=== PATIENT | female | born 1950 | race Caucasian/White ===

== ENCOUNTER 2016-08-14 12:59 | Emergency (ER) | payer MEDICARE ==
[2014-08-18 10:55] VITALS: BMI 26.1
[~2016-08-14 12:59] MED LIST: COUMADIN5 MG PO; HYDROCODONE-APA1 TAB PO; LUMIGAN 0.01%2.5 ML EACH EYE; PRINIVIL20 MG PO; RESTORIL15 MG PO; RESTORIL7.5 MG
[2016-08-14 14:04] LABS: BASOPHILS 0.2 % (0.0-2.0); EOSINOPHILS 0.1 % (0-7); HEMATOCRIT 47.4 % (36.0-48.0); HEMOGLOBIN 16.1 g/dL (12-16); IMMATURE GRANULOCYTES 0.1 % (0-5); LYMPHOCYTES 20.6 % (15-50); MCH 32.3 pg (26.0-34.0); MCV 95.2 fL (80.0-100.0); MEAN PLATELET VOLUME 9.1 fL (7.4-10.4); MONOCYTES 3.8 % (2-11); NEUTROPHILS 75.2 % (40-80); RBC 4.98 10x6/uL (4.00-5.40); RDW 13.7 % (11.5-14.5); WBC 9.9 10x3/uL (4.8-10.8)
[2016-08-14 14:10] LABS: PLATELET COUNT 366 10x3/uL (130-400)
[2016-08-14 14:15] LABS: ALBUMIN 4.8 g/dL (3.4-5.0); ALKALINE PHOSPHATASE 95 U/L (46-116); ALT (SGPT) 40 U/L (10-68); CALC OSMOLALITY 284 mosm/kg (275-300); CALCIUM 10.1 mg/dL (8.5-10.1); CARBON DIOXIDE 23.8 mmol/L (21.0-32.0); CHLORIDE - SERUM 103 mmol/L (98-107); CREATININE - SERUM 1.1 mg/dL (0.6-1.3); POTASSIUM - SERUM 4.3 mmol/L (3.5-5.1); PROTEIN - SERUM 8.8 g/dL (6.4-8.2); SODIUM 141 mmol/L (136-145); UREA NITROGEN 17 mg/dL (7-18); eGFR NON AFRICAN AMERICAN 52 mL/min (90-120)
[2016-08-14 14:18] LABS: GLUCOSE 129 mg/dL (74-106)
[2016-08-14 14:24] LABS: THYROID STIMULATING HORMONE 0.54 uIU/mL (0.36-3.74)
[2016-08-14 14:27] LABS: TROPONIN-I < 0.017 ng/mL (0.000-0.060)
== END 2016-08-14 15:30 | disposition home or self-care (01) ==
LOC: D.ER 12:59
PROVIDERS: Physician Assistant
DX: R00.0 Tachycardia, unspecified (principal); R42 Dizziness and giddiness; I10 Essential (primary) hypertension

== ENCOUNTER 2016-08-17 17:03 | Emergency (ER) | payer MEDICARE ==
[2014-08-18 10:55] VITALS: BMI 26.1
[2016-08-17 17:59] LABS: BASOPHILS 0.5 % (0.0-2.0); EOSINOPHILS 1.4 % (0-7); HEMATOCRIT 43.4 % (36.0-48.0); HEMOGLOBIN 14.9 g/dL (12-16); MCH 31.9 pg (26.0-34.0); MCHC 34.3 g/dL (31.0-37.0); MCV 92.9 fL (80.0-100.0); MEAN PLATELET VOLUME 8.8 fL (7.4-10.4); MONOCYTES 6.9 % (2-11); NEUTROPHILS 37.2 % (40-80); PLATELET COUNT 372 10x3/uL (130-400); RBC 4.67 10x6/uL (4.00-5.40); RDW 13.1 % (11.5-14.5); WBC 6.7 10x3/uL (4.8-10.8)
[2016-08-17 18:14] LABS: ALKALINE PHOSPHATASE 120 U/L (46-116); ALT (SGPT) 97 U/L (10-68); BILIRUBIN - TOTAL 0.67 mg/dL (0.2-1.3); CALC OSMOLALITY 283 mosm/kg (275-300); CALCIUM 10.2 mg/dL (8.5-10.1); CARBON DIOXIDE 22.9 mmol/L (21.0-32.0); CHLORIDE - SERUM 102 mmol/L (98-107); CREATININE - SERUM 1.1 mg/dL (0.6-1.3); GLUCOSE 112 mg/dL (74-106); POTASSIUM - SERUM 3.2 mmol/L (3.5-5.1); PROTEIN - SERUM 8.3 g/dL (6.4-8.2); SODIUM 140 mmol/L (136-145); UREA NITROGEN 25 mg/dL (7-18); eGFR NON AFRICAN AMERICAN 52 mL/min (90-120)
[2016-08-17 18:16] LABS: HELICOBACTER PYLORI IGG POSITIVE (NEGATIVE)
[2016-08-17 18:34] LABS: AMYLASE - SERUM 116 U/L (25-115); CREATINE KINASE 286 UL (21-215); LIPASE 243 U/L (73-393); MAGNESIUM - SERUM 2.2 mg/dL (1.8-2.4)
[2016-08-17 18:35] LABS: TROPONIN-I < 0.017 ng/mL (0.000-0.060)
[2016-08-17 18:36] LABS: CKMB 2.5 U/L (0.0-3.6)
[2016-08-17 20:55] LABS: UDS - AMPHET NEGATIVE QUAL (NEGATIVE); UDS - BARB NEGATIVE QUAL (NEGATIVE); UDS - BENZO POSITIVE QUAL (NEGATIVE); UDS - COCAINE NEGATIVE QUAL (NEGATIVE); UDS - METH NEGATIVE QUAL (NEGATIVE); UDS - OPIATE POSITIVE QUAL (NEGATIVE); UDS - PCP NEGATIVE QUAL (NEGATIVE); UDS - THC POSITIVE QUAL (NEGATIVE)
[2016-08-17 20:58] LABS: APPEARANCE HAZY (CLEAR); BILIRUBIN NEGATIVE (NEGATIVE); COLOR DK YELLOW (YELLOW); GLUCOSE NEGATIVE (NEGATIVE); KETONE SMALL mg/dL (NEGATIVE); LEUKOCYTE ESTERASE 1+ (NEGATIVE); NITRITE NEGATIVE (NEGATIVE); PROTEIN 2+ mg/dL (NEGATIVE); SPECIFIC GRAVITY 1.025 (1.005-1.020); UROBILINOGEN NORMAL (NORMAL)
[2016-08-17 20:59] LABS: BACTERIA MODERATE /hpf (NONE SEEN); EPITHELIAL CELLS 0-5 /hpf (0-5); GRANULAR CAST 0-5 /lpf (NONE SEEN); HYALINE CAST OCC /lpf (NONE SEEN); MUCUS <1+ /lpf (NONE SEEN); RED CELLS - URINE 0-5 /hpf (0-5)
== END 2016-08-17 23:15 | disposition home or self-care (01) ==
LOC: D.ER 17:03
PROVIDERS: Emergency Medicine; Nurse Practitioner Family
DX: R10.11 Right upper quadrant pain (principal); R11.2 Nausea with vomiting, unspecified; I10 Essential (primary) hypertension

== ENCOUNTER 2016-09-12 11:15 | Inpatient (IN) | payer MEDICARE ==
[~2016-09-12] VITALS: Ht 162.6 cm; Wt 66.0 kg
[2016-09-12 12:27] LABS: BASOPHILS 0.4 % (0.0-2.0); EOSINOPHILS 0.9 % (0-7); HEMATOCRIT 45.8 % (36.0-48.0); HEMOGLOBIN 15.8 g/dL (12-16); IMMATURE GRANULOCYTES 0.1 % (0-5); LYMPHOCYTES 47.4 % (15-50); MCH 32.8 pg (26.0-34.0); MCHC 34.5 g/dL (31.0-37.0); MEAN PLATELET VOLUME 9.1 fL (7.4-10.4); MONOCYTES 6.4 % (2-11); NEUTROPHILS 44.8 % (40-80); PLATELET COUNT 300 10x3/uL (130-400); RBC 4.82 10x6/uL (4.00-5.40); RDW 13.2 % (11.5-14.5); WBC 7.4 10x3/uL (4.8-10.8)
[2016-09-12 12:37] LABS: APTT 31.6 SECONDS (22.8-39.4)
[2016-09-12 12:38] LABS: INR 1.11 (0.85-1.17); PROTIME 14.1 SECONDS (11.6-15.0)
[2016-09-12 12:44] LABS: ALBUMIN 4.4 g/dL (3.4-5.0); ALKALINE PHOSPHATASE 103 U/L (46-116); ALT (SGPT) 53 U/L (10-68); CALC OSMOLALITY 283 mosm/kg (275-300); CARBON DIOXIDE 24.5 mmol/L (21.0-32.0); CHLORIDE - SERUM 104 mmol/L (98-107); CREATININE - SERUM 1.5 mg/dL (0.6-1.3); GLUCOSE 93 mg/dL (74-106); POTASSIUM - SERUM 3.4 mmol/L (3.5-5.1); SODIUM 141 mmol/L (136-145); UREA NITROGEN 22 mg/dL (7-18); eGFR NON AFRICAN AMERICAN 37 mL/min (90-120)
[2016-09-12 12:46] LABS: CREATINE KINASE 136 UL (21-215); LIPASE 280 U/L (73-393)
[2016-09-12 12:48] LABS: TROPONIN-I < 0.017 ng/mL (0.000-0.060)
[2016-09-12 13:44] LABS: UDS - AMPHET NEGATIVE QUAL (NEGATIVE); UDS - BARB NEGATIVE QUAL (NEGATIVE); UDS - BENZO POSITIVE QUAL (NEGATIVE); UDS - COCAINE NEGATIVE QUAL (NEGATIVE); UDS - METH NEGATIVE QUAL (NEGATIVE); UDS - OPIATE POSITIVE QUAL (NEGATIVE); UDS - PCP NEGATIVE QUAL (NEGATIVE); UDS - THC POSITIVE QUAL (NEGATIVE)
[2016-09-12 13:52] LABS: APPEARANCE HAZY (CLEAR); BACTERIA MODERATE /hpf (NONE SEEN); BILIRUBIN NEGATIVE (NEGATIVE); COLOR YELLOW (YELLOW); EPITHELIAL CELLS 0-5 /hpf (0-5); GLUCOSE NEGATIVE (NEGATIVE); HYALINE CAST OCC /lpf (NONE SEEN); KETONE NEGATIVE (NEGATIVE); LEUKOCYTE ESTERASE 1+ (NEGATIVE); MUCUS >1+ /lpf (NONE SEEN); NITRITE NEGATIVE (NEGATIVE); PROTEIN TRACE mg/dL (NEGATIVE); RED CELLS - URINE NONE SEEN /hpf (0-5); SPECIFIC GRAVITY 1.015 (1.005-1.020); UROBILINOGEN NORMAL (NORMAL)
[2016-09-13] VITALS (7 sets, daily range): BP systolic 135–177; BP diastolic 70–99; BMI 24.0
--- NOTE | 2016-09-13 00:01 | NUR ---
RECEIVED TO ROOM 2109 VIA WHEELCHAIR FROM EMERGENCY DEPT. DX: CHEST PAIN/ TACHYCARDIA/VOMITTING. AWAKE AND ALERT X 4. DENIES ANY CHEST PAIN OR DISCOMFORT AT THIS TIME. IV IN RIGHT AC IS SALINE LOCKED. VS STABLE. TELEMETRY ON AND SHOWS SR AT 70/MIN. WILL CONTINUE TO MONITOR.
[2016-09-13] MEDS ORDERED: LOPRESSOR25 MG PO (01:52)
[2016-09-13] MEDS ORDERED: NEXIUM40 MG PO (01:53)
[2016-09-13] MEDS ORDERED: CARAFATE1 G/10 ML PO (01:54)
[2016-09-13] MEDS ORDERED: CYCLOBENZAPRINE10 MG PO (01:56)
[2016-09-13] MEDS ORDERED: OXYCONTIN10 MG (02:03)
[2016-09-13 07:03] LABS: BASOPHILS 0.8 % (0.0-2.0); EOSINOPHILS 1.6 % (0-7); HEMATOCRIT 40.1 % (36.0-48.0); HEMOGLOBIN 13.5 g/dL (12-16); LYMPHOCYTES 42.4 % (15-50); MCH 32.5 pg (26.0-34.0); MCHC 33.7 g/dL (31.0-37.0); MCV 96.6 fL (80.0-100.0); MEAN PLATELET VOLUME 8.7 fL (7.4-10.4); MONOCYTES 5.5 % (2-11); NEUTROPHILS 49.7 % (40-80); PLATELET COUNT 263 10x3/uL (130-400); RBC 4.15 10x6/uL (4.00-5.40); RDW 13.4 % (11.5-14.5)
[2016-09-13 07:08] LABS: WBC 4.9 10x3/uL (4.8-10.8)
[2016-09-13 07:16] LABS: ALBUMIN 3.7 g/dL (3.4-5.0); ANION GAP 12.6 mmol/L (8-16); BILIRUBIN - TOTAL 0.73 mg/dL (0.2-1.3); CARBON DIOXIDE 26.1 mmol/L (21.0-32.0); POTASSIUM - SERUM 3.7 mmol/L (3.5-5.1); PROTEIN - SERUM 6.8 g/dL (6.4-8.2)
[2016-09-13 07:17] LABS: CREATININE - SERUM 0.9 mg/dL (0.6-1.3)
--- NOTE | 2016-09-13 08:00 | NUR ---
PATIENT IS AWAKE AND ALERT SHE DID REQUEST HER BLOOD SUGAR BE CHECKED, SHE SAYS SHE HAS HYPOGYCEMIA. DID START IV D5 1/2 NS AT 125 NOW.
--- NOTE | 2016-09-13 10:30 | NUR ---
IV SITE ON RIGHT BLEW, CALLED RASHARD IV NURSE TO RESITE, RASHARD ATTEMPTED WITHOUT SUCCESS, SHE WAS ABLE TO SITE A MEDLINE IN LEFT UPPER ARM.
--- NOTE | 2016-09-13 11:54 | NUR ---
PATIENT ASKS FOR PAIN MED, SHE RATES PAIN 8/10 GENERALIZED.
--- NOTE | 2016-09-13 12:40 | NUR ---
PATIENT HAS COMPANY, BUT SAYS PAIN IS LESS.
--- NOTE | 2016-09-13 15:21 | NUR ---
RATIONALE FOR SCD'S EXPLAINED. REFUSED SCD'S AT THIS TIME
--- NOTE | 2016-09-13 16:30 | NUR ---
PATIENT REQUESTING SOMETHING TO EAT, CALLED DR. HUSTON AND HE SAYS "YES, SHE CAN EAT" ORDERED HER A CARDIAC SOFT DIET. PATIENT SAYS SHE EATS VERY BLAND AND SOFT FOOD. SHE SAYS SHE HAS NOT HAD MUCH TO EAT LATELY.
--- NOTE | 2016-09-13 18:15 | NUR ---
IV D/C'D, SALINE LOCKED MEDLINE.
--- NOTE | 2016-09-13 20:10 | NUR ---
REPORT RECEIVED AND CARE ASSUMED. RESTING IN BED IN NO ACUTE DISTRESS. SEE ASSESSMENT FLOW SHEET FOR FURTHER DETAILS. WILL CINTINUE TO MONITOR.
[2016-09-14] VITALS: BP 115/72
--- NOTE | 2016-09-14 01:40 | NUR ---
URINE SENT TO LAB PER CLOTHING PATTERN PREPARER.
[2016-09-14 03:05] LABS: APPEARANCE HAZY (CLEAR); BILIRUBIN NEGATIVE (NEGATIVE); COLOR YELLOW (YELLOW); GLUCOSE NEGATIVE (NEGATIVE); KETONE NEGATIVE (NEGATIVE); LEUKOCYTE ESTERASE TRACE (NEGATIVE); NITRITE NEGATIVE (NEGATIVE); PROTEIN NEGATIVE (NEGATIVE); UROBILINOGEN NORMAL (NORMAL)
[2016-09-14 03:08] LABS: BACTERIA MANY /hpf (NONE SEEN); EPITHELIAL CELLS 0-5 /hpf (0-5); GRANULAR CAST RARE /lpf (NONE SEEN); HYALINE CAST 0-5 /lpf (NONE SEEN); MUCUS >1+ /lpf (NONE SEEN)
[2016-09-14 03:09] LABS: AMORPHOUS SEDIMENT <1+ /lpf (NONE SEEN); CALCIUM OXALATE CRYSTALS OCC /hpf (NONE SEEN)
[2016-09-14 06:28] VITALS: BP 105/61
[2016-09-14 06:54] LABS: BASOPHILS 0.4 % (0.0-2.0); EOSINOPHILS 2.1 % (0-7); HEMATOCRIT 36.2 % (36.0-48.0); LYMPHOCYTES 38.1 % (15-50); MCH 32.1 pg (26.0-34.0); MCHC 33.1 g/dL (31.0-37.0); MCV 96.8 fL (80.0-100.0); NEUTROPHILS 52.4 % (40-80); PLATELET COUNT 244 10x3/uL (130-400); RBC 3.74 10x6/uL (4.00-5.40); RDW 13.5 % (11.5-14.5); WBC 5.3 10x3/uL (4.8-10.8)
[2016-09-14 07:26] LABS: ALBUMIN 3.2 g/dL (3.4-5.0); ANION GAP 11.1 mmol/L (8-16); BILIRUBIN - TOTAL 0.5 mg/dL (0.2-1.3); CARBON DIOXIDE 26.9 mmol/L (21.0-32.0); CREATININE - SERUM 0.9 mg/dL (0.6-1.3); PROTEIN - SERUM 5.9 g/dL (6.4-8.2); THYROID STIMULATING HORMONE 1.01 uIU/mL (0.36-3.74)
[2016-09-14 08:00] VITALS: BP 95/72
--- NOTE | 2016-09-14 08:00 | NUR ---
PATIENT WAS LAYING IN BED. ALERT AND ORIENTED. HAS BEEN NPO SINCE MIDNIGHT FOR EGD. RATES PAIN 8/10 TO NECK HOWEVER DOES HAVE PO MED FOR PAIN BUT IS NPO. VISITOR AT BEDSIDE.
[2016-09-14 10:52] VITALS: Ht 162.6 cm; Wt 66.0 kg
[2016-09-14 11:46] VITALS: BP 150/86
--- NOTE | 2016-09-14 15:37 | NUR ---
PRE-OP OF LR AND PEPCID ADMINISTERED FOR EGD.
[2016-09-14 16:00] VITALS: BP 135/82
--- NOTE | 2016-09-14 16:30 | NUR ---
PATIENT REQUESTED FSBS BE CHECKED BECAUSE SHE WASN'T FEELING RIGHT AND THOUGHT HER BLOOD SUGAR HAD DROPPED. FSBS OBTAINED AND WAS 74F. PATIENT RELATES SHE PASSES OUT WHEN HER BLOOD SUGAR DROPS TO 60. PATIENT WAS COOL AND CLAMMY. DR WOOD HERE AND ORDER RECEIVED FOR AMP OF D50. ADMINISTERED PER LEFT PERIPHERAL IV.
--- NOTE | 2016-09-14 17:00 | NUR ---
DOWN TO OUTPATIENT FOR EGD.
[2016-09-14 20:00] VITALS: BP 174/101
--- NOTE | 2016-09-14 20:15 | NUR ---
RECEIVED REPORT AND CARE ASSUMED. LYING IN BED RESTING QUIETLY. DENIES ANY NEEDS AT THIS TIME. BED IN LOW POSITION AND CALL LIGHT IN EASY REACH. WILL CONTINUE TO MONITOR.
--- NOTE | 2016-09-14 21:30 | NUR ---
SEE ASSESSMENT FLOW SHEET FOR FUTRTHER DETAILS.
--- NOTE | 2016-09-14 21:31 | NUR ---
NORCO GIVEN PO FOR LEVEL#8 GENERALIZED PAIN.
[2016-09-15] VITALS: BP 97/74
[2016-09-15 04:00] VITALS: BP 161/75
[2016-09-15 06:52] LABS: BASOPHILS 0.8 % (0.0-2.0); EOSINOPHILS 2.4 % (0-7); HEMATOCRIT 37.1 % (36.0-48.0); HEMOGLOBIN 12.4 g/dL (12-16); IMMATURE GRANULOCYTES 0.2 % (0-5); LYMPHOCYTES 44.5 % (15-50); MCHC 33.4 g/dL (31.0-37.0); MCV 95.9 fL (80.0-100.0); MEAN PLATELET VOLUME 8.9 fL (7.4-10.4); MONOCYTES 5.9 % (2-11); NEUTROPHILS 46.2 % (40-80); PLATELET COUNT 247 10x3/uL (130-400); RBC 3.87 10x6/uL (4.00-5.40); RDW 13.3 % (11.5-14.5); WBC 5.1 10x3/uL (4.8-10.8)
[2016-09-15 07:09] LABS: ALBUMIN 3.4 g/dL (3.4-5.0); ALKALINE PHOSPHATASE 75 U/L (46-116); ALT (SGPT) 27 U/L (10-68); CALC OSMOLALITY 281 mosm/kg (275-300); CALCIUM 9.1 mg/dL (8.5-10.1); CARBON DIOXIDE 27.5 mmol/L (21.0-32.0); CHLORIDE - SERUM 106 mmol/L (98-107); CREATININE - SERUM 0.8 mg/dL (0.6-1.3); GLUCOSE 90 mg/dL (74-106); POTASSIUM - SERUM 3.6 mmol/L (3.5-5.1); PROTEIN - SERUM 6.5 g/dL (6.4-8.2); SODIUM 142 mmol/L (136-145); UREA NITROGEN 9 mg/dL (7-18); eGFR NON AFRICAN AMERICAN 76 mL/min (90-120)
--- NOTE | 2016-09-15 07:53 | NUR ---
AM ROUNDING DONE WITH PATIENT COMPLAINING OF PAIN 6/10 TO "ALL MY JOINTS AND NECK". WILL GIVE NORCO WITH AM MEDS. LEFT MIDLINE SEEN, SALINE LOCK. ON HEART MONITOR SHOWING SR, HR 75. ON ROOM AIR. WILL COTNINUE TO MONITOR.
[2016-09-15 09:30] VITALS: BP 134/91
--- NOTE | 2016-09-15 12:47 | NUR ---
PT C/O "FEELING IT IN HER EARS" AND WANTING HER BP TAKEN. BP ON THE MACHINE WAS 214/107. BP TAKEN WITH A MANUAL AND WAS 204/102. NIGEL (DR BERGER'S NURSE) NOTIFIED. AWAITING ORDERS
[2016-09-15 12:49] VITALS: BP 204/102
[2016-09-15 14:03] VITALS: BP 162/88
[2016-09-15] MEDS ORDERED: CATAPRES0.1 MG PO (14:06)
[2016-09-15] MEDS ORDERED: ZOLOFT50 MG PO (14:08)
--- NOTE | 2016-09-15 15:13 | NUR ---
1507-WHILE PATIENT LAYING FLAT, LEFT MIDLINE REMOVED WITH CATH TIP INTACT. TO LAY FLAT X 15 MIN.
--- NOTE | 2016-09-15 16:28 | NUR ---
VERBAL AND WRITEN DISCHARGE INSTRUCTION GIVEN TO PATIENT. DICHARGED HOME VIA WHEELCHAIR.
--- NOTE | 2016-09-19 12:04 | OP ---
PATIENT NAME: YAJAIRA SMITH MEDICAL RECORD: [id number] :48 LOCATION:D.M2 D.0 ADMISSION DATE:09/13/16 SURGEON: CONCEPCION HUSTON DO DATE OF OPERATION: 09/14/2016 PROCEDURE: EGD with biopsies. ENDOSCOPIST: Concepcion Huston DO SCOPE: Olympus video gastroscope. MEDICATIONS: Propofol 220 mg IV per anesthesia. INDICATIONS FOR PROCEDURE: Persistent nausea and vomiting and epigastric abdominal pain. FINDINGS: Informed consent was given. The patient was made comfortable with the above medication. After reaching an adequate level of sedation by slow IV push, the patient was placed on the left side. The endoscope was then advanced under direct visualization through the mouth to the second portion of the duodenum. The upper, middle and distal thirds of the esophagus appeared normal. At the GE junction, there was evidence of some mild LA class B reflux induced esophagitis. Scope was advanced in the stomach and retroflexed to view the cardia, where a small sliding hiatal hernia was present. The fundus of the stomach as well as the body and antrum all appeared normal. Random biopsies were taken of the antrum, incisura and body of the stomach and sent for histology and rule out H. pylori. The scope was advanced into the duodenum, which showed normal mucosa in the bulb and second portion. The scope was withdrawn from the patient. The patient tolerated the procedure well and there were no complications. ESTIMATED BLOOD LOSS: Less than 5 cc. IMPRESSION: 1. Reflux induced esophagitis at the GE junction, which is mild. 2. Small sliding hiatal hernia. 3. Nausea and vomiting, which has resolved today. PLAN AND RECOMMENDATIONS: 1. Continue current medications. 2. Start regular diet at this time and monitor for changes in symptoms. TRANSINT:[id number] Voice Confirmation ID: [id number] DOCUMENT ID: [id number] CONCEPCION HUSTON DO at 1204 CC: [id number] DICTATION DATE: 09/14/16 172 INVESTIGATIVE REPORTER: 09/14/162252 DIS IN 09/15/16 [id number] [place] [address]
--- NOTE | 2016-09-19 14:38 | EC ---
PATIENT:YAJAIRA SMITH DATE OF SERVICE: 09/13/16 SEX: F MEDICAL RECORD: [id number] DATE OF : 48 LOCATION:D.M2 D.211 AGE OF PATIENT: 66 ADMISSION DATE: 09/13/16 REFERRING PHYSICIAN: INTERPRETING PHYSICIAN: PHIL ROSAS MD ECHOCARDIOGRAM REPORT ECHO CHARGES 4 ECHO COMPLETE CLINICAL DIAGNOSIS: SOB/HTN ECHOCARDIOGRAPHIC MEASUREMENTS (adult normal given) AC root (d.<3.7cm) 3.5 LV Septum d (<1.2 cm> 1.2 Valve Excursion 1.9 LV Septum (systole) 1.7 Left Atria (s.<4.0cm> 3.1 LVPW d(<1.2cm) 1.2 RV (d.<2.3cm) 2.2 LVPW (sytole) 1.5 LV diastole(<5.6CM) 3.8 MV E-F(>70mm/sec) LV systole 2.1 LVOT Diameter 1.9 MV exc.(>10mm) 1.4 Est.ejection fraction (50-75%) Pericardial Effusion N DOPPLER: LVIT A 126 E 77.0 LA RVSP 25 LVOT 143 AOP1/2T Asc. Ao 142 RVOT 101 RA PA 110 AV Gradient Peak 8.09 AV Mean 5.06 AV Area 2.4 MV Gradient Peak 5.28 MV Mean 2.20 MV Area COMMENTS: Education And Training Coordinator: Renetta WHITE Spray Rig Operator:1 Dr. Rosas TAPE# PACS DATE OF SERVICE: 09/13/2016 FINDINGS: 1. Left ventricular chamber size is within normal limits. Left ventricular systolic function is normal. Overall ejection fraction estimated at 65%. 2. Left atrium is within normal limits at 3.1 cm. Right atrium and right ventricle chamber sizes are as well within normal limits. 3. Valvular structures have normal structure and motion. 4. Doppler interrogation reveals only trace mitral regurgitation, mild tricuspid regurgitation, no other valvular insufficiency or stenosis and ECHOCARDIOGRAM REPORT [id number] YAJAIRA SMITH pulmonary systolic pressure is normal estimated at 25 mmHg. 5. No evidence of pericardial effusion or left ventricular thrombus. TRANSINT:[id number] Voice Confirmation ID: [id number] DOCUMENT ID: [id number] PHIL ROSAS MD at 1438 CC: [id number] DICTATION DATE: 09/13/16 1705 EMBOSSING TOOL SETTER: 09/14/16 0906 DIS IN 09/15/16 [facility] [address] [id number]
== END 2016-09-15 16:29 | disposition home or self-care (01) | DRG 392 ==
LOC: D.ER 11:15 → D.SDCHOLD 15:25 → OBSVTIME 15:25 → D.ER 15:25 → D.M2 15:25
PROVIDERS: Emergency Medicine; Internal Medicine Gastroenterology; ADMIT Family Medicine
PROC: 05HC33Z Insertion of Infusion Device into Left Basilic Vein, Percutaneous Approach (ICD-10-PCS; principal; 2016-09-13)
PROC: B54NZZA Ultrasonography of Left Upper Extremity Veins, Guidance (ICD-10-PCS; 2016-09-13)
PROC: 0DB68ZX Excision of Stomach, Via Natural or Artificial Opening Endoscopic, Diagnostic (ICD-10-PCS; 2016-09-14)
DX: K52.9 Noninfective gastroenteritis and colitis, unspecified (principal); N17.9 Acute kidney failure, unspecified; N39.0 Urinary tract infection, site not specified; K21.0 Gastro-esophageal reflux disease with esophagitis; K44.9 Diaphragmatic hernia without obstruction or gangrene; K31.84 Gastroparesis; I08.1 Rheumatic disorders of both mitral and tricuspid valves; R00.0 Tachycardia, unspecified; I10 Essential (primary) hypertension; E04.1 Nontoxic single thyroid nodule

== ENCOUNTER 2017-08-15 10:41 | Outpatient (CLI) | payer MEDICARE ==
[~2017-08-15] VITALS: Ht 162.6 cm; Wt 80.5 kg
--- NOTE | ~2017-08-15 | OP ---
PATIENT NAME: YAJAIRA SMITH MEDICAL RECORD: [id number] :48 LOCATION:D.CAT ADMISSION DATE: SURGEON: SHABBIR QUEZADA MD DATE OF OPERATION: 08/15/2017 PROCEDURE: Left heart catheterization, selective coronary angiography, right femoral artery approach. CATHETERS: A 5-Malagasy sheath, 5/4 left and right Russ, 5/4 pig. The procedure was well tolerated. The patient was returned to the mckeon, sheath removed, and proceeded immediately to PTCA stenting of the LAD. FINDINGS: Left ventriculography in 30-degree LORENZANA view: Normal wall motion, normal systolic function. CORONARY ANATOMY. LEFT MAIN: Left main is free of disease. LAD: In its mid portion has a diffuse stenosis of 80%. CIRCUMFLEX: The circumflex is a dominant left system, has one moderate sized OM with a discrete 80% stenosis. RIGHT CORONARY ARTERY: Rudimentary, no significant disease. IMPRESSION: Two-vessel disease. PLAN: Intervention of the LAD, intervention of circumflex and OM at a later date. DESCRIPTION OF PROCEDURE: A 5-Malagasy sheath was changed for a 6-Malagasy sheath. EBU guide catheter provided good guide support followed by 300 cm Whisper wire was placed across the occluded LAD down portion of this vessel. Stent deployed was a 2.5 x 18 Davey drug-eluting stent up to 14 atmospheres for 45 seconds. Final injection shows excellent resolution of 80% stenosis, no significant residual. GAVI flow was 3 throughout the procedure. Sheath was closed with ExoSeal device. Plavix was loaded in the lab. Plan for intervention to the OM at a later date. TRANSINT:[id number] Voice Confirmation ID: [id number] DOCUMENT ID: [id number] SHABBIR QUEZADA MD at 1512 CC: [id number] DICTATION DATE: 08/15/17 1346 LEGAL SECRETARY: 08/15/17 1509 DEP CLI 08/15/[address] [address]
--- NOTE | ~2017-08-15 | HEMODYNAMI ---
PATIENT:YAJAIRA SMITH MEDICAL RECORD: [id number] : 48 LOCATION:CRISTOPHER ADMISSION DATE: 08/15/17 Generatedon:08/15/201713:48 Patient name: YAJAIRA SMITH Patient #: [id number] SSN : : 1950 Date of study: 08/15/2017 Page: Of Hemodynamic Procedure Report Patient Data Patient Demographics Procedure consent was obtained First Name: YAJAIRA Gender: Female Last Name: LUIS : 1950 [facility] Initial: E Age: 67 year(s) Patient #: [id number] Race: Unknown Additional ID: [id number] Contact details Address: [address] [place] [address] State: [place] City: [place] Zip code: [address] Past Medical History Allergies: No known allergies Admission Admission Data Admission Date: 08/15/2017 Admission Time: 10:41 Admit Source: Other Lab Results Lab Result Date: 08/15/2017 Lab Result Time: 11:19 Biochemistry Name Units Result Min Max BUN mg/dl 17 --(---*)-- 7 18 Creatinine mg/dl 1.5 --(----)-* 0.6 1.3 CBC Name Units Result Min Max Hematocrit % 43.2 --(*---)-- 42 54 Hemoglobin g/dl 14.8 --(-*--)-- 13.5 17.5 Procedure Procedure Types Cath Procedure Diagnostic Procedure LHC LHC w/Coronaries PCI Procedure Coronary Stent Coronary Stent Initial Miscellaneous Procedures Moderate Sedation up to 15 minutes Procedure Description Procedure Date Procedure Date: 08/15/2017 Procedure Start Time: 13:20 Procedure End Time: 13:40 Procedure Staff Name Function Marizol Vasquez RN Nurse Jas Oliveros MD Performing Physician Rico Mason RT Monitor Mamie Pizarro RT Scrub Mercedez Chisholm RN Nurse Procedure Data Cath Procedure Fluoroscopy Diagnostic fluoroscopy Total fluoroscopy Time: 3.6 time: 3.6 min min Diagnostic fluoroscopy Total fluoroscopy dose: 568 dose: 568 mGy mGy Contrast Material Contrast Material Type Amount (ml) Isovue 300 104 Entry Location Entry Primary Successful Side Size Upsize Upsize Entry Closure Succes sful Closure Location (Fr) 1 (Fr) 2 (Fr) Remarks Device Remarks Femoral Right 5 Fr 6 Fr Exoseal artery Short Estimated blood loss: 10 ml Diagnostic catheters Device Type Used For End Catheter Placement MULTIPACK JL 4.0 5Fr Procedure catheter MULTIPACK 3DRC 5Fr Procedure catheter MULTIPACK Pigtail 5 Fr Procedure catheter Procedure Complications No complications Procedure Medications Medication Administration Route Dosage 0.9% NaCl I.V. 100 ml/hr Oxygen NC 2 l/min Lidocaine 2% added to field 20 Heparin Flush Bag added to field 2 bags (1000units/500ml NS) Fentanyl I.V. 50 mcg Versed I.V. 1 mg Versed I.V. 1 mg Fentanyl I.V. 50 mcg Fentanyl I.V. 50 mcg Versed I.V. 1 mg Versed I.V. 1 mg Fentanyl I.V. 50 mcg Fentanyl I.V. 50 mcg Versed I.V. 1 mg Heparin Bolus I.V. 4000 units Integrilin (Bolus I.V. 7.3 ml 2mg/ml) Versed I.V. 1 mg Fentanyl I.V. 50 mcg Fentanyl I.V. 50 mcg Versed I.V. 1 mg Fentanyl I.V. 50 mcg Versed I.V. 1 mg Plavix P.O. 600 mg Hemodynamics Rest HGB: 14.8 (g/dl) Heart Rate: 84 (bpm) Pressure Samples Time Site Value (mmHg) Purpose Heart Use Rate(bpm) 13:25 LV 139/10,15 Snapshot 74 13:26 LV 124/12,13 Pullback 82 13:26 AO 120/76(92) Pullback 82 Gradients Valve Time Site 1 Site 2 Mean SEP/DFP Peak To Heart Use (mmHg) (sec/min) Peak Rate (mmHg) (bpm) Aortic 13:26 LV AO 5 17 4 82 124/12,13 120/76(92) Calculations Valve P-P Mean Valve Index Valve Source Name Gradient Area Flow (cm2) Aortic 4 5 4 5 Snapshots Pre Cath Intra NCS Post Cath Vital Signs Time Heart Resp SPO2 etCO2 NIBP (mmHg) Rhythm Pain Sedation Rate (ipm) (%) (mmHg) Status Level (bpm) 13:05:45 93 20 96 18 144/93(112) NSR 0 (11) 10(A) , No pain 13:10:05 89 16 100 24.8 138/76(113) NSR 0 (11) 10(A) , No pain 13:14:15 82 16 100 19.5 128/91(113) NSR 0 (11) 10(A) , No pain 13:18:25 89 14 100 25.6 121/82(102) NSR 0 (11) 10(A) , No pain 13:22:35 81 16 100 33.1 114/77(97) NSR 0 (11) 10(A) , No pain 13:26:45 78 18 100 42.1 116/68(104) NSR 0 (11) 10(A) , No pain 13:30:49 94 15 100 30.8 106/77(86) NSR 0 (11) 10(A) , No pain 13:34:54 95 16 100 39.1 124/72(109) NSR 0 (11) 10(A) , No pain 13:39:00 92 18 100 32.4 103/77(85) NSR 0 (11) 10(A) , No pain Medications Time Medication Route Dose Verified Delivered Reason Not es Effectiveness by by 13:05:14 0.9% NaCl I.V. 100ml/hr Jas Newsome used for [facility] Kevin Chisholm RN procedure 13:05:25 Oxygen NC 2 l/min Jas Newsome Per physician [facility] Kevin Chisholm RN, MD 13:05:33 Lidocaine 2% added 20ml Jas Mark for local to vial [facility] anesthetic field MD [place] 13:05:44 Heparin Flush added 2 bags Jas Mark used for Bag to [facility] procedure (1000units/500ml field MD [place] NS) 13:15:43 Fentanyl I.V. 50 mcg Jas Newsome for sedation [facility] Kevin Chisholm RN, MD 13:15:53 Versed I.V. 1 mg Jas Murphyy for sedation [facility] Kevin Chisholm RN, MD 13:17:11 Versed I.V. 1 mg Jas Murphyy for sedation [facility] Kevin Chisholm RN, MD 13:17:14 Fentanyl I.V. 50 mcg Jas Mercedez for sedation [facility] Kevin Chisholm RN, MD 13:18:39 Fentanyl I.V. 50 mcg Jas Mercedez for sedation [facility] Kevin Chisholm RN, MD 13:18:46 Versed I.V. 1 mg Jas Mercedez for sedation [facility] Kevin Chisholm RN, MD 13:22:15 Versed I.V. 1 mg Jas Mercedez for sedation [facility] Kevin Chisholm RN, MD 13:22:20 Fentanyl I.V. 50 mcg Jas Mercedez for sedation [facility] Kevin Chisholm RN, MD 13:26:10 Fentanyl I.V. 50 mcg Jas Mercedez for sedation [facility] Kevin Chisholm RN, MD 13:26:16 Versed I.V. 1 mg Jas Mercedez for sedation [facility] Kevin Chisholm RN, MD 13:28:27 Fentanyl I.V. 50 mcg Jas Mercedez for sedation [facility] Kevin Chisholm RN, MD 13:28:33 Versed I.V. 1 mg Jas Mercedez for sedation [facility] Kevin Chisholm RN, MD 13:31:13 Fentanyl I.V. 50 mcg Jas Mercedez for sedation [facility] Kevin Chisholm RN, MD 13:31:25 Versed I.V. 1 mg Jas Mercedez for sedation [facility] Kevin Chisholm RN, MD 13:31:45 Heparin Bolus I.V. 4000 Jas Mercedez for jamie ified units [facility] Kevin Chisholm RN anticoagulation by dr. MD christiansen 13:31:59 Integrilin I.V. 7.3ml Jas Mercedez for was te (Bolus 2mg/ml) [facility] Kevin Chisholm RN antiplatelet 2.7ML MD therapy 13:35:26 Versed I.V. 1 mg Jas Mercedez for sedation [facility] Kevin Chisholm RN, MD 13:35:39 Fentanyl I.V. 50 mcg Jas Mercedez for sedation [facility] Kevin Chisholm RN, MD 13:46:34 Plavix P.O. 600 mg Jas Mercedez for [facility] Kevin Chisholm RN antiplatelet therapy Procedure Log Time Note 12:50:51 Mamie Pizarro RT(R) sent for patient. Start room use. 13:01:26 Informed consent obtained and on chart 13:01:29 Admit Source: Other 13:01:50 Diagnostic Cath status Elective 13:01:58 Time tracking: Regular hours 13:02:01 Plan of Care:Hemodynamics will remain stable., Cardiac rhythm will remain stable., Comfort level will be maintained., Respiratory function will remain adequate., Patient/ family verbilizes understanding of procedure., Procedure tolerated without complication., Recovers from procedure without complications.. 13:02:12 Patient received from Pre/Post Procedure Room to CCL 2 Alert and oriented. Tansferred to table in Supine position. 13:02:13 ECG and BP/O2 sat monitors applied to patient. 13:02:13 Correct patient and procedure confirmed by team. 13:02:13 Warm blankets applied, and murtaza hugger turned on for patient comfort. 13:02:32 H&P Date Dictated: 08/10/2017 Within 30 days and on chart., H&P Addendum completed by physician on day of procedure. (MUST COMPLETE FOR ALL OUTPATIENTS). 13:02:59 Patient allergic to No known allergies 13:04:44 Vital chart was started 13:05:14 0.9% NaCl 100ml/hr I.V. was administered by Mercedez Chisholm RN; used for procedure; 13:05:25 Oxygen 2 l/min NC was administered by Mercedez Chisholm RN; Per physician; 13:05:33 Lidocaine 2% 20ml vial added to field was administered by Jas Oliveros MD; for local anesthetic; 13:05:44 Heparin Flush Bag (1000units/500ml NS) 2 bags added to field was administered by Jas Oliveros MD; used for procedure; 13:08:35 Is the patient allergic to Iodine/contrast media? No. 13:11:57 Is patient on blood thinner?No 13:11:58 Patient diabetic? No. 13:12:02 Snore? Yes 13:12:02 Previous problem with sedation/anesthesia? No ? 13:12:03 Sleep apnea? No 13:12:04 Deviated septum? No 13:12:05 Opens mouth fully? Yes 13:12:06 Sticks out tongue? Yes 13:12:08 Airway obstruction? No ? 13:12:15 Dentures? Yes out 13:12:24 Pre procedure: right dorsailis pedis pulse 2+ Normal; easily identifiable; not easily obliterated 13:12:25 Patient pain scale 0/10 ?. 13:12:36 IV patent on arrival in left forearm with 0.9% NaCl at [facility]. 13:14:00 Lab Result : BUN 17 mg/dl 13:14:01 Lab Result : Hematocrit 43.2 % 13:14:01 Lab Result : Hemoglobin 14.8 g/dl 13:14:01 Lab Result : Creatinine 1.5 mg/dl 13:14:03 Lab results completed and on chart. 13:14:05 Right groin area was prepped with chlora-prep and draped in sterile fashion 13:14:07 Sharps counted by scrub and verified by R.N. 13:14:07 Alarms reviewed by R. N. 13:14:11 Use device set Femoral Dx 13:14:12 ACIST Syringe (06809) opened to sterile field. 13:14:14 ACIST Manifold (39509) opened to sterile field. 13:14:14 ACIST Hand Control (35517) opened to sterile field. 13:14:17 Medline Cath Pack ([id number]) opened to sterile field. 13:14:18 Bag Decanter (2002S) opened to sterile field. 13:14:19 Tegaderm 4 x 4 (1626W) opened to sterile field. 13:14:20 DIAGNOSTIC Multipack 5Fr catheter set (HZ6970) opened to sterile field. 13:14:21 DIAGNOSTIC WIRE .035 260cm J wire (224455) opened to sterile field. 13:14:21 SHEATH 5FR [place] (BSQ160) opened to sterile field. 13:14:26 PERCUTANEOUS ENTRY 19GA needle opened to sterile field. 13:14:31 Baseline sample Acquired. 13:14:34 Rhythm: sinus rhythm 13:14:35 Full Disclosure recording started 13:15:13 Final Timeout: patient, procedure, and site verified with staff and physician. All members of the team are in agreement. 13:15:13 --------ALL STOP TIME OUT------ 13:15:13 Physician arrived 13:15:15 Right groin site verified by team. 13:15:17 Physical assessment completed. ASA score P 2 - A patient with mild systemic disease as per Jas Oliveros MD. 13:15:20 Sedation plan: IV Moderate Sedation Medication:Versed, Fentanyl 13:15:43 Fentanyl 50 mcg I.V. was administered by Mercedez Chisholm RN; for sedation; 13:15:53 Versed 1 mg I.V. was administered by Mercedez Chisholm RN; for sedation; 13:17:11 Versed 1 mg I.V. was administered by Mercedez Chisholm RN; for sedation; 13:17:14 Fentanyl 50 mcg I.V. was administered by Mercedez Chisholm RN; for sedation; 13:18:04 Zero performed for pressure channel P1 13:18:39 Fentanyl 50 mcg I.V. was administered by Mercedez Chisholm RN; for sedation; 13:18:46 Versed 1 mg I.V. was administered by Mercedez Chisholm RN; for sedation; 13:20:39 Procedure started. 13:20:41 Local anesthetic to right femoral artery with Lidocaine 2% by Jas Oliveros MD.INITIAL ACCESS ONLY 13:20:52 A 5 Fr sheath was inserted into the Right Femoral artery 13:21:13 A MULTIPACK JL 4.0 5Fr catheter was advanced over the wire and used for Procedure. 13:22:09 LCA angiography performed. 13:22:15 Versed 1 mg I.V. was administered by Mercedez Chisholm RN; for sedation; 13:22:20 Fentanyl 50 mcg I.V. was administered by Mercedez Chisholm RN; for sedation; 13:23:12 Catheter exchanged over wire. 13:23:17 A MULTIPACK 3DRC 5Fr catheter was advanced over the wire and used for Procedure. 13:24:11 RCA angiography performed. 13:24:18 Catheter exchanged over wire. 13:24:22 A MULTIPACK Pigtail 5 Fr catheter was advanced over the wire and used for Procedure. 13:24:59 SHEATH 6FR [place] (IHP731) opened to sterile field. 13:24:59 INFLATOR Merit BasixCompak (SA8224) opened to sterile field. 13:25:01 GUIDE 6FR EBU 3.5 catheter ([id number]) opened to sterile field. 13:25:01 WHISPER 300cm guide wire ([id number]) opened to sterile field. 13:25:24 LV hemodynamics recorded. 13:25:55 LV gram done using LORENZANA 13::58 Injector settings: Ml/sec: 10, Volume: 20, 13:26:07 EF : 55 % 13:26:10 Fentanyl 50 mcg I.V. was administered by Mercedez Chisholm RN; for sedation; 13:26:16 Versed 1 mg I.V. was administered by Mercedez Chisholm RN; for sedation; 13::22 Catheter removed. 13::29 Sheath upsized to a 6 Fr Short. 13::34 6 Fr ebu 3.5 guide catheter was inserted over the wire 13:28:27 Fentanyl 50 mcg I.V. was administered by Mercedez Chisholm RN; for sedation; 13::33 Versed 1 mg I.V. was administered by Mercedez Chisholm RN; for sedation; 13::13 Fentanyl 50 mcg I.V. was administered by Mercedez Chisholm RN; for sedation; 13::25 Versed 1 mg I.V. was administered by Mercedez Chisholm RN; for sedation; ::45 Heparin Bolus 4000 units I.V. was administered by Mercedez Chisholm RN; for anticoagulation; verified by dr. christiansen 13::59 Integrilin (Bolus 2mg/ml) 7.3ml I.V. was administered by Mercedez Chisholm RN; for antiplatelet therapy; waste 2.7ML 13:32:17 whisper wire advanced. 13:33:34 Wire advanced across lesion. 13:35:05 Inflation Number: 1 A DOROTA OTW 2.5 x 18 stent ([id number]) was prepped and advanced across the Mid LAD. The stent was deployed at 14 PRINCESS for 0:45 (min:sec). ::26 Versed 1 mg I.V. was administered by Mercedez Chisholm RN; for sedation; 13:35:39 Fentanyl 50 mcg I.V. was administered by Mercedez Chisholm RN; for sedation; 13:35:57 Timer 1 started at 1:35 PM, stopped at 1:35 PM, duration 00:00:00 sec. 13:36:12 Inflation number: 2 The stent balloon was then re-inflated across the Mid LAD to 4 PRINCESS for 0:10 (min:sec). 13:36:42 Stent catheter was removed intact over wire. 13:36:44 Guide catheter removed. 13:36:44 Wire removed. 13:36:56 EXOSEAL 6Fr (EX600) opened to sterile field. 13:37:46 IV left forearm D/C'd due to infiltration. 13:37:52 IV started by Marizol Vasquez RN inleft hand with a 22 gauge IV catheter with 0.9% NaCl at O. 13:38:08 Sheath removed intact; hemostasis achieved with Exoseal to the Right Femoral artery. 13:38:10 Procedure ended.(Physican Out) 13:38:30 Fluoroscopy time 03.60 minutes. 13:38:36 Fluoroscopy dose: 568 mGy 13:38:36 Flurop Dose total: 568 13:38:39 Contrast amount:Isovue 300 104ml. 13:38:40 Sharps counted by scrub and verified by R.N. 13:38:43 Insertion/operative site no bleeding no hematoma. 13:38:46 Post-op/insertion site Right Femoral artery dressed using a 4 x 4 and Tegaderm. 13:38:49 Post right femoral artery:stable, soft, clean and dry 13:38:50 Post Procedure Pulses reassessed and unchanged 13:38:52 Post-procedure physical assessment completed. ASA score P 2 - A patient with mild systemic disease as per Jas Oliveros MD. 13:38:54 Post procedure rhythm: unchanged. 13:38:56 Estimated blood loss: 10 ml 13:38:58 Patient needs reinforcement of post procedure teaching. 13:38:58 Post procedure instruction explained to patient.Patient verbalizes understanding. 13:39:13 Procedure type changed to Cath procedure, Diagnostic procedure, LHC, LHC w/Coronaries, PCI procedure, Coronary Stent, Coronary Stent Initial, Miscellaneous Procedures, Moderate Sedation up to 15 minutes 13:40:42 Procedure and supply charges have been captured, reviewed, submitted and are correct. 13:40:48 Procedure Complication : No complications 13:40:50 See physician's report for complete and final results. 13:40:50 Vital chart was stopped 13:40:52 Report given to Pre/Post Procedure Room. 13:40:55 Patient transfered to Pre/Post Procedure Room with Stretcher. 13:40:56 Full Disclosure recording stopped 13:40:56 Procedure ended. 13:46:34 Plavix 600 mg P.O. was administered by Mercedez Chisholm RN; for antiplatelet therapy; 13:48:16 End room use (Document Last) Intervention Summary Intervention Notes Time ActionType Lesion and Equipment Action# Pressure Duration Attributes Used 13:35:05 Place stent Mid LAD DOROTA OTW 2.5 1 14 00:45 x 18 stent ([id number]) 13:36:12 Reinflate Mid LAD DOROTA OTW 2.5 2 4 00:10 stent x 18 stent balloon ([id number]) Device Usage Item Name Manufacture Quantity Catalog Hospital Part Current Minim al Lot# / Number Charge Number Stock Stock Serial# Code ACIST Syringe Acist 1 79883 981984 998058 449790 20 (87078) Medical Systems Inc ACIST Hand Acist 1 16091 646844 569486 331221 5 Control Medical (72099) Systems Inc ACIST Acist 1 93815 802598 028255 195888 5 Manifold Medical (28304) Systems Inc Medline Cath Cardinal 1 [id number] 961489 93350 722671 5 Graph Story ([id number]) Bag Decanter Microtek 1 2001S 219545 22996 336699 5 (2001S) Medical Inc. Tegaderm 4 x 3M 1 1626W 732442 525559 802878 5 4 (1626W) DIAGNOSTIC Cardinal 1 QZ0692 437393 42177 897463 30 Multipack 5Fr Health catheter set (PW0560) SHEATH 5FR Terumo 1 WJS411 459457 091403 842382 40 [place] (SMK555) DIAGNOSTIC St Rojelio 1 094187 606685 995159 144221 30 WIRE .035 260cm J wire (673741) PERCUTANEOUS Cook Medical 1 F81433 658466 463052 5 ENTRY 19GA needle MULTIPACK JL Cardinal 1 356429 5 4.0 5Fr Health catheter MULTIPACK Cardinal 1 209631 5 3DRC 5Fr Health catheter MULTIPACK Cardinal 1 168021 5 Pigtail 5 Fr Health catheter INFLATOR [facility] 1 AO6631 196874 330256 077837 15 [facility] Medical BasixCompak (AB2376) SHEATH 6FR Terumo 1 VYK528 837445 398545 235187 40 [place] (MZY722) WHISPER 300cm Olivarez 1 [id number] 674603 361415 425409 5 guide wire Vascular ([id number]) GUIDE 6FR EBU Medtronic 1 [id number] 683379 95491 402026 3 3.5 catheter (HI3JYR11) DOROTA OTW 2.5 Medtronic 1 [id number] 617251 66407 457423 5 [id number] x 18 stent ([id number]) EXOSEAL 6Fr Cardinal 1 EX600 602250 908155 609334 10 (EX600) Health Signature Audit [place] Stage Time Signature Unsigned Intra-Procedure 08/15/2017 Rico Mason RT(R) 1:42:19 PM RT(R) 08/15/2017 1:45:11 PM Intra-Procedure 08/15/2017 Rico Mason 1:48:37 PM RT(R) Signatures Monitor : Rico Mason RT Signature : Date : Time : [address] [place] [address]
[~2017-08-15 10:41] MED LIST changes: +CARAFATE1 G/10 ML PO; +CATAPRES0.1 MG PO; +CYCLOBENZAPRINE10 MG PO; +LOPRESSOR25 MG PO; +NEXIUM40 MG PO; +OXYCONTIN10 MG; +ZOLOFT50 MG PO
[2017-08-15] MEDS ORDERED: ZOFRAN8 MG PO (10:57)
[2017-08-15] MEDS ORDERED: LIPITOR10 MG PO (10:58)
[2017-08-15] MEDS ORDERED: PRINIVIL20 MG PO (10:58)
[2017-08-15] MEDS ORDERED: INDERAL10 MG PO (11:00)
[2017-08-15] MEDS ORDERED: NEXIUM40 MG PO (11:01)
[2017-08-15] MEDS ORDERED: CELEXA10 MG PO (11:01)
[2017-08-15] MEDS ORDERED: HCTZ25 MG PO (11:02)
[2017-08-15] MEDS ORDERED: TIMOPTIC 0.25% O5 M1 EACH EYE (11:07)
[2017-08-15 11:15] VITALS: BP 141/87; Ht 162.6 cm; Wt 80.5 kg
[2017-08-15 11:36] LABS: ANION GAP 16.8 mmol/L (8-16); CALCIUM 9.7 mg/dL (8.5-10.1); CARBON DIOXIDE 23.1 mmol/L (21.0-32.0); CREATININE - SERUM 1.5 mg/dL (0.6-1.3); POTASSIUM - SERUM 3.9 mmol/L (3.5-5.1)
[2017-08-15 11:42] LABS: BASOPHILS 0.3 % (0-2); EOSINOPHILS 0.7 % (0-7); HEMATOCRIT 43.2 % (36.0-48.0); HEMOGLOBIN 14.8 g/dL (12-16); IMMATURE GRANULOCYTES 0.1 % (0-5); LYMPHOCYTES 38.4 % (15-50); MCH 32.5 pg (26.0-34.0); MCHC 34.3 g/dL (31.0-37.0); MCV 94.7 fL (80.0-100.0); MEAN PLATELET VOLUME 9.3 fL (7.4-10.4); MONOCYTES 4.6 % (2-11); NEUTROPHILS 55.9 % (40-80); RBC 4.56 10x6/uL (4.00-5.40)
[2017-08-15 11:48] LABS: PLATELET COUNT 352 10x3/uL (130-400)
[2017-08-15] MEDS ORDERED: BAYER CHEWABLE81 MG PO (13:58)
[2017-08-15] MEDS ORDERED: PLAVIX75 MG PO (13:58)
== END 2017-08-15 18:05 | disposition home or self-care (01) ==
LOC: D.CATH 10:41
PROVIDERS: Internal Medicine Interventional Cardiology
DX: I20.9 Angina pectoris, unspecified (principal); R94.31 Abnormal electrocardiogram [ECG] [EKG]; I10 Essential (primary) hypertension; Z01.812 Encounter for preprocedural laboratory examination
CPT/HCPCS: 93458; C9600

== ENCOUNTER 2017-08-27 11:08 | Outpatient (CLI) | payer MEDICARE ==
--- NOTE | ~2017-08-27 | OP ---
PATIENT NAME: YAJAIRA SMITH MEDICAL RECORD: [id number] :48 LOCATION:D.CAT ADMISSION DATE: SURGEON: SHABBIR QUEZADA MD DATE OF OPERATION: 08/27/2017 DESCRIPTION OF PROCEDURE: After a 6-Mongolian sheath was placed in right femoral artery, an EBU guide catheter provided good guide support followed by 300 cm Whisper wire placed across the occluded 80% circumflex to the distal portion of this vessel. Stent deployed was a 3.0 x 15 mm [place] stent up to 14 atmospheres. This showed nice step up and step down distally. GAVI flow was 3 throughout the procedure. The patient was previously on Plavix, heparin loaded in the lab. Sheath was closed with ExoSeal device. TRANSINT:[id number] Voice Confirmation ID: [id number] DOCUMENT ID: [id number] SHABBIR QUEZADA MD at 0824 CC: [id number] DICTATION DATE: 08/27/17 1249 NURSING PROFESSOR: 08/27/17 1258 DEP CLI 08/27/17 [address] [place] [address]
--- NOTE | ~2017-08-27 | HEMODYNAMI ---
PATIENT:YAJAIRA SMITH MEDICAL RECORD: [id number] : 48 LOCATION:[facility] ADMISSION DATE: 08/27/17 Generatedon:08/27/201712:44 Patient name: YAJAIRA SMITH Patient #: [id number] SSN : : 1950 Date of study: 08/27/2017 Page: Of Hemodynamic Procedure Report Patient Data Patient Demographics Procedure consent was obtained First Name: YAJAIRA Gender: Female Last Name: LUIS : 1950 [facility] Initial: E Age: 67 year(s) Patient #: [id number] Race: Unknown Additional ID: [id number] Contact details Address: [address] [place] [address] State: [place] City: [place] Zip code: [address] Past Medical History Allergies: No known allergies Admission Admission Data Admission Date: 08/27/2017 Admission Time: 11:08 Lab Results Lab Result Date: 08/27/2017 Lab Result Time: 0:00 Biochemistry Name Units Result Min Max BUN mg/dl 12 --(-*--)-- 7 18 Creatinine mg/dl 1.1 --(--*-)-- 0.6 1.3 CBC Name Units Result Min Max Hemoglobin g/dl 12.8 -*(----)-- 13.5 17.5 Procedure Procedure Types Cath Procedure PCI Procedure Coronary Stent Coronary Stent Initial Procedure Description Procedure Date Procedure Date: 08/27/2017 Procedure Start Time: 12:28 Procedure End Time: 12:37 Procedure Staff Name Function Jas Espinal MD Performing Physician Adelia Lam RT Monitor Marya Nevarez RT Scrub Marizol Vasquez RN Nurse Procedure Data Cath Procedure Fluoroscopy Diagnostic fluoroscopy Total fluoroscopy Time: 1.5 time: 1.5 min min Diagnostic fluoroscopy Total fluoroscopy dose: 230 dose: 230 mGy mGy Contrast Material Contrast Material Type Amount (ml) Isovue 300 27 Entry Location Entry Primary Successful Side Size Upsize Upsize Entry Closure Succes sful Closure Location (Fr) 1 (Fr) 2 (Fr) Remarks Device Remarks Femoral Right 6 Fr Exoseal artery Short Estimated blood loss: 5 ml Procedure Complications No complications Procedure Medications Medication Administration Route Dosage Oxygen NC 2 l/min Lidocaine 2% added to field 20 Heparin Flush Bag added to field 2 bags (1000units/500ml NS) 0.9% NaCl I.V. 100 ml/hr Versed I.V. 2 mg Fentanyl I.V. 100 mcg Heparin Bolus I.V. 4000 units Versed I.V. 2 mg Fentanyl I.V. 50 mcg Versed I.V. 2 mg Fentanyl I.V. 50 mcg Hemodynamics Rest HGB: 12.8 (g/dl) Heart Rate: 87 (bpm) Snapshots Pre Cath Intra NCS Post Cath Vital Signs Time Heart Resp SPO2 etCO2 NIBP (mmHg) Rhythm Pain Sedation Rate (ipm) (%) (mmHg) Status Level (bpm) 12:13:54 91 16 98 6.6 140/77(107) NSR 0 (11) 10(A) , No pain 12:18:10 90 18 100 22.2 136/75(102) NSR 0 (11) 10(A) , No pain 12:22:20 84 15 99 34.1 134/82(115) NSR 0 (11) 10(A) , No pain 12:26:34 88 16 95 0 127/69(104) NSR 0 (11) 10(A) , No pain 12:30:46 83 15 95 0 114/72(101) NSR 0 (11) 10(A) , No pain 12:34:51 86 17 96 0 110/82(98) NSR 0 (11) 10(A) , No pain Medications Time Medication Route Dose Verified Delivered Reason Notes Effectiveness by by 12:14:57 Oxygen NC 2 Jas Fontana used for l/min [facility] Kevin alston MD 12:15:05 Lidocaine 2% added 20ml Jas Mark for local to vial [facility] anesthetic field MD STATON 12:15:11 Heparin Flush added 2 Jas Mark used for Bag to bags [facility] John procedure (1000units/500ml field MD STATON NS) 12:15:20 0.9% NaCl I.V. 100 Jas Fontana Per physician ml/hr St Kevin Vasquez RN, MD 12:23:48 Versed I.V. 2 mg Jas Buffie for sedation St Kevin Vasquez RN, MD 12:23:53 Fentanyl I.V. 100 Jas Buffie for sedation mcg [facility] Kevin Vasquez RN, MD 12:27:29 Versed I.V. 2 mg Jas Buffie for sedation St Kevin Vasquez RN, MD 12:27:33 Fentanyl I.V. 50 Jas Buffie for sedation mcg [facility] Kevin Vasquez RN, MD 12:30:21 Heparin Bolus I.V. 4000 Jas Buffie for verifi ed units St Kevin Vasquez RN anticoagulation with dr MD christiansen 12:32:15 Fentanyl I.V. 50 Jas Buffie for sedation mcg [facility] Kevin Vasquez RN, MD 12:32:48 Versed I.V. 2 mg Jas Buffie for sedation St Kevin Vasquez RN, MD Procedure Log Time Note 11:56:25 Time tracking: Regular hours 11:56:28 Plan of Care:Hemodynamics will remain stable., Cardiac rhythm will remain stable., Comfort level will be maintained., Respiratory function will remain adequate., Patient/ family verbilizes understanding of procedure., Procedure tolerated without complication., Recovers from procedure without complications.. 11:56:30 Signed procedure consent form obtained from patient. 11:56:35 Adelia Lam RT(R) sent for patient. Start room use. 11:56:47 H&P Date Dictated: 08/10/2017 Within 30 days and on chart., H&P Addendum completed by physician on day of procedure. (MUST COMPLETE FOR ALL OUTPATIENTS). 11:56:57 Patient allergic to No known allergies 12:02:57 Patient received from Pre/Post Procedure Room to CCL 2 Alert and oriented. Tansferred to table in Supine position. 12:02:58 Warm blankets applied, and murtaza hugger turned on for patient comfort. 12:02:58 Correct patient and procedure confirmed by team. 12:03:00 ECG and BP/O2 sat monitors applied to patient. 12:12:49 Vital chart was started 12:12:50 Baseline sample Acquired. 12:12:53 Rhythm: sinus rhythm 12:12:57 Full Disclosure recording started 12:12:57 Pre-procedure instructions explained to patient. 12:12:58 Pre-op teaching completed and patient verbalized understanding. 12:13:00 Family in patients room. 12:13:01 Patient NPO since Midnight. 12:13:03 Is the patient allergic to Iodine/contrast media? No. 12:13:04 Was the patient premedicated? No 12:13:05 Is patient on blood thinner?Yes 12:13:07 ACC The patient was administered the following blood thiners within the last 24 hours: ACCPlavix 12:13:10 Patient diabetic? No. 12:13:12 Previous problem with sedation/anesthesia? No ' 12:13:14 Snore? Yes 12:13:15 Sleep apnea? No 12:13:15 Deviated septum? No 12:13:16 Opens mouth fully? Yes 12:13:17 Sticks out tongue? Yes 12:13:18 Airway obstruction? No ? 12:13:22 Dentures? Yes in tight 12:13:28 Pre procedure: right dorsailis pedis pulse 2+ Normal; easily identifiable; not easily obliterated 12:13:30 Pre procedure: left dorsailis pedis pulse 2+ Normal; easily identifiable; not easily obliterated 12:13:32 Patient pain scale 0/10 ?. 12:13:43 IV patent on arrival in left forearm with 0.9% NaCl at [facility]. 12:13:46 Lab results completed and on chart. 12:13:50 Right groin area was prepped with chlora-prep and draped in sterile fashion 12:13:50 Alarms reviewed by R. N. 12:13:51 Sharps counted by scrub and verified by R.N. 12:14:57 Oxygen 2 l/min NC was administered by Marizol Vasquez RN; used for procedure; 12:15:05 Lidocaine 2% 20ml vial added to field was administered by Jas Espinal MD; for local anesthetic; 12:15:11 Heparin Flush Bag (1000units/500ml NS) 2 bags added to field was administered by Jas Espinal MD; used for procedure; 12:15:20 0.9% NaCl 100 ml/hr I.V. was administered by Marizol Vasquez RN; Per physician; 12:16:29 Lab Result : Creatinine 1.1 mg/dl 12:16:29 Lab Result : BUN 12 mg/dl 12:16:29 Lab Result : Hemoglobin 12.8 g/dl 12:18:08 Use device set Femoral Dx 12:18:10 ACIST Syringe (46915) opened to sterile field. 12:18:10 Bag Decanter (2001S) opened to sterile field. 12:18:12 Medline Cath Pack ([id number]) opened to sterile field. 12:18:13 DIAGNOSTIC WIRE .035 260cm J wire (648771) opened to sterile field. 12:18:15 ACIST Hand Control (04037) opened to sterile field. 12:18:16 ACIST Manifold (08524) opened to sterile field. 12:18:18 Tegaderm 4 x 4 (1626W) opened to sterile field. 12:18:33 WHISPER 300cm guide wire ([id number]) opened to sterile field. 12:18:34 INFLATOR Merit BasixCompak (ZM3177) opened to sterile field. 12:18:34 SHEATH 6FR [place] (HGC668) opened to sterile field. 12:20:15 Zero performed for pressure channel P1 12::41 Physician arrived 12::41 --------ALL STOP TIME OUT------ 12::42 Final Timeout: patient, procedure, and site verified with staff and physician. All members of the team are in agreement. 12:22:44 Right groin site verified by team. 12:22:46 Physical assessment completed. ASA score P 2 - A patient with mild systemic disease as per Jas Espinal MD. 12:22:49 Sedation plan: IV Moderate Sedation Medication:Versed, Fentanyl 12:23:48 Versed 2 mg I.V. was administered by Marizol Vasquez RN; for sedation; 12:23:53 Fentanyl 100 mcg I.V. was administered by Marizol Vasquez RN; for sedation; 12:26:16 Procedure started. 12:27:29 Versed 2 mg I.V. was administered by Marizol Vasquez RN; for sedation; 12:27:33 Fentanyl 50 mcg I.V. was administered by Marizol Vasquez RN; for sedation; 12:28:39 Local anesthetic to right femoral artery with Lidocaine 2% by Jas Espinal MD.INITIAL ACCESS ONLY 12:28:51 A 6 Fr Short sheath was inserted into the Right Femoral artery 12:29:10 GUIDE 6FR EBU 3.5 catheter ([id number]) opened to sterile field. 12:29:19 6 Fr ebu 3.5 guide catheter was inserted over the wire 12:30:21 Heparin Bolus 4000 units I.V. was administered by Marizol Vasquez RN; for anticoagulation; verified with dr christiansen 12:30:35 LCA angiography performed. 12:30:39 Injector settings: Ml/sec: 3, Volume: 6, 12:31:09 whisper wire advanced. 12:31:57 Wire advanced across lesion. 12:32:15 Fentanyl 50 mcg I.V. was administered by Marizol Vasquez RN; for sedation; 12:32:48 Versed 2 mg I.V. was administered by Marizol Vasquez RN; for sedation; 12:34:29 Inflation Number: 1 A DOROTA OTW 3.0 x 15 stent ([id number]) was prepped and advanced across the 1st Ob Dixie. The stent was deployed at 12 PRINCESS for 0:30 (min:sec). 12:35:24 Stent catheter was removed intact over wire. 12:35:25 Wire removed. 12:35:25 Guide catheter removed. 12:35:31 EXOSEAL 6Fr (EX600) opened to sterile field. 12:35:44 Sheath removed intact; hemostasis achieved with Exoseal to the Right Femoral artery. 12:35:54 Procedure ended.(Physican Out) 12:36:38 Fluoroscopy time 01.50 minutes. 12:36:42 Flurop Dose total: 230 12:36:42 Fluoroscopy dose: 230 mGy 12:36:47 Contrast amount:Isovue 300 27ml. 12:36:48 Sharps counted by scrub and verified by R.N. 12:36:50 Insertion/operative site no bleeding no hematoma. 12:36:54 Post-op/insertion site Right Femoral artery dressed using a 4 x 4 and Tegaderm. 12:36:57 Post right femoral artery:stable 12:36:58 Post Procedure Pulses reassessed and unchanged 12:37:02 Post procedure rhythm: unchanged. 12:37:05 Estimated blood loss: 5 ml 12:37:07 Post procedure instruction explained to patient.Patient verbalizes understanding. 12:37:07 Patient needs reinforcement of post procedure teaching. 12:37:32 Procedure and supply charges have been captured, reviewed, submitted and are correct. 12:37:41 Procedure Complication : No complications 12:37:43 Vital chart was stopped 12:37:44 See physician's report for complete and final results. 12:37:47 Report given to Pre/Post Procedure Room. 12:37:50 Patient transfered to Pre/Post Procedure Room with Stretcher. 12:37:52 Procedure ended. 12:37:52 Full Disclosure recording stopped 12:38:01 ACC-PCI Only Patient was given prescriptions, or instructed by Jas Espinal MD to start/continue the following medications upon discharge: Plavix 12:38:06 End room use (Document Last) Intervention Summary Intervention Notes Time ActionType Lesion and Equipment Action# Pressure Duration Attributes Used 12:34:29 Place stent 1st Ob Dixie DOROTA OTW 3.0 1 12 00:30 x 15 stent ([id number]) Device Usage Item Name Manufacture Quantity Catalog Hospital Part Current Minim al Lot# / Number Charge Number Stock Stock Serial# Code ACIST Syringe Acist 1 [id number] 694293 950369 [id number] 20 (56853) Medical Systems Inc Bag Decanter Microtek 1 2001S 944676 89782 841048 5 (2001S) Medical Inc. Medline Cath Cardinal 1 [id number] 517343 71624 068858 5 [facility] ([id number]) DIAGNOSTIC St Rojelio 1 080556 411492 589793 528620 30 WIRE .035 260cm J wire (508912) ACIST Hand Acist 1 00385 526754 657004 269565 5 Control Medical (45380) Systems Inc ACIST Acist 1 24174 612715 323344 162584 5 Manifold Medical (54906) Systems Inc Tegaderm 4 x 3M 1 1626W 228617 315414 359303 5 4 (1626W) WHISPER 300cm Olivarez 1 [id number] 093051 372872 454538 5 guide wire Vascular ([id number]) INFLATOR Merit 1 [id number] 649184 553638 038930 15 [employer] Medical BasixCompak ([id number]) SHEATH 6FR Terumo 1 QBS950 381627 417140 641593 40 [place] (KAM250) GUIDE 6FR EBU Medtronic 1 [id number] 782883 26056 794006 3 3.5 catheter ([id number]) DOROTA OTW 3.0 Medtronic 1 [id number] 154115 580865 077529 5 [id number] x 15 stent ([id number]) EXOSEAL 6Fr Cardinal 1 EX600 327348 979376 471125 10 (EX600) Health Signature Audit [place] Stage Time Signature Unsigned Intra-Procedure 08/27/2017 Adelia Lam 12:44:21 PM RT(R) Signatures Monitor : Adelia Lam RT Signature : Date : Time : [id number] [place] [address]
[~2017-08-27 11:08] MED LIST changes: +BAYER CHEWABLE81 MG PO; +CELEXA10 MG PO; +HCTZ25 MG PO; +INDERAL10 MG PO; +LIPITOR10 MG PO; +PLAVIX75 MG PO; +TIMOPTIC 0.25% O5 M1 EACH EYE; +ZOFRAN8 MG PO
[2017-08-27 11:33] VITALS: BP 144/85; BMI 29.6
[2017-08-27 11:44] LABS: BASOPHILS 0.4 % (0-2); EOSINOPHILS 1.5 % (0-7); HEMATOCRIT 37.6 % (36.0-48.0); HEMOGLOBIN 12.8 g/dL (12-16); IMMATURE GRANULOCYTES 0.2 % (0-5); LYMPHOCYTES 38.3 % (15-50); MCH 32.1 pg (26.0-34.0); MCV 94.2 fL (80.0-100.0); MEAN PLATELET VOLUME 8.7 fL (7.4-10.4); MONOCYTES 6.7 % (2-11); NEUTROPHILS 52.9 % (40-80); RBC 3.99 10x6/uL (4.00-5.40); RDW 13.3 % (11.5-14.5); WBC 5.4 10x3/uL (4.8-10.8)
[2017-08-27 11:46] LABS: PLATELET COUNT 262 10x3/uL (130-400)
[2017-08-27 12:00] LABS: CALCIUM 9.3 mg/dL (8.5-10.1); CARBON DIOXIDE 21.3 mmol/L (21.0-32.0); CREATININE - SERUM 1.1 mg/dL (0.6-1.3); POTASSIUM - SERUM 4.3 mmol/L (3.5-5.1)
== END 2017-08-27 16:45 | disposition home or self-care (01) ==
LOC: D.CATH 11:08
PROVIDERS: Internal Medicine Interventional Cardiology
DX: I25.119 Atherosclerotic heart disease of native coronary artery with unspecified angina pectoris (principal); I10 Essential (primary) hypertension; R94.31 Abnormal electrocardiogram [ECG] [EKG]; Z01.812 Encounter for preprocedural laboratory examination

== ENCOUNTER → 2017-12-12 09:39 | Outpatient (CLI) | payer MEDICARE | END | disposition home or self-care (01) | LOC: D.US 09:39 | DX: I12.9 Hypertensive chronic kidney disease with stage 1 through stage 4 chronic kidney disease, or unspecified chronic kidney disease (principal); N18.9 Chronic kidney disease, unspecified; Z68.30 Body mass index [BMI] 30.0-30.9, adult ==

== ENCOUNTER 2018-01-10 10:09 | Outpatient (CLI) | payer MEDICARE ==
[~2018-01-10] VITALS: Ht 165.1 cm; Wt 80.5 kg
--- NOTE | ~2018-01-10 | HEMODYNAMI ---
PATIENT:YAJAIRA SMITH MEDICAL RECORD: [id number] : 48 LOCATION:[facility] ADMISSION DATE: 01/10/18 Generatedon:01/10/201813:44 Patient name: YAJAIRA SMITH Patient #: [id number] SSN : : 1950 Date of study: 01/10/2018 Page: Of Hemodynamic Procedure Report Patient Data Patient Demographics Procedure consent was obtained First Name: YAJAIRA Gender: Female Last Name: LUIS : 1950 [facility] Initial: E Age: 68 year(s) Patient #: [id number] Race: Unknown Additional ID: [id number] Contact details Address: [address] [place] [address] State: [place] City: [place] Zip code: [address] Past Medical History Allergies: No known allergies Admission Admission Data Admission Date: 01/10/2018 Admission Time: 10:09 Height (in.): 5.4 BSA: 0.3 (m2) Height (cm.): 13.72 BMI: 4050.61 (kg/m2) Weight (lbs.): 168 Weight (kg.): 76.2 Lab Results Lab Result Date: 01/10/2018 Lab Result Time: 0:00 Biochemistry Name Units Result Min Max BUN mg/dl 19 --(----)*- 7 18 Creatinine mg/dl 1.6 --(----)-* 0.6 1.3 CBC Name Units Result Min Max Hemoglobin g/dl 13.4 -*(----)-- 13.5 17.5 Procedure Procedure Types Cath Procedure Diagnostic Procedure [facility] w/Coronaries Sedation Charges Moderate Sedation up to 30 minutes PCI Procedure Coronary Stent Coronary Stent Initial x2 PTCA PTCA Additional Procedure Description Procedure Date Procedure Date: 01/10/2018 Procedure Start Time: 13:10 Procedure End Time: 13:40 Procedure Staff Name Function Jas Espinal MD Performing Physician Marya Nevarez RT Monitor Adelia Lam RT Scrchandan Vasquez RN Nurse Procedure Data Cath Procedure Fluoroscopy Diagnostic fluoroscopy Total fluoroscopy Time: 7.8 time: 7.8 min min Diagnostic fluoroscopy Total fluoroscopy dose: dose: 1054 mGy 1054 mGy Contrast Material Contrast Material Type Amount (ml) Isovue 300 144 Entry Location Entry Primary Successful Side Size Upsize Upsize Entry Closure Succes sful Closure Location (Fr) 1 (Fr) 2 (Fr) Remarks Device Remarks Femoral Right 5 Fr 6 Fr Exoseal artery Short Estimated blood loss: 10 ml Diagnostic catheters Device Type Used For End Catheter Placement MULTIPACK JL 4.0 5Fr Procedure catheter MULTIPACK 3DRC 5Fr Procedure catheter MULTIPACK Pigtail 5 Fr Procedure catheter Procedure Complications No complications Procedure Medications Medication Administration Route Dosage Oxygen NC 2 l/min Lidocaine 2% added to field 20 Heparin Flush Bag added to field 2 bags (1000units/500ml NS) 0.9% NaCl I.V. 100 ml/hr Versed I.V. 2 mg Fentanyl I.V. 100 mcg Versed I.V. 2 mg Fentanyl I.V. 100 mcg Versed I.V. 1 mg Versed I.V. 1 mg Heparin Bolus I.V. 4000 units Brilinta P.O. 180 mg Hemodynamics Rest BSA: 0.3 (m2) HGB: 13.4 (g/dl) O2 Consumption: Estimated: 29.25 (ml/min) O2 Cons umption indexed: Estimated:97.5 (ml/min/m) Heart Rate: 84 (bpm) Pressure Samples Time Site Value (mmHg) Purpose Heart Use Rate(bpm) 13:17 LV 127/5,8 Snapshot 88 Gradients Valve Time Site Site Mean SEP/DFP Peak To Heart Use 1 2 (mmHg) (sec/min) Peak Rate (mmHg) (bpm) Aortic 13:17 LV AO 86 Snapshots Pre Cath Intra NCS Post Cath Vital Signs Time Heart Resp SPO2 etCO2 NIBP (mmHg) Rhythm Pain Sedation Rate (ipm) (%) (mmHg) Status Level (bpm) 12:59:59 83 19 99 25.3 124/82(98) NSR 0 (11) 10(A) , No pain 13:04:12 78 22 100 35 121/77(97) NSR 0 (11) 10(A) , No pain 13:08:24 83 19 100 32.8 116/78(100) NSR 0 (11) 10(A) , No pain 13:12:34 84 16 100 31.3 130/78(103) NSR 0 (11) 10(A) , No pain 13:16:58 85 18 100 30.5 107/42(95) NSR 0 (11) 10(A) , No pain 13:21:04 84 24 96 0 116/73(96) NSR 0 (11) 10(A) , No pain 13:25:12 87 17 96 0 100/68(85) NSR 0 (11) 10(A) , No pain 13:29:14 86 18 95 0 119/78(102) NSR 0 (11) 10(A) , No pain 13:33:25 87 16 95 0 113/67(94) NSR 0 (11) 10(A) , No pain 13:37:33 84 14 98 0 107/73(85) NSR 0 (11) 10(A) , No pain Medications Time Medication Route Dose Verified Delivered Reason Notes Effectiveness by by 13:02:43 Oxygen NC 2 Jas Buffie used for l/min St Kevin Vasquez RN procedure 13:02:49 Lidocaine 2% added 20ml Jas Jas for local to vial [facility] anesthetic field MD STATON 13:02:54 Heparin Flush added 2 Jas Jas used for Bag to bags [facility] procedure (1000units/500ml field MD STATON NS) 13:03:02 0.9% NaCl I.V. 100 Jas Buffie Per physician ml/hr St Kevin Vasquez RN, MD 13:03:10 Versed I.V. 2 mg Jas Buffie for sedation [facility] Kevin Vasquez RN, MD 13:03:16 Fentanyl I.V. 100 Jas Buffie for sedation mcg [facility] Kevin Vasquez RN, MD 13:08:30 Versed I.V. 2 mg Jas Buffie for sedation St Kevin Vasquez RN, MD 13:08:33 Fentanyl I.V. 100 Jas Buffie for sedation mcg [facility] Kevin Vasquez RN, MD 13:12:53 Versed I.V. 1 mg Jas Buffie for sedation St Kevin Vasquez RN, MD 13:18:08 Versed I.V. 1 mg Jas Buffie for sedation St Kevin Vasquez RN, MD 13:19:25 Heparin Bolus I.V. 4000 Jas Buffie for verifi ed units [facility] Kevin Vasquez RN anticoagulation with dr MD christiansen 13:39:49 Brilinta P.O. 180 Jas Font[place] for mg St Kevin Vasquez RN antiplatelet MD therapy Procedure Log Time Note 12:37:50 Signed procedure consent form obtained from patient. 12:37:55 Time tracking: Regular hours (M-F 7:00 - 5:00) 12:37:58 Plan of Care:Hemodynamics will remain stable., Cardiac rhythm will remain stable., Comfort level will be maintained., Respiratory function will remain adequate., Patient/ family verbilizes understanding of procedure., Procedure tolerated without complication., Recovers from procedure without complications.. 12:38:21 H&P Date Dictated: 01/08/2018 Within 30 days and on chart., H&P Addendum completed by physician on day of procedure. (MUST COMPLETE FOR ALL OUTPATIENTS). 12:38:24 Marizol Vasquez RN sent for patient. Start room use. 12:41:29 Patient allergic to No known allergies 12:41:50 Lab Result : BUN 19 mg/dl 12:41:50 Lab Result : Creatinine 1.6 mg/dl 12:41:50 Lab Result : Hemoglobin 13.4 g/dl 12:43:27 Patient Height : 5.4 inches 12:43:32 Patient Weight : 168 lbs 12:48:22 Patient received from Pre/Post Procedure Room to CCL 2 Alert and oriented. Tansferred to table in Supine position. 12:48:26 Warm blankets applied, and murtaza hugger turned on for patient comfort. 12:48:27 Correct patient and procedure confirmed by team. 12:48:29 ECG and BP/O2 sat monitors applied to patient. 12:58:51 Vital chart was started 12:58:52 Baseline sample Acquired. 12:58:56 Rhythm: sinus rhythm 12:58:57 Full Disclosure recording started 12:58:58 Pre-procedure instructions explained to patient. 12:58:58 Pre-op teaching completed and patient verbalized understanding. 12:59:00 Family in patients room. 12:59:02 Patient NPO since Midnight. 12:59:05 Is patient on blood thinner?Yes 12:59:09 ACC The patient was administered the following blood thiners within the last 24 hours: ACCPlavix 12:59:17 Patient diabetic? No. 12:59:21 Patient not . Patient is over age 55. 12:59:26 Previous problem with sedation/anesthesia? No ? 12:59:29 Snore? Yes 12:59:31 Sleep apnea? No 12:59:32 Deviated septum? No 12:59:32 Opens mouth fully? Yes 12:59:33 Sticks out tongue? Yes 12:59:39 Airway obstruction? No ? 12:59:44 Dentures? Yes OUT 12:59:49 Pre procedure: right dorsailis pedis pulse 2+ Normal; easily identifiable; not easily obliterated 12:59:56 Patient pain scale 0/10 ?. 13:00:01 IV patent on arrival in right antecubital with 0.9% NaCl at [facility]. 13:00:03 Lab results completed and on chart. 13:00:08 Right groin area was prepped with chlora-prep and draped in sterile fashion 13:00:09 Alarms reviewed by R. N. 13:00:10 Sharps counted by scrub and verified by R.N. 13:00:16 Use device set Femoral Dx 13:00:18 ACIST Syringe (14300) opened to sterile field. 13:00:19 Bag Decanter (2002S) opened to sterile field. 13:00:20 ACIST Hand Control (29112) opened to sterile field. 13:00:21 ACIST Manifold (04143) opened to sterile field. 13:00:22 Tegaderm 4 x 4 (1626W) opened to sterile field. 13:00:26 Medline Cath Pack ([id number]) opened to sterile field. 13:00:27 DIAGNOSTIC WIRE .035 260cm J wire (029389) opened to sterile field. 13:00:29 DIAGNOSTIC Multipack 5Fr catheter set (GF9221) opened to sterile field. 13:00:30 SHEATH Prelude 5Fr 0.035 (GQQ-1M-44-035) opened to sterile field. 13:01:48 --------ALL STOP TIME OUT------ 13:01:48 Final Timeout: patient, procedure, and site verified with staff and physician. All members of the team are in agreement. 13:01:51 Right groin site verified by team. 13:01:54 Physical assessment completed. ASA score P 2 - A patient with mild systemic disease as per Jas Espinal MD. 13:01:56 Sedation plan: IV Moderate Sedation Medication:Versed, Fentanyl 13:02:43 Oxygen 2 l/min NC was administered by Marizol Vasquez RN; used for procedure; 13:02:49 Lidocaine 2% 20ml vial added to field was administered by Jas Espinal MD; for local anesthetic; 13:02:54 Heparin Flush Bag (1000units/500ml NS) 2 bags added to field was administered by Jas Espinal MD; used for procedure; 13:03:02 0.9% NaCl 100 ml/hr I.V. was administered by Marizol Vasquez RN; Per physician; 13:03:10 Versed 2 mg I.V. was administered by Marizol Vasquez RN; for sedation; 13:03:16 Fentanyl 100 mcg I.V. was administered by Marizol Vasquez RN; for sedation; 13:06:28 Zero performed for pressure channel P1 13:08:30 Versed 2 mg I.V. was administered by Marizol Vasquez RN; for sedation; 13:08:33 Fentanyl 100 mcg I.V. was administered by Marizol Vasquez RN; for sedation; 13:09:32 Procedure started. 13:09:54 Zero performed for pressure channel P1 13:10:01 Zero performed for pressure channel P1 13:10:20 Local anesthetic to right femoral artery with Lidocaine 2% by Jas Espinal MD.INITIAL ACCESS ONLY 13:10:45 A 5 Fr sheath was inserted into the Right Femoral artery 13:11:37 A MULTIPACK JL 4.0 5Fr catheter was advanced over the wire and used for Procedure. 13:12:53 Versed 1 mg I.V. was administered by Marizol Vasquez RN; for sedation; 13:14:22 LCA angiography performed. 13:14:24 Catheter removed. 13:14:33 A MULTIPACK 3DRC 5Fr catheter was advanced over the wire and used for Procedure. 13:15:26 RCA angiography performed. 13:15:28 Catheter removed. 13:15:35 A MULTIPACK Pigtail 5 Fr catheter was advanced over the wire and used for Procedure. 13:16:16 LV gram done using LORENZANA 13:16:22 Injector settings: Ml/sec: 10, Volume: 20, 13:17:06 LV hemodynamics recorded. 13:17:17 EF : 55 % 13:17:22 Catheter removed. 13:17:30 SHEATH 6FR [place] (CPZ013) opened to sterile field. 13:17:36 INFLATOR Merit BasixCompak (JQ1394) opened to sterile field. 13:17:47 GUIDE 6FR EBU 3.5 catheter (CM7VYS81) opened to sterile field. 13:17:52 WHISPER 300cm guide wire ([id number]) opened to sterile field. 13:18:08 Versed 1 mg I.V. was administered by Marizol Vasquez RN; for sedation; 13:18:08 Sheath upsized to a 6 Fr Short. 13:19:02 6 Fr EBU 3.5 guide catheter was inserted over the wire 13:19:25 Heparin Bolus 4000 units I.V. was administered by Marizol Vasquez RN; for anticoagulation; verified with dr christiansen 13:21:47 WHISPER 300 wire advanced. 13:23:50 Wire advanced across lesion. 13:25:03 Place stent Inflation Number: 1 A DOROTA OTW 3.0 x 08 stent ([id number]) was prepped and advanced across the Mid LAD. The stent was deployed at 14 PRINCESS for 0:30 (min:sec). 13:25:42 Inflation number: 2 The stent balloon was then re-inflated across the Mid LAD to 10 PRINCESS for 0:10 (min:sec). 13:25:49 Stent catheter was removed intact over wire. 13:27:33 Wire redirected to CX. 13:27:39 Wire advanced across lesion. 13:28:25 Wire removed. 13:28:32 WHISPER 300cm guide wire ([id number]) opened to sterile field. 13:28:52 WHISPER 300 wire advanced. 13:29:25 Wire advanced across lesion. 13:30:01 Inflation number: 1 The stent balloon was then re-inflated across the 1st Ob Dixie to 12 PRINCESS for 0:10 (min:sec). 13:30:35 Inflation number: 1 The stent balloon was then re-inflated across the Prox CX to 14 PRINCESS for 0:15 (min:sec). 13:31:00 Inflation number: 2 The stent balloon was then re-inflated across the Prox CX to 12 PRINCESS for 0:10 (min:sec). 13:31:24 Inflation number: 3 The stent balloon was then re-inflated across the Prox CX to 10 PRINCESS for 0:10 (min:sec). 13:31:30 Balloon removed over the wire. 13:34:34 Place stent Inflation Number: 4 A DOROTA OTW 3.0 x 12 stent ([id number]) was prepped and advanced across the Prox CX. The stent was deployed at 12 PRINCESS for 0:30 (min:sec). 13:35:00 Stent catheter was removed intact over wire. 13:35:00 Wire removed. 13:35:01 Guide catheter removed. 13:35:50 EXOSEAL 6Fr (EX600) opened to sterile field. 13:35:59 Sheath removed intact; hemostasis achieved with Exoseal to the Right Femoral artery. 13:36:01 Procedure ended.(Physican Out) 13:36:46 Fluoroscopy time 07.80 minutes. 13:36:50 Fluoroscopy dose: 1054 mGy 13:36:50 Flurop Dose total: 1054 13:36:54 Contrast amount:Isovue 300 144ml. 13:36:56 Sharps counted by scrub and verified by R.N. 13:36:59 Post-op/insertion site Right Femoral artery dressed using a 4 x 4 and Tegaderm. 13:37:04 Post right femoral artery:stable, soft, clean and dry 13:38:36 Post-procedure physical assessment completed. ASA score P 2 - A patient with mild systemic disease as per Jas Espinal MD. 13:38:40 Post procedure rhythm: unchanged. 13:38:47 Estimated blood loss: 10 ml 13:38:48 Post procedure instruction explained to patient.Patient verbalizes understanding. 13:38:49 Patient needs reinforcement of post procedure teaching. 13:39:08 Procedure type changed to Cath procedure, Diagnostic procedure, LHC, LHC w/Coronaries, Sedation Charges, Moderate Sedation up to 30 minutes, PCI procedure, Coronary Stent, Coronary Stent Initial x2, PTCA, PTCA Additional 13:39:49 Brilinta 180 mg P.O. was administered by Marizol Vasquez RN; for antiplatelet therapy; 13:39:54 Procedure and supply charges have been captured, reviewed, submitted and are correct. 13:39:57 Procedure Complication : No complications 13:40:00 Vital chart was stopped 13:40:02 See physician's report for complete and final results. 13:40:03 Report given to Pre/Post Procedure Room. 13:40:05 Patient transfered to Pre/Post Procedure Room with Bed. 13:40:07 Procedure ended. 13:40:07 Full Disclosure recording stopped 13:40:13 End room use (Document Last) Intervention Summary Intervention Notes Time ActionType Lesion and Equipment Action# Pressure Duration Attributes Used 13:25:03 Place stent Mid LAD DOROTA OTW 3.0 1 14 00:30 x 08 stent ([id number]) 13:25:42 Reinflate Mid LAD DOROTA OTW 3.0 2 10 00:10 stent x 08 stent balloon ([id number]) 13:30:01 Reinflate 1st Ob Dixie DOROTA OTW 3.0 1 12 00:10 stent x 08 stent balloon ([id number]) 13:30:35 Reinflate Prox CX DOROTA OTW 3.0 1 14 00:15 stent x 08 stent balloon ([id number]) 13:31:00 Reinflate Prox CX DOROTA OTW 3.0 2 12 00:10 stent x 08 stent balloon ([id number]) 13:31:24 Reinflate Prox CX DOROTA OTW 3.0 3 10 00:10 stent x 08 stent balloon ([id number]) 13:34:34 Place stent Prox CX DOROTA OTW 3.0 4 12 00:30 x 12 stent ([id number]) Device Usage Item Name Manufacture Quantity Catalog Number Hospital Part Current Minimal Lot# / Charge Number Stock Stock Serial# Code ACIST Syringe Acist 1 65296 903858 904090 585002 20 (68797) [employer] Bag Decanter Microtek 1 2001S 658766 00899 939847 5 (2001S) Medical Inc. ACIST Hand Acist 1 97662 032896 132494 285481 5 Control (95883) [employer] Inc ACIST Manifold Acist 1 90519 545114 237803 146117 5 (57337) [employer] Inc Tegaderm 4 x 4 3M 1 1626W 533823 871079 302264 5 (1626W) Medline Cath Cardinal 1 [id number] 123482 69241 281723 5 Zeto [facility] ([id number]) DIAGNOSTIC WIRE St Rojelio 1 343838 514246 147068 406259 30 .035 260cm J wire (121110) DIAGNOSTIC Cardinal 1 FX7686 049938 27523 733413 30 Multipack 5Fr Health catheter set (UR4908) SHEATH Prelude Merit 1 RLD-6V-58-035 655486 300536 902188 5 5Fr 0.035 Medical (UVC-2D-54-035) MULTIPACK JL Cardinal 1 393781 5 4.0 5Fr Health catheter MULTIPACK 3DRC Cardinal 1 145593 5 5Fr catheter Health MULTIPACK Cardinal 1 098077 5 Pigtail 5 Fr Health catheter SHEATH 6FR Terumo 1 QTF854 132978 559034 797602 40 [place] (WOF243) INFLATOR Merit Merit 1 HR3716 734270 414809 379625 15 BasixCompak Medical (CG0845) GUIDE 6FR EBU Medtronic 1 [id number] 705844 70871 405310 3 3.5 catheter (KG6PIT06) WHISPER 300cm Olivarez 2 [id number] 729890 919782 089918 5 guide wire Vascular ([id number]) DOROTA OTW 3.0 x Medtronic 1 [id number] 997564 0547068 513184 5 [id number] 08 stent ([id number]) DOROTA OTW 3.0 x Medtronic 1 [id number] 585453 422816 266870 5 [id number] 12 stent ([id number]) EXOSEAL 6Fr Cardinal 1 EX600 388005 046130 173301 10 (EX600) Health Signature Audit [place] Stage Time Signature Unsigned Intra-Procedure 01/10/2018 Marya Nevarez 1:44:14 PM RT(R) Signatures Monitor : Marya Nevarez Signature : RT Date : Time : [facility] [address] [place] [address]
--- NOTE | ~2018-01-10 | OP ---
PATIENT NAME: YAJAIRA SMITH MEDICAL RECORD: [id number] :[birth year] LOCATION:D.CAT ADMISSION DATE: SURGEON: SHABBIR QUEZADA MD DATE OF OPERATION: 01/10/2018 PROCEDURE: Left heart catheterization, selective coronary angiography, right femoral artery approach. CATHETERS: A 5-New Zealander sheath, 5/4 left and right Russ, 5/4 pig. The procedure was well tolerated. The patient was returned to mckeon, sheath removed. Adequate hemostasis and ExoSeal was placed. FINDINGS: Left ventriculography in the 30-degree LORENZANA view. Normal wall motion, normal systolic function. CORONARY ANATOMY: LEFT MAIN: Left main is free of disease. LAD: The LAD has end stent restenosis in its proximal portion with the stent itself showing no restenosis. CIRCUMFLEX: Left dominant system. This has a proximal end and distal end restenosis in the true circumflex itself and in the distal portion of the OM. RIGHT CORONARY ARTERY: Rudimentary with free of disease. PLAN: Intervention LAD and circumflex momentarily. DESCRIPTION OF PROCEDURE: A 5-New Zealander was exchanged for a 6-[place]ander sheath. EBU 3.5 guiding catheter provided good catheter support. The 80% end stent restenosis of the LAD was addressed with a 3.0 x 8 mm Resolute drug-eluting stent to 12 atmospheres. Next, the wire was withdrawn and then placed into the OM. The OM was dilated with the indwelling 3.0 stent balloon up to 14 atmospheres. Finally, the circumflex was addressed with a 3.0 x 12, again Resolute drug-eluting stent at 14 atmospheres. Final angiography shows excellent resolution of 80% end stent restenosis to LAD, 80% end stent proximal and distal in the OM and circumflex. No significant residual. GAVI flow was 3 throughout the procedure. Sheath was closed with ExoSeal device. TRANSINT:[id number] Voice Confirmation ID: [id number] DOCUMENT ID: [id number] SHABBIR QUEZADA MD at 0816 CC: [id number] DICTATION DATE: 01/10/18 1346 CROP GRAIN OR LIVESTOCK FARM MANAGER: 01/10/18 1452 DEP CLI 01/10/18 [facility] [address] [place] [address]
[2018-01-10 11:02] VITALS: BP 187/64; Ht 165.1 cm; Wt 80.5 kg
[2018-01-10 11:02] LABS: BASOPHILS 0.5 % (0-2); EOSINOPHILS 1.7 % (0-7); HEMATOCRIT 39.6 % (36.0-48.0); HEMOGLOBIN 13.4 g/dL (12-16); IMMATURE GRANULOCYTES 0.2 % (0-5); LYMPHOCYTES 41.1 % (15-50); MCH 31.9 pg (26.0-34.0); MCHC 33.8 g/dL (31.0-37.0); MCV 94.3 fL (80.0-100.0); MEAN PLATELET VOLUME 8.7 fL (7.4-10.4); MONOCYTES 4.9 % (2-11); NEUTROPHILS 51.6 % (40-80); PLATELET COUNT 283 10x3/uL (130-400); RDW 12.8 % (11.5-14.5); WBC 6.4 10x3/uL (4.8-10.8)
[2018-01-10 11:15] LABS: ANION GAP 9.4 mmol/L (8-16); CARBON DIOXIDE 29.4 mmol/L (21.0-32.0); CREATININE - SERUM 1.6 mg/dL (0.6-1.3); POTASSIUM - SERUM 3.8 mmol/L (3.5-5.1)
== END 2018-01-10 17:52 | disposition home or self-care (01) ==
LOC: D.CATH 10:09
PROVIDERS: Internal Medicine Interventional Cardiology
DX: I25.119 Atherosclerotic heart disease of native coronary artery with unspecified angina pectoris (principal); I10 Essential (primary) hypertension; Z01.812 Encounter for preprocedural laboratory examination
CPT/HCPCS: 93458; C9600 ×2

== ENCOUNTER → 2018-01-30 10:15 | Outpatient (CLI) | payer MEDICARE ==
[2018-01-10 11:02] VITALS: BMI 29.5
== END | disposition home or self-care (01) ==
LOC: D.CT 10:15
DX: N20.0 Calculus of kidney (principal)

== ENCOUNTER 2018-04-01 10:02 | Observation (INO) | payer MEDICARE ==
[~2018-04-01] VITALS: Ht 165.1 cm; Wt 80.0 kg
--- NOTE | ~2018-04-01 | HEMODYNAMI ---
PATIENT:YAJAIRA SMITH MEDICAL RECORD: [id number] : 48 LOCATION:[facility] [place].[address] [facility] [id number] ADMISSION DATE: 04/01/18 Generatedon:04/02/201816:52 Patient name: YAJAIRA SMITH Patient #: [id number] SSN : : 1950 Date of study: 04/02/2018 Page: Of Hemodynamic Procedure Report Patient Data Patient Demographics Procedure consent was obtained First Name: YAJAIRA Gender: Female Last Name: LUIS : 1950 Middle Initial: E Age: 68 year(s) Patient #: [id number] Race: Additional ID: [id number] Contact details [address]: [address] [place] [address] State: [place] City: [place] Zip code: [address] Past Medical History Allergies: No known allergies Admission Admission Data Admission Date: 04/01/2018 Admission Time: 12:54 Room #: 2116 Procedure Procedure Types Cath Procedure Diagnostic Procedure [facility] w/Coronaries Sedation Charges Moderate Sedation up to 30 minutes Procedure Description Procedure Date Procedure Date: 04/02/2018 Procedure Start Time: 16:15 Procedure End Time: 16:51 Procedure Staff Name Function Chava Collier MD Performing Physician Bo Sutherland RN Nurse Rico Mason RT Scrub Linh Graham RT Monitor Procedure Data Cath Procedure Fluoroscopy Diagnostic fluoroscopy Total fluoroscopy Time: 2.9 time: 2.9 min min Diagnostic fluoroscopy Total fluoroscopy dose: 666 dose: 666 mGy mGy Contrast Material Contrast Material Type Amount (ml) Isovue 300 85 Entry Location Entry Primary Successful Side Size Upsize Upsize Entry Closure Succes sful Closure Location (Fr) 1 (Fr) 2 (Fr) Remarks Device Remarks Femoral Right 5 Fr Exoseal artery Estimated blood loss: 10 ml Diagnostic catheters Device Type Used For End Catheter Placement MULTIPACK JL 4.0 5Fr Left Coronary catheter Angiography MULTIPACK 3DRC 5Fr Right Coronary catheter Angiography MULTIPACK Pigtail 5 Fr LV Angiography catheter MULTIPACK JL 4.0 5Fr Left Coronary catheter Angiography Procedure Complications No complications Procedure Medications Medication Administration Route Dosage Oxygen etCO2 Nasal cannula 2 l/min Heparin Flush Bag added to field 2 bags (1000units/500ml NS) 0.9% NaCl I.V. 100 ml/hr Fentanyl I.V. 50 mcg Versed I.V. 1 mg Fentanyl I.V. 50 mcg Versed I.V. 1 mg Fentanyl I.V. 50 mcg Versed I.V. 1 mg Fentanyl I.V. 50 mcg Versed I.V. 1 mg Fentanyl I.V. 50 mcg Versed I.V. 1 mg Fentanyl I.V. 50 mcg Versed I.V. 1 mg Fentanyl I.V. 50 mcg Versed I.V. 1 mg Fentanyl I.V. 50 mcg Versed I.V. 1 mg Fentanyl I.V. 50 mcg Versed I.V. 1 mg Fentanyl I.V. 50 mcg Versed I.V. 1 mg Nitroglycerin IC/IA I.C. 100 mcg Brilinta P.O. 90 mg Hemodynamics Rest Heart Rate: 81 (bpm) Pressure Samples Time Site Value (mmHg) Purpose Heart Use Rate(bpm) 16:33 LV 153/-10,12 EDP 96 16:33 AO 137/78(102) Pullback 87 16:33 LV 151/-2,25 Pullback 87 Gradients Valve Time Site 1 Site 2 Mean SEP/DFP Peak To Heart Use (mmHg) (sec/min) Peak Rate (mmHg) (bpm) Aortic 16:33 LV AO 17 20 14 87 151/-2,25 137/78(102) Calculations Valve P-P Mean Valve Index Valve Source Name Gradient Area Flow (cm2) Aortic 14 17 14 17 Snapshots Pre Cath Intra NCS Post Cath Vital Signs Time Heart Resp SPO2 etCO2 NIBP (mmHg) Rhythm Pain Sedation Rate (ipm) (%) (mmHg) Status Level (bpm) 15:17:25 83 16 96 0 127/81(109) NSR 0 (11) 10(A) , No pain 15:22:26 86 17 98 0 122/78(101) NSR 0 (11) 10(A) , No pain 15:26:36 84 16 98 0 115/74(96) NSR 0 (11) 10(A) , No pain 15:30:42 87 17 98 0 121/73(98) NSR 0 (11) 10(A) , No pain 15:34:52 83 17 96 0 116/74(100) NSR 0 (11) 10(A) , No pain 15:39:00 89 16 97 0 119/79(96) NSR 0 (11) 10(A) , No pain 15:43:06 83 16 97 0 118/85(102) NSR 0 (11) 10(A) , No pain 15:47:15 83 17 97 0 113/78(105) NSR 0 (11) 10(A) , No pain 15:51:19 81 16 97 0 113/82(98) NSR 0 (11) 10(A) , No pain 15:55:27 80 16 98 0 123/74(94) NSR 0 (11) 10(A) , No pain 15:59:37 80 17 97 0 119/78(95) NSR 0 (11) 10(A) , No pain 16:03:45 85 16 98 0 130/82(115) NSR 0 (11) 10(A) , No pain 16:07:59 83 17 99 31.9 119/78(109) NSR 0 (11) 10(A) , No pain 16:12:09 87 17 100 24.5 133/77(127) NSR 0 (11) 10(A) , No pain 16:16:16 89 17 100 13.3 123/80(90) NSR 0 (11) 10(A) , No pain 16:20:28 84 16 100 19.3 113/70(89) NSR 0 (11) 10(A) , No pain 16:24:38 81 16 100 22.2 117/70(100) NSR 0 (11) 10(A) , No pain 16:28:46 85 17 98 43.8 125/77(101) NSR 0 (11) 10(A) , No pain 16:32:56 92 17 99 40.8 118/78(110) NSR 0 (11) 10(A) , No pain 16:37:45 103 17 95 14.8 119/95(114) NSR 0 (11) 10(A) , No pain 16:41:51 105 17 95 45.3 107/87(105) NSR 0 (11) 10(A) , No pain 16:46:33 105 17 96 20.8 118/90(116) NSR 0 (11) 10(A) , No pain 16:50:13 103 17 97 37.1 96/71(93) NSR 0 (11) 10(A) , No pain Medications Time Medication Route Dose Verified Delivered Reason Notes E ffectiveness by by 16:07:20 Oxygen etCO2 2 Chava Bo Per Nasal l/min Nando Sutherland RN physician cannula 16:07:30 Heparin Flush added 2 Chava Bo used for Bag to bags Nando Sutherland kiln door builder (1000units/500ml field NS) 16:07:37 0.9% NaCl I.V. 100 Chava Bo Per ml/hr Nando Sutherland RN physician 16:07:44 Fentanyl I.V. 50 Chava Bo for sedation mcg Nando Sutherland RN 16:07:51 Versed I.V. 1 mg Chava Bo for sedation Nando Sutherland RN 16:10:02 Versed I.V. 1 mg Chava Bo for sedation Nando Sutherland RN 16:10:59 Fentanyl I.V. 50 Chava Bo for sedation mcg Nando Sutherland RN 16:16:53 Fentanyl I.V. 50 Chava Bo for sedation mcg Nando Sutherland RN 16:16:56 Versed I.V. 1 mg Chava Bo for sedation Nando Sutherland RN 16:18:28 Fentanyl I.V. 50 Chava Bo for sedation mcg Nando Sutherland RN 16:18:31 Versed I.V. 1 mg Chava Bo for sedation Nando Sutherland RN 16:19:53 Fentanyl I.V. 50 Chava Bo for sedation mcg Nando Sutherland RN 16:19:57 Versed I.V. 1 mg Chava Bo for sedation Nando Sutherland RN 16:22:47 Fentanyl I.V. 50 Chava Bo for sedation mcg Nando Sutherland RN 16:22:50 Versed I.V. 1 mg Chava Bo for sedation Nando Sutherland RN 16:25:39 Fentanyl I.V. 50 Chava Bo for sedation mcg Nando Sutherland RN 16:25:42 Versed I.V. 1 mg Chava Bo for sedation Nando Sutherland RN 16:30:47 Fentanyl I.V. 50 Chava Bo for sedation mcg Nando Sutherland RN 16:30:50 Versed I.V. 1 mg Chava Bo for sedation Nando Sutherland RN 16:33:16 Fentanyl I.V. 50 Chava Bo for sedation mcg Nando Sutherland RN 16:33:19 Versed I.V. 1 mg Chava Bo for sedation Nando Sutherland RN 16:39:58 Fentanyl I.V. 50 Chava Bo for sedation mcg Nando Sutherland RN 16:40:02 Versed I.V. 1 mg Chava Bo for sedation Nando Sutherland RN 16:41:17 Nitroglycerin I.C. 100 Chava Bo for IC/IA mcg Nando Sutherland RN vasodilation 16:50:26 Brilinta P.O. 90 mg Chava Bo for Nando Sutherland RN antiplatelet therapy Procedure Log Time Note 15:01:11 Von Stafford RT(R) sent for patient. Start room use. 15:15:11 Informed consent obtained and on chart 15:15:15 Diagnostic Cath Status : Elective 15:16:13 Time tracking: Regular hours (M-F 7:00 - 5:00) 15:16:18 Plan of Care:Hemodynamics will remain stable., Cardiac rhythm will remain stable., Comfort level will be maintained., Respiratory function will remain adequate., Patient/ family verbilizes understanding of procedure., Procedure tolerated without complication., Recovers from procedure without complications.. 15:16:24 Patient received from Med II to CCL 2 Alert and oriented. Tansferred to table in Supine position. 15:16:25 Warm blankets applied, and murtaza hugger turned on for patient comfort. 15:16:25 Correct patient and procedure confirmed by team. 15:16:26 ECG and BP/O2 sat monitors applied to patient. 15:16:27 Vital chart was started 15:16:28 Baseline sample Acquired. 15:16:37 Rhythm: sinus rhythm 15:17:11 Full Disclosure recording started 15:17:15 H&P Date Dictated: 04/02/2018 New H&P dictated by physician.. 15:17:16 Pre-procedure instructions explained to patient. 15:17:17 Pre-op teaching completed and patient verbalized understanding. 15:17:19 Family in patients room. 15:17:20 Patient NPO since Midnight. 15:17:22 Is the patient allergic to Iodine/contrast media? No. 15:17:23 Was the patient premedicated? No 15:17:26 Is patient on blood thinner?Yes 15:17:29 ACC The patient was administered the following blood thiners within the last 24 hours: ACCBrilinta 15:17:44 Patient diabetic? No. 15:17:46 Previous problem with sedation/anesthesia? No ? 15:17:49 Snore? Yes 15:17:50 Sleep apnea? No 15:17:51 Deviated septum? No 15:17:51 Opens mouth fully? Yes 15:17:52 Sticks out tongue? Yes 15:17:56 Airway obstruction? No ? 15:17:58 Dentures? Yes Top Oartial Out, Bottom In 15:18:19 Patient pain scale 0/10 ?. 15:18:26 IV patent on arrival in left forearm with 0.9% NaCl at [facility]. 15:18:28 Lab results completed and on chart. 15:18:33 Right groin area was prepped with chlora-prep and draped in sterile fashion 15:18:34 Alarms reviewed by R. N. 15:18:34 Sharps counted by scrub and verified by R.N. 15:47:42 Physician arrived 15:51:00 Use device set Femoral Dx 15:51:03 ACIST Syringe (89685) opened to sterile field. 15:51:05 Bag Decanter (2002S) opened to sterile field. 15:51:06 Medline Cath Pack ([id number]) opened to sterile field. 15:51:07 DIAGNOSTIC WIRE .035 260cm J wire ([id number]) opened to sterile field. 15:51:08 ACIST Hand Control (60626) opened to sterile field. 15:51:09 ACIST Manifold (53681) opened to sterile field. 15:51:09 DIAGNOSTIC Multipack 5Fr catheter set ([id number]) opened to sterile field. 15:51:10 Tegaderm 4 x 4 (1626W) opened to sterile field. 15:51:11 SHEATH Prelude 5Fr 0.035 (CSY-5J-01-035) opened to sterile field. 16:02:25 Pre procedure: right dorsailis pedis pulse 2+ Normal; easily identifiable; not easily obliterated 16:02:31 Final Timeout: patient, procedure, and site verified with staff and physician. All members of the team are in agreement. 16:02:33 Right groin site verified by team. 16:02:36 Physical assessment completed. ASA score P 2 - A patient with mild systemic disease as per Chava Collier MD. 16:02:39 Sedation plan: IV Moderate Sedation Medication:Versed, Fentanyl 16:03:17 Zero performed for pressure channel P1 16:07:20 Oxygen 2 l/min etCO2 Nasal cannula was administered by Bo Sutherland RN; Per physician; 16:07:30 Heparin Flush Bag (1000units/500ml NS) 2 bags added to field was administered by Bo Sutherland RN; used for procedure; 16:07:37 0.9% NaCl 100 ml/hr I.V. was administered by Bo Sutherland RN; Per physician; 16:07:44 Fentanyl 50 mcg I.V. was administered by Bo Sutherland RN; for sedation; 16:07:51 Versed 1 mg I.V. was administered by Bo Sutherland RN; for sedation; 16:08:37 Procedure started. 16:10:02 Versed 1 mg I.V. was administered by Bo Sutherland RN; for sedation; 16:10:43 IV started by Bo Sutherland RN inleft forearm with a 22 gauge IV catheter with 0.9% NaCl at KVO. 16:10:59 Fentanyl 50 mcg I.V. was administered by Bo Sutherland RN; for sedation; 16:11:17 IV left forearm D/C'd due to infiltration. 16:15:51 Local anesthetic to right femoral artery with Lidocaine 2% by Chava Collier MD.INITIAL ACCESS ONLY 16:16:53 Fentanyl 50 mcg I.V. was administered by Bo Sutherland RN; for sedation; 16:16:56 Versed 1 mg I.V. was administered by Bo Sutherland RN; for sedation; 16:18:28 Fentanyl 50 mcg I.V. was administered by Bo Sutherland RN; for sedation; 16:18:31 Versed 1 mg I.V. was administered by Bo Sutherland RN; for sedation; 16:19:53 Fentanyl 50 mcg I.V. was administered by Bo Sutherland RN; for sedation; 16:19:57 Versed 1 mg I.V. was administered by Bo Sutherland RN; for sedation; 16:22:47 Fentanyl 50 mcg I.V. was administered by Bo Sutherland RN; for sedation; 16:22:50 Versed 1 mg I.V. was administered by Bo Sutherland RN; for sedation; 16:25:11 A 5 Fr sheath was inserted into the Right Femoral artery 16:25:39 Fentanyl 50 mcg I.V. was administered by Bo Sutherland RN; for sedation; 16:25:42 Versed 1 mg I.V. was administered by Bo Sutherland RN; for sedation; 16:26:18 A MULTIPACK JL 4.0 5Fr catheter was advanced over the wire and used for Left Coronary Angiography. 16:30:05 Catheter removed. 16:30:13 A MULTIPACK 3DRC 5Fr catheter was advanced over the wire and used for Right Coronary Angiography. 16:30:47 Fentanyl 50 mcg I.V. was administered by Bo Sutherland RN; for sedation; 16:30:50 Versed 1 mg I.V. was administered by Bo Sutherland RN; for sedation; 16:31:45 Catheter removed. 16:31:53 A MULTIPACK Pigtail 5 Fr catheter was advanced over the wire and used for LV Angiography. 16:33:16 Fentanyl 50 mcg I.V. was administered by Bo Sutherland RN; for sedation; 16:33:19 Versed 1 mg I.V. was administered by Bo Sutherland RN; for sedation; 16:33:20 LV gram done using LORENZANA 16:33:21 LV hemodynamics recorded. 16:33:24 Injector settings: Ml/sec: 10, Volume: 20, 16:33:32 EF : 60 % 16:38:42 Catheter removed. 16:39:48 A MULTIPACK JL 4.0 5Fr catheter was advanced over the wire and used for Left Coronary Angiography. 16:39:58 Fentanyl 50 mcg I.V. was administered by Bo Sutherland RN; for sedation; 16:40:02 Versed 1 mg I.V. was administered by Bo Sutherland RN; for sedation; 16:41:17 Nitroglycerin IC/IA 100 mcg I.C. was administered by Bo Sutherland RN; for vasodilation; 16:45:05 Catheter removed. 16:45:08 EXOSEAL 5Fr (EX500) opened to sterile field. 16:45:18 Sheath removed intact; hemostasis achieved with Exoseal to the Right Femoral artery. 16:45:20 Procedure ended.(Physican Out) 16:46:04 Procedure type changed to Cath procedure, Diagnostic procedure, LHC, LHC w/Coronaries, Sedation Charges, Moderate Sedation up to 30 minutes 16:46:11 Fluoroscopy time 02.90 minutes. 16:46:19 Fluoroscopy dose: 666 mGy 16:46:19 Flurop Dose total: 666 16:46:23 Contrast amount:Isovue 300 85ml. 16:46:24 Sharps counted by scrub and verified by R.N. 16:46:26 Insertion/operative site no bleeding no hematoma. 16:46:29 Post-op/insertion site Right Femoral artery dressed using a 4 x 4 and Tegaderm. 16:46:33 Post right femoral artery:stable, clean and dry 16:46:36 Post Procedure Pulses reassessed and unchanged 16:46:38 Post-procedure physical assessment completed. ASA score P 2 - A patient with mild systemic disease as per Chava Collier MD. 16:46:41 Post procedure rhythm: unchanged. 16:46:44 Estimated blood loss: 10 ml 16:46:45 Post procedure instruction explained to patient.Patient verbalizes understanding. 16:46:45 Patient needs reinforcement of post procedure teaching. 16:46:51 Procedure Complication : No complications 16:46:53 See physician's report for complete and final results. 16:48:14 Procedure and supply charges have been captured, reviewed, submitted and are correct. 16:50:26 Brilinta 90 mg P.O. was administered by Bo Sutherland RN; for antiplatelet therapy; 16:51:32 Vital chart was stopped 16:51:36 Report given to PCU. 16:51:40 Patient transfered to PCU with Bed. 16:51:47 Procedure ended. 16:51:47 Full Disclosure recording stopped 16:51:53 End room use (Document Last) Device Usage Item Name Manufacture Quantity Catalog Number Hospital Part Current M inimal Lot# / Charge Number Stock Stock Serial# Code ACIST Syringe Acist 1 31932 652478 244797 133691 2 0 (81594) [employer] Bag Decanter Microtek 1 2001S 721649 12310 490245 5 () [employer] Inc. Medline Cath Cardinal 1 [id number] 628732 25259 380559 5 [facility] ([id number]) DIAGNOSTIC WIRE [facility] [place]jel[facility] 1 720955 597747 953213 111006 3 0 .035 260cm J wire (126317) ACIST Hand Acist 1 18775 624653 579449 534206 5 Control (35502) [employer] ACIST Manifold Acist 1 90437 713517 686654 704006 5 (61837) [employer] DIAGNOSTIC Cardinal 1 [id number] 825816 46302 444172 3 0 Multipack 5Fr Health catheter set (LN2490) Tegaderm 4 x 4 3M 1 1626W 879243 682955 652424 5 (1626W) SHEATH Prelude Merit 1 NZO-7G-54-035 326815 269271 332902 5 5Fr 0.035 Medical ([id number]-7Z-83-035) MULTIPACK JL Cardinal 1 [id number] 5 4.0 5Fr Health catheter MULTIPACK 3DRC Cardinal 1 [id number] 5 5Fr catheter Health MULTIPACK Cardinal 1 900826 5 Pigtail 5 Fr Health catheter EXOSEAL 5Fr Cardinal 1 EX500 705269 904021 550321 1 0 (EX500) Health Signature Audit [place] Stage Time Signature Unsigned Intra-Procedure 04/02/2018 Linh 4:52:04 PM Counts RT(R) Signatures Monitor : Linh Signature : Counts RT Date : Time : [address] [place] [address]
[~2018-04-01 10:02] MED LIST changes: -OXYCONTIN10 MG; +OXYCONTIN10 MG PO
[2018-04-01] MEDS ORDERED: BRILINTA90 MG PO (10:20)
[2018-04-01] MEDS ORDERED: COZAAR25 MG PO (10:21)
[2018-04-01] MEDS ORDERED: REMERON30 MG PO (10:26)
[2018-04-01 10:44] LABS: BASOPHILS 0.5 % (0-2); EOSINOPHILS 0.9 % (0-7); HEMOGLOBIN 14.2 g/dL (12-16); IMMATURE GRANULOCYTES 0.2 % (0-5); LYMPHOCYTES 41.5 % (15-50); MCH 32.3 pg (26.0-34.0); MCHC 34.6 g/dL (31.0-37.0); MCV 93.4 fL (80.0-100.0); MEAN PLATELET VOLUME 8.4 fL (7.4-10.4); MONOCYTES 5.3 % (2-11); NEUTROPHILS 51.6 % (40-80); RBC 4.39 10x6/uL (4.00-5.40); RDW 13.3 % (11.5-14.5); WBC 6.6 10x3/uL (4.8-10.8)
[2018-04-01 10:48] LABS: PLATELET COUNT 385 10x3/uL (130-400)
[2018-04-01 11:00] LABS: APTT 30.6 SECONDS (22.8-39.4); INR 1.03 (0.85-1.17); PROTIME 13.1 SECONDS (11.6-15.0)
[2018-04-01 11:01] LABS: D-DIMER-QUANTITATIVE 0.38 ug/mLFEU (0.20-0.54)
[2018-04-01 11:02] LABS: ALBUMIN 3.8 g/dL (3.4-5.0); ALKALINE PHOSPHATASE 116 U/L (46-116); ALT (SGPT) 44 U/L (10-68); BILIRUBIN - TOTAL 0.48 mg/dL (0.2-1.3); CALC OSMOLALITY 274 mosm/kg (275-300); CALCIUM 9.5 mg/dL (8.5-10.1); CARBON DIOXIDE 23.6 mmol/L (21.0-32.0); CHLORIDE - SERUM 100 mmol/L (98-107); CREATININE - SERUM 1.3 mg/dL (0.6-1.3); GLUCOSE 107 mg/dL (74-106); PROTEIN - SERUM 8.1 g/dL (6.4-8.2); SODIUM 137 mmol/L (136-145); UREA NITROGEN 14 mg/dL (7-18); eGFR NON AFRICAN AMERICAN 43 mL/min (90-120)
[2018-04-01 11:06] LABS: POTASSIUM - SERUM 3.6 mmol/L (3.5-5.1)
[2018-04-01 11:20] LABS: CKMB 0.5 U/L (0.0-3.6); CREATINE KINASE 90 UL (21-215); MAGNESIUM - SERUM 2.2 mg/dL (1.8-2.4); TROPONIN-I < 0.017 ng/mL (0.000-0.060)
[2018-04-01 11:55] VITALS: BP 104/78
[2018-04-01 14:32] VITALS: BP 119/81
[2018-04-01 17:02] VITALS: BP 150/69
[2018-04-01 17:43] VITALS: BP 150/69; BMI 29.3
[2018-04-01 20:00] VITALS: BP 116/79
[2018-04-02] VITALS: BP 111/76
[2018-04-02 04:00] VITALS: BP 115/76
[2018-04-02 06:24] LABS: BASOPHILS 0.6 % (0-2); HEMATOCRIT 38.3 % (36.0-48.0); HEMOGLOBIN 12.6 g/dL (12-16); IMMATURE GRANULOCYTES 0.2 % (0-5); LYMPHOCYTES 40.6 % (15-50); MCHC 32.9 g/dL (31.0-37.0); MCV 94.3 fL (80.0-100.0); MEAN PLATELET VOLUME 8.5 fL (7.4-10.4); MONOCYTES 6.8 % (2-11); NEUTROPHILS 49.8 % (40-80); RBC 4.06 10x6/uL (4.00-5.40); RDW 13.4 % (11.5-14.5)
[2018-04-02 06:29] LABS: PLATELET COUNT 295 10x3/uL (130-400)
[2018-04-02 06:32] LABS: ANION GAP 10.2 mmol/L (8-16); CALCIUM 8.9 mg/dL (8.5-10.1); CARBON DIOXIDE 28.3 mmol/L (21.0-32.0); CREATININE - SERUM 1.2 mg/dL (0.6-1.3); POTASSIUM - SERUM 3.5 mmol/L (3.5-5.1)
[2018-04-02 08:00] VITALS: BP 102/77
[2018-04-02 10:15] VITALS: BMI 29.2
[2018-04-02 11:06] VITALS: Ht 165.1 cm; Wt 80.0 kg
[2018-04-02 11:40] VITALS: BP 110/72
[2018-04-02 20:21] VITALS: BP 111/81
[2018-04-03] VITALS: BP 97/76
[2018-04-03 04:00] VITALS: BP 109/60
[2018-04-03 06:05] LABS: BASOPHILS 0.4 % (0-2); EOSINOPHILS 1.1 % (0-7); HEMATOCRIT 34.7 % (36.0-48.0); HEMOGLOBIN 11.5 g/dL (12-16); IMMATURE GRANULOCYTES 0.2 % (0-5); LYMPHOCYTES 24.4 % (15-50); MCH 30.8 pg (26.0-34.0); MCHC 33.1 g/dL (31.0-37.0); MEAN PLATELET VOLUME 8.3 fL (7.4-10.4); MONOCYTES 4.6 % (2-11); NEUTROPHILS 69.3 % (40-80); PLATELET COUNT 273 10x3/uL (130-400); RBC 3.73 10x6/uL (4.00-5.40); RDW 13.3 % (11.5-14.5); WBC 5.7 10x3/uL (4.8-10.8)
[2018-04-03 06:36] LABS: ANION GAP 15.7 mmol/L (8-16); CARBON DIOXIDE 22.9 mmol/L (21.0-32.0); POTASSIUM - SERUM 3.6 mmol/L (3.5-5.1)
[2018-04-03 09:30] VITALS: BP 136/81
[2018-04-03] MEDS ORDERED: PROTONIX40 MG PO (11:34)
[2018-04-03] MEDS ORDERED: ISOSORBIDE MONO30 M1 PO (13:35)
== END 2018-04-03 15:08 | disposition home or self-care (01) ==
LOC: D.ER 10:02 → OBSVTIME 12:54 → D.M2 12:54 → D.EDHOLD 12:54 → D.M2 16:06
PROVIDERS: Family Medicine; Internal Medicine Nephrology
DX: I25.111 Atherosclerotic heart disease of native coronary artery with angina pectoris with documented spasm (principal); I10 Essential (primary) hypertension; E78.5 Hyperlipidemia, unspecified; G47.00 Insomnia, unspecified; Z95.5 Presence of coronary angioplasty implant and graft; Z87.891 Personal history of nicotine dependence

== ENCOUNTER 2018-05-22 17:48 | Emergency (ER) | payer MEDICARE ==
[~2018-05-22] VITALS: Ht 165.1 cm; Wt 81.6 kg
[~2018-05-22 17:48] MED LIST changes: +BRILINTA90 MG PO; +COZAAR25 MG PO; +ISOSORBIDE MONO30 M1 PO; +PROTONIX40 MG PO; +REMERON30 MG PO
[2018-05-22 19:08] VITALS: Ht 165.1 cm; Wt 81.6 kg
[2018-05-22 23:50] VITALS: BP 128/82
== END 2018-05-22 21:10 | disposition home or self-care (01) ==
LOC: D.ER 17:48
DX: S62.102A Fracture of unspecified carpal bone, left wrist, initial encounter for closed fracture (principal); W18.30XA Fall on same level, unspecified, initial encounter; Y93.89 Activity, other specified; Y92.019 Unspecified place in single-family (private) house as the place of occurrence of the external cause; I10 Essential (primary) hypertension

== ENCOUNTER → 2018-06-07 15:09 | Outpatient (CLI) | payer MEDICARE ==
[2018-05-22 19:08] VITALS: BMI 29.2
== END | disposition home or self-care (01) ==
LOC: D.MRI 15:00
DX: M25.532 Pain in left wrist (principal)

== ENCOUNTER → 2018-08-16 08:00 | Outpatient (CLI) | payer MEDICARE ==
[2018-05-22 19:08] VITALS: BMI 29.2
== END | disposition home or self-care (01) ==
LOC: D.MAMMO 08:00
DX: Z12.31 Encounter for screening mammogram for malignant neoplasm of breast (principal)

== ENCOUNTER 2018-09-20 09:09 | Emergency (ER) | payer MEDICARE ==
[~2018-09-20] VITALS: Ht 165.1 cm; Wt 81.8 kg
[2018-09-20 09:12] VITALS: Ht 165.1 cm; Wt 81.8 kg
[2018-09-20 09:47] LABS: HEMATOCRIT 35.5 % (36.0-48.0); HEMOGLOBIN 11.6 g/dL (12-16); LYMPHOCYTES 30.1 % (15-50); MCH 30.4 pg (26.0-34.0); MCHC 32.7 g/dL (31.0-37.0); MCV 92.9 fL (80.0-100.0); MEAN PLATELET VOLUME 7.6 fL (7.4-10.4); NEUTROPHILS 64.2 % (40-80); PLATELET COUNT 311 10x3/uL (130-400); RBC 3.82 10x6/uL (4.00-5.40); RDW 13.7 % (11.5-14.5); WBC 6.3 10x3/uL (4.8-10.8)
[2018-09-20 10:04] LABS: ALBUMIN 3.5 g/dL (3.4-5.0); BILIRUBIN - TOTAL 0.29 mg/dL (0.2-1.3); CALCIUM 9.3 mg/dL (8.5-10.1); CARBON DIOXIDE 26.9 mmol/L (21.0-32.0); CREATININE - SERUM 1.2 mg/dL (0.6-1.3); POTASSIUM - SERUM 3.9 mmol/L (3.5-5.1); PROTEIN - SERUM 7.4 g/dL (6.4-8.2)
[2018-09-20 11:26] LABS: APPEARANCE CLEAR (CLEAR); BILIRUBIN NEGATIVE (NEGATIVE); COLOR YELLOW (YELLOW); GLUCOSE NEGATIVE (NEGATIVE); KETONE NEGATIVE (NEGATIVE); NITRITE NEGATIVE (NEGATIVE); PROTEIN NEGATIVE (NEGATIVE); SPECIFIC GRAVITY 1.015 (1.005-1.020); UROBILINOGEN NORMAL (NORMAL)
[2018-09-20 11:28] LABS: WHITE CELLS - URINE 0-5 /hpf (0-5)
[2018-09-20 11:29] LABS: BACTERIA FEW /hpf (NONE SEEN); EPITHELIAL CELLS NSEEN /hpf (0-5); RED CELLS - URINE 0-5 /hpf (0-5)
[2018-09-20] MEDS ORDERED: TALWIN NX1 TAB PO (12:59)
[2018-09-20] MEDS ORDERED: BACLOFEN20 M1 PO (12:59)
[2018-09-20 13:47] VITALS: BP 111/76
== END 2018-09-20 13:45 | disposition home or self-care (01) ==
LOC: D.ER 09:09
PROVIDERS: Family Medicine
DX: M79.18 Myalgia, other site (principal); M54.9 Dorsalgia, unspecified; M25.551 Pain in right hip; I10 Essential (primary) hypertension; G47.00 Insomnia, unspecified

== ENCOUNTER 2018-09-23 11:13 | Inpatient (IN) | payer MEDICARE ==
[~2018-09-23] VITALS: Ht 162.6 cm; Wt 81.6 kg
[~2018-09-23 11:13] MED LIST changes: +BACLOFEN20 M1 PO; +OXYCODONE HCL10 MG PO; -OXYCONTIN10 MG PO; +TALWIN NX1 TAB PO
[2018-09-23 16:18] VITALS: BP 102/75; BMI 30.9
--- NOTE | 2018-09-23 16:37 | NUR ---
PATIENT ADMITTED TO ROOM 2213. ALERT AND ORIENTED X 3. LUNGS CLEAR BILATERALLY IN ALL ELIAS. HEART SOUNDS HEARD AT S1 AND S2 IN ALL ELIAS. BOWEL SOUNDS ACTIVE X4. DENIES PROBLEMS WITH BOWEL MOVEMENTS. C/O BACK PAIN 10/10 FROM HERNIATED DISK. SKIN INTACT WITHOUT REDNESS. REFUSED SCDS. WILL CONTINUE TO MONITOR.
[2018-09-23 17:02] LABS: BASOPHILS 0.2 % (0-2); EOSINOPHILS 2.3 % (0-7); HEMATOCRIT 34.8 % (36.0-48.0); HEMOGLOBIN 11.3 g/dL (12-16); IMMATURE GRANULOCYTES 0.2 % (0-5); LYMPHOCYTES 40.2 % (15-50); MCHC 32.5 g/dL (31.0-37.0); MCV 92.3 fL (80.0-100.0); MEAN PLATELET VOLUME 8.1 fL (7.4-10.4); MONOCYTES 5.4 % (2-11); NEUTROPHILS 51.7 % (40-80); PLATELET COUNT 288 10x3/uL (130-400); RBC 3.77 10x6/uL (4.00-5.40); RDW 13.8 % (11.5-14.5); WBC 5.2 10x3/uL (4.8-10.8)
[2018-09-23 17:17] LABS: ANION GAP 13.4 mmol/L (8-16); APTT 30.5 SECONDS (22.8-39.4); CARBON DIOXIDE 26.6 mmol/L (21.0-32.0); CREATININE - SERUM 1.2 mg/dL (0.6-1.3); INR 1.14 (0.85-1.17); PROTIME 14.1 SECONDS (11.6-15.0)
--- NOTE | 2018-09-23 17:49 | NUR ---
after multiple attempts by different nursing staff, a 22 gauge iv was started in the left hand x 1 stick by olive marvin. flushed without difficulty, secured with tape and tegaderm. no redness noted saline locked
--- NOTE | 2018-09-23 17:56 | NUR ---
IV STARTED TO RIGHT HAND WITH 18 GAUGE.
--- NOTE | 2018-09-23 18:41 | NUR ---
PATIENT ASSISTED TO BATHROOM USING WALKER. UNSTEADY GAIT. URINE SPECIMEN COLLECTED. DENIES FURTHER NEEDS. EDUCATED ON BED ALARM AND FALL PRECAUTIONS. VERBALIZED UNDERSTANDING AND STATES WILL USE CALL LIGHT AND WAIT FOR ASSISTANCE
[2018-09-23 19:27] LABS: APPEARANCE CLEAR (CLEAR); BILIRUBIN NEGATIVE (NEGATIVE); COLOR YELLOW (YELLOW); GLUCOSE NEGATIVE (NEGATIVE); KETONE NEGATIVE (NEGATIVE); NITRITE NEGATIVE (NEGATIVE); PROTEIN NEGATIVE (NEGATIVE); UROBILINOGEN NORMAL (NORMAL)
[2018-09-23 19:29] LABS: BACTERIA FEW /hpf (NONE SEEN); RED CELLS - URINE 0-5 /hpf (0-5); WHITE CELLS - URINE 0-5 /hpf (0-5)
--- NOTE | 2018-09-23 20:30 | NUR ---
A&0. REPORTS PAIN 6/10 IN BACK. STATES PAIN MEDICINE IS AFFECTIVE, BUT DOESN'T LAST. TOLD PT WHEN SHE COULD HAVE HER NEXT DOSE, PT SAID SHE WILL PRESS CALL BUTTON AT THAT TIME. WILL CONTINUE TO MONITOR.
[2018-09-23 21:35] VITALS: BP 110/74
[2018-09-24 00:39] VITALS: BP 124/80
--- NOTE | 2018-09-24 03:25 | NUR ---
I have reviewed this patient and I concur with the Shift Assessment completed by the Licensed Practical Nurse today this shift.
[2018-09-24 04:44] VITALS: BP 120/64
[2018-09-24 05:17] LABS: BASOPHILS 0.4 % (0-2); EOSINOPHILS 2.3 % (0-7); HEMATOCRIT 34.4 % (36.0-48.0); IMMATURE GRANULOCYTES 0.2 % (0-5); MCH 29.5 pg (26.0-34.0); MCV 92.2 fL (80.0-100.0); MEAN PLATELET VOLUME 8.4 fL (7.4-10.4); MONOCYTES 5.5 % (2-11); NEUTROPHILS 42.6 % (40-80); PLATELET COUNT 302 10x3/uL (130-400); RBC 3.73 10x6/uL (4.00-5.40); RDW 13.9 % (11.5-14.5); WBC 5.3 10x3/uL (4.8-10.8)
[2018-09-24 05:46] LABS: ALBUMIN 3.3 g/dL (3.4-5.0); ANION GAP 12.2 mmol/L (8-16); BILIRUBIN - TOTAL 0.31 mg/dL (0.2-1.3); CALCIUM 9.1 mg/dL (8.5-10.1); CARBON DIOXIDE 28.4 mmol/L (21.0-32.0); CREATININE - SERUM 1.1 mg/dL (0.6-1.3); POTASSIUM - SERUM 3.6 mmol/L (3.5-5.1)
[2018-09-24] MEDS ORDERED: NITRO-DUR0.6 MG TRANSDERM (07:17)
--- NOTE | 2018-09-24 07:24 | NUR ---
PATIENT LYING IN BED. ALERT AND ORIENTED X3. LUNGS CLEAR BILATERALLY IN ALL ELIAS. HEART SOUNDS HEARD S1 AND S2 IN ALL ELIAS. BOWEL SOUNDS ACTIVE X4. STATES HASN'T HAD A BOWEL MOVEMENT YET BUT "HASN'T EATEN MUCH." SKIN INTACT WITHOUT REDNESS. IV TO RIGHT HAND PATENT WITHOUT REDNESS. DENIES PAIN. STATES PAIN WAS WELL CONTROLLED THROUGHOUT THE NIGHT. DENIES FURTHER NEEDS. WILL CONTINUE TO MONITOR. CALL LIGHT AND PERSONAL ITEMS IN REACH. BED LOW.
[2018-09-24 08:22] VITALS: BP 104/71
--- NOTE | 2018-09-24 09:35 | NUR ---
PRN MORPHINE GIVEN FOR PAIN LEVEL 8/10. WILL CONTINUE TO MONITOR. DENIES FURTHER NEEDS
--- NOTE | 2018-09-24 10:05 | NUR ---
STATES PAIN DECREASED FROM 8 TO 5 AFTER PRN MORPHINE. WILL CONTINUE TO MONITOR
--- NOTE | 2018-09-24 12:30 | NUR ---
PATIENT ASSISTED TO BATHROOM. LARGE VOID NOTED. DENIES FURTHER NEEDS
[2018-09-24 12:42] VITALS: BMI 30.9
[2018-09-24 12:50] VITALS: BP 148/79
--- NOTE | 2018-09-24 13:41 | NUR ---
PRN MORPHINE GIVEN FOR PAIN 01/01. DENIES FURTHER NEEDS. WILL CONTINUE TO MONITOR.
--- NOTE | 2018-09-24 14:15 | NUR ---
PATIENT STATED PAIN NOT WELL CONTROLLED BY PRN MORPHINE. GIVEN OPTION TO GO BACK TO HOME DOSE OF OXYCODONE INSTEAD PER NURSE PRACTITIONER. PATIENT STATES WOULD RATHER HAVE MORPHINE. PATIENT ASSISTED TO BATHROOM AND TO SHOWER PER REQUEST. SISTER AT BEDSIDE. DENIES FURTHER NEEDS.
--- NOTE | 2018-09-24 14:47 | NUR ---
MEDICATIONS GIVEN WITHOUT DIFFICULTY. STATES PAIN PERSISTS AT 8/10 BUT WAS UP TO SHOWER. DENIES FURTHER NEEDS. WILL CONTINUE TO MONITOR.
[2018-09-24 16:34] VITALS: BP 111/67
--- NOTE | 2018-09-24 18:09 | NUR ---
PRN MORPHINE GIVEN FOR PAIN 02/01. ASSISTED TO BATHROOM. MEDIUM BM NOTED. DENIES FURTHER NEEDS. WILL CONTINUE TO MONITOR.
--- NOTE | 2018-09-24 18:45 | NUR ---
PATIENT RESTING IN BED. DENIES NEEDS AT THIS TIME
[2018-09-24 20:28] VITALS: Ht 162.6 cm; Wt 81.6 kg
[2018-09-24 21:12] VITALS: BP 125/67
[2018-09-25 05:09] VITALS: BP 120/60
[2018-09-25 06:42] LABS: BASOPHILS 0.5 % (0-2); HEMATOCRIT 33.6 % (36.0-48.0); HEMOGLOBIN 10.7 g/dL (12-16); IMMATURE GRANULOCYTES 0.2 % (0-5); LYMPHOCYTES 47.7 % (15-50); MCH 29.6 pg (26.0-34.0); MCHC 31.8 g/dL (31.0-37.0); MCV 92.8 fL (80.0-100.0); MEAN PLATELET VOLUME 8.5 fL (7.4-10.4); MONOCYTES 6.8 % (2-11); NEUTROPHILS 41.8 % (40-80); PLATELET COUNT 279 10x3/uL (130-400); RBC 3.62 10x6/uL (4.00-5.40); WBC 5.6 10x3/uL (4.8-10.8)
[2018-09-25 07:17] LABS: ALBUMIN 2.9 g/dL (3.4-5.0); ANION GAP 13.3 mmol/L (8-16); BILIRUBIN - TOTAL 0.15 mg/dL (0.2-1.3); CALCIUM 8.6 mg/dL (8.5-10.1); CREATININE - SERUM 1.1 mg/dL (0.6-1.3); POTASSIUM - SERUM 3.3 mmol/L (3.5-5.1); PROTEIN - SERUM 6.4 g/dL (6.4-8.2)
--- NOTE | 2018-09-25 08:00 | NUR ---
PATIENT IN BED WITH IV INTACT. NO COMPLAINTS OR SIGNS OF DISTRESS. BED ALARM ON FOR PRECAUTIONS. PATIENT CALLS BEFORE SHE GETS UP. CALL LIGHT WITHIN REACH.
[2018-09-25 09:35] VITALS: BP 115/73
--- NOTE | 2018-09-25 11:48 | MORECARE ---
CASE MANAGEMENT DISCHARGE SUMMARY PATIENT: YAJAIRA SMITH UNIT: [id number] ADM DATE: 09/23/18 AGE: 68 : [birth year] SEX: F ROOM/BED: D.2213 AUTHOR: GOPI GOULD PHYSICIAN: REFERRING PHYSICIAN: IRENE CLANCY MD DATE OF SERVICE: 09/25/18 Discharge Plan Patient Name: YAJAIRA SMITH [facility] [facility] 1950 Planned Disposition: Home Anticipated Discharge Date: Discharge Date: Expected LOS: Initial Reviewer: [email or web address] Initial Review Date: 09/23/2018 Generated: 09/25/18 12:48 pm DCPIA - Discharge Planning Initial Assessment Updated by [email or web address]: Ngozi Esparza on 09/25/18 11:45 am * Is the patient Alert and Oriented? Yes * How many steps to enter\exit or inside your home? * PCP AB * Pharmacy [facility] * Preadmission Environment Home with Family * ADLs Independent * Equipment Cane Crutch Rolling Walker * List name and contact numbers for known caregivers / representatives who currently or will assist patient after discharge: [place] [phone] * Verbal permission to speak to the caregivers and representatives has been obtained from the patient. Yes * Community resources currently utilized None * Additional services required to return to the preadmission environment? No * Can the patient safely return to the preadmission environment? Yes * Has this patient been hospitalized within the prior 30 days at any hospital? No Patient Name: YAJAIRA SMITH Page [id number] at 1148 All edits/amendments must be made on the electronic document DICTATION DATE: 09/25/18 1147 HIGH DENSITY TALC COATER OPERATOR: ADWOA 09/25/18 1147 RPT#: [id number] DC DATE: STATUS: ADM IN [facility] [address] [place] [address] END OF REPORT
--- NOTE | 2018-09-25 11:56 | MORECARE ---
CASE MANAGEMENT DISCHARGE SUMMARY PATIENT: YAJAIRA SMITH UNIT: [id number] ADM DATE: 09/23/18 AGE: 68 : [birth year] SEX: F ROOM/BED: D.2213 AUTHOR: BRYANNA,DOC PHYSICIAN: REFERRING PHYSICIAN: IRENE CLANCY MD DATE OF SERVICE: 09/25/18 Discharge Plan Patient Name: YAJAIRA SMITH Facility: [facility]:[place] : 1950 Planned Disposition: Home Anticipated Discharge Date: Discharge Date: Expected LOS: Initial Reviewer: [email or web address] Initial Review Date: 09/23/2018 Generated: 09/25/18 12:56 pm Comments DCP- Discharge Planning Updated by [email or web address]: Ngozi Esparza on 09/25/18 10:[address] Patient Name: YAJAIRA SMITH Admission Status: Elective Accout number: [id number] Admission Date: 09-23-2018 : 1950 Admission Diagnosis: Attending: IRENE CLANCY Current LOS: 2 Anticipated DC Date: Planned Disposition: Home Primary Insurance: MEDICARE A & B Discharge Planning Comments: CM met with patient to complete initial dc planning assessment. CM educated patient on the CM role and verbal consent given by patient to complete assessment. Patient lives at home with her sister where she is independent with her care. At discharge patient plans to return home and feels this is a safe discharge. CM discussed availability of home health, rehab services, and medical equipment. Patient has a cane, crutches, walker at home. She did not think she would need rehab, if she did she has used an outpatient rehab. Patient is scheduled for have surgery on Sunday. Patient denied known discharge needs at this time. CM will continue to follow and will assist as needed with dc plans/needs. Die Setter: Ngozi Esparza DCPIA - Discharge Planning Initial Assessment Updated by [email or web address]: Ngozi Esparza on 09/25/18 11:45 am * Is the patient Alert and Oriented? Yes * How many steps to enter\exit or inside your home? * PCP AB * Pharmacy [facility] * Preadmission Environment Home with Family * ADLs Independent * Equipment Cane Crutch Rolling Walker * List name and contact numbers for known caregivers / representatives who currently or will assist patient after discharge: [place] [phone] * Verbal permission to speak to the caregivers and representatives has been obtained from the patient. Yes * Community resources currently utilized None * Additional services required to return to the preadmission environment? No * Can the patient safely return to the preadmission environment? Yes * Has this patient been hospitalized within the prior 30 days at any hospital? No Last DP export: 09/25/18 10:48 am Patient Name: YAJAIRA SMITH Page 32250 at 1156 All edits/amendments must be made on the electronic document DICTATION DATE: 09/25/18 115 LIVESTOCK SALES REPRESENTATIVE: ADWOA 09/25/18 1155 RPT#: [id number] DC DATE: STATUS: ADM IN [address] [place] [address] END OF REPORT
[2018-09-25 13:58] VITALS: BP 143/85
--- NOTE | 2018-09-25 15:39 | NUR ---
PATIENT IN BED WITH IV INTACT. EYES CLOSED RESTING QUIETLY. CALL LIGHT WITHIN RECH.
[2018-09-25 18:01] VITALS: BP 119/70
[2018-09-25 21:11] VITALS: BP 109/65
[2018-09-26 01:32] VITALS: BP 124/60
[2018-09-26 05:18] VITALS: BP 116/74
[2018-09-26 07:28] LABS: BASOPHILS 0.6 % (0-2); EOSINOPHILS 3.2 % (0-7); HEMATOCRIT 31.2 % (36.0-48.0); HEMOGLOBIN 10.1 g/dL (12-16); IMMATURE GRANULOCYTES 0.2 % (0-5); LYMPHOCYTES 40.1 % (15-50); MCH 29.7 pg (26.0-34.0); MCHC 32.4 g/dL (31.0-37.0); MCV 91.8 fL (80.0-100.0); MEAN PLATELET VOLUME 8.1 fL (7.4-10.4); MONOCYTES 6.7 % (2-11); NEUTROPHILS 49.2 % (40-80); PLATELET COUNT 238 10x3/uL (130-400); RDW 14.1 % (11.5-14.5); WBC 5.4 10x3/uL (4.8-10.8)
[2018-09-26 07:44] LABS: ALBUMIN 2.8 g/dL (3.4-5.0); ANION GAP 11.9 mmol/L (8-16); BILIRUBIN - TOTAL 0.2 mg/dL (0.2-1.3); CALCIUM 8.3 mg/dL (8.5-10.1); CARBON DIOXIDE 26.9 mmol/L (21.0-32.0); POTASSIUM - SERUM 3.8 mmol/L (3.5-5.1); PROTEIN - SERUM 6.2 g/dL (6.4-8.2)
[2018-09-26 08:45] VITALS: BP 107/58
[2018-09-26 14:41] VITALS: BP 93/54
[2018-09-26 18:28] VITALS: BP 111/65
[2018-09-26 21:00] VITALS: BP 103/74
[2018-09-27 04:36] VITALS: BP 143/80
[2018-09-27 06:20] LABS: BASOPHILS 0.4 % (0-2); EOSINOPHILS 2.8 % (0-7); HEMATOCRIT 33.8 % (36.0-48.0); HEMOGLOBIN 10.9 g/dL (12-16); IMMATURE GRANULOCYTES 0.4 % (0-5); LYMPHOCYTES 41.1 % (15-50); MCH 29.8 pg (26.0-34.0); MCHC 32.2 g/dL (31.0-37.0); MCV 92.3 fL (80.0-100.0); MEAN PLATELET VOLUME 8.4 fL (7.4-10.4); MONOCYTES 7.7 % (2-11); NEUTROPHILS 47.6 % (40-80); PLATELET COUNT 257 10x3/uL (130-400); RBC 3.66 10x6/uL (4.00-5.40); RDW 14.2 % (11.5-14.5); WBC 5.3 10x3/uL (4.8-10.8)
[2018-09-27 06:39] LABS: ALBUMIN 2.9 g/dL (3.4-5.0); ANION GAP 12.1 mmol/L (8-16); BILIRUBIN - TOTAL 0.09 mg/dL (0.2-1.3); CALCIUM 8.3 mg/dL (8.5-10.1); CARBON DIOXIDE 25.5 mmol/L (21.0-32.0); POTASSIUM - SERUM 3.6 mmol/L (3.5-5.1); PROTEIN - SERUM 6.3 g/dL (6.4-8.2)
--- NOTE | 2018-09-27 07:27 | NUR ---
PT LEFT FLOOR WITH HOSPITAL STAFF FOR PROCEDURE. VS STABLE. GAVE REPORT TO DAY SHIFT TO ASSUME CARE.
--- NOTE | 2018-09-27 08:21 | NUR ---
NOAM FRAME USED
[2018-09-27 10:42] VITALS: BP 112/75
--- NOTE | 2018-09-27 10:45 | NUR ---
PT. RETURNED TO RM AND STABLE. ALERT AND ORIENTED WITH GOOD ROM OF EXTX4. DENIES ANY PAIN OR DISCOMFORT AT THIS TIME. FAMILY PRESENT WITH IVF INFUSING AT AL ESCRIBED RATE. ENCOURAGED TO USE CALL LIGHT FOR ASSSIT. DRESSING DRY AND INTACT TO BACK.
[2018-09-27 15:45] VITALS: BP 106/71
[2018-09-27 20:00] VITALS: BP 105/63
--- NOTE | 2018-09-27 20:30 | NUR ---
PT RESTING IN BED. ALERT AND ORIENTED. NO SIGNS OF DISTRESS. BREATHING EVEN AND UNLABORED. PT STATES NO PROBLEMS AT THIS TIME. IV SITE RT HAND DRESSING CLEAN DRY AND ITNACT. NO SIGNS OF INFECTION. DRESSING ON LOWER BACK SOAKED THROUGH TO THE SHEETS. CHANGED DRESSING WITH 4X4 AND A MIPLEX BORDER GAUZE. PT TOLERATED WELL. WILL CONTINUE TO MONITOR. NO LOWER LEG SWELLING PRESENT. WILL CONTINUE PLAN OF CARE. CALL LIGHT IN REACH. BED LOWERED AND LOCKED. BED RAILS UP X2.
[2018-09-28] VITALS: BP 119/70
[2018-09-28 00:11] LABS: APPEARANCE CLEAR (CLEAR); BACTERIA NONE SEEN /hpf (NONE SEEN); BILIRUBIN NEGATIVE (NEGATIVE); COLOR YELLOW (YELLOW); EPITHELIAL CELLS NSEEN /hpf (0-5); GLUCOSE NEGATIVE (NEGATIVE); KETONE NEGATIVE (NEGATIVE); NITRITE NEGATIVE (NEGATIVE); PROTEIN NEGATIVE (NEGATIVE); RED CELLS - URINE 0-5 /hpf (0-5); SPECIFIC GRAVITY 1.015 (1.005-1.020); UROBILINOGEN NORMAL (NORMAL); WHITE CELLS - URINE NSEEN /hpf (0-5)
--- NOTE | 2018-09-28 02:23 | NUR ---
I have reviewed this patient and I concur with the Shift Assessment completed by the Licensed Practical Nurse today this shift.
[2018-09-28 04:00] VITALS: BP 112/68
[2018-09-28 07:17] LABS: BASOPHILS 0 % (0-2); EOSINOPHILS 0 % (0-7); HEMOGLOBIN 9.6 g/dL (12-16); IMMATURE GRANULOCYTES 0.2 % (0-5); MCH 29.8 pg (26.0-34.0); MCHC 33.1 g/dL (31.0-37.0); MEAN PLATELET VOLUME 8.5 fL (7.4-10.4); NEUTROPHILS 82.8 % (40-80); RBC 3.22 10x6/uL (4.00-5.40); RDW 13.9 % (11.5-14.5)
[2018-09-28 07:39] LABS: MCV 90.1 fL (80.0-100.0); PLATELET COUNT 330 10x3/uL (130-400); WBC 12.6 10x3/uL (4.8-10.8)
[2018-09-28 07:51] LABS: ALBUMIN 3.2 g/dL (3.4-5.0); BILIRUBIN - TOTAL 0.28 mg/dL (0.2-1.3); CALCIUM 8.7 mg/dL (8.5-10.1); CARBON DIOXIDE 20.4 mmol/L (21.0-32.0); PROTEIN - SERUM 6.5 g/dL (6.4-8.2)
[2018-09-28 07:52] LABS: ANION GAP 19.1 mmol/L (8-16); POTASSIUM - SERUM 4.5 mmol/L (3.5-5.1)
[2018-09-28 09:50] VITALS: BP 145/91
--- NOTE | 2018-09-28 13:05 | NUR ---
ALERT AND ORIENTED WITH DRESSING DRY AND INTACT TO LUMBARE OF BACK. IV INFILTRATED WITH ODER TO DISCONTINUE. DR. CLANCY HERE WITH NEW ORDER FOR PAIN MEDICATION AND EFFECTIVE. SBA WITH WALKER WITH AMBULATING TO BATHROOM. [id number] TO USE CALL LIGHT FOR ASSIST. PAINMEDICATION EFFECTIVE AT THIS TIME.
[2018-09-28 14:16] VITALS: BP 134/79
[2018-09-28 17:19] VITALS: BP 125/71
--- NOTE | 2018-09-28 20:30 | NUR ---
PT ALERT AND ORIENTED WHEN ENTERING THE ROOM. STATES THAT SHE IS ABLE TO AMBULATE TO BATHROOM WITH WALKER. INSTRUCTED PT TO USE CALL LIGHT WHEN IN NEED OF ASSISTANCE. DENIES NEEDS AT THIS TIME. CALL LIGHT IN REACH.
[2018-09-28 20:32] VITALS: BP 109/67
--- NOTE | 2018-09-29 04:07 | NUR ---
I have reviewed this patient and I concur with the Shift Assessment completed by the Licensed Practical Nurse today this shift.
[2018-09-29 06:48] LABS: BASOPHILS 0.2 % (0-2); EOSINOPHILS 1.1 % (0-7); IMMATURE GRANULOCYTES 0.2 % (0-5); LYMPHOCYTES 36.4 % (15-50); MCH 29.9 pg (26.0-34.0); MCHC 32.3 g/dL (31.0-37.0); MEAN PLATELET VOLUME 8.7 fL (7.4-10.4); MONOCYTES 4.8 % (2-11); NEUTROPHILS 57.3 % (40-80); PLATELET COUNT 333 10x3/uL (130-400); RBC 3.35 10x6/uL (4.00-5.40); RDW 14.3 % (11.5-14.5)
[2018-09-29 06:52] LABS: MCV 92.5 fL (80.0-100.0); WBC 9.1 10x3/uL (4.8-10.8)
[2018-09-29 07:10] LABS: ALBUMIN 3.2 g/dL (3.4-5.0); BILIRUBIN - TOTAL 0.22 mg/dL (0.2-1.3); CALCIUM 8.6 mg/dL (8.5-10.1); CREATININE - SERUM 1.1 mg/dL (0.6-1.3); PROTEIN - SERUM 6.7 g/dL (6.4-8.2)
[2018-09-29 07:12] LABS: ANION GAP 11.3 mmol/L (8-16); CARBON DIOXIDE 27.5 mmol/L (21.0-32.0); POTASSIUM - SERUM 3.8 mmol/L (3.5-5.1)
[2018-09-29] MEDS ORDERED: DILAUDID2 MG PO (09:59)
[2018-09-29] MEDS ORDERED: SOMA350 MG PO (10:00)
[2018-09-29 10:12] VITALS: BP 135/72
--- NOTE | 2018-09-29 11:33 | NUR ---
ALERT AND ORIENTED WITH DRESSING DRY AND INTACT TO BACK. DILAUDID EFFECTIVE FOR BACK PAIN. AMBULATES WITH SBA WITH WALKER. DISCHARGE ORDERS GIVEN WITH NEEDS DISCUSSED WITH VERIFICATION ENGINEER. ENCOURAGED TO USE CALL LIGHT FOR ASSIST. GOOD ROM TO EXT. X4.
--- NOTE | 2018-09-29 12:40 | NUR ---
PT VERBALIZED UNDERSTANDING OF DISCHARGE INSTRUCTIONS AND APPRECIATIVE OF CARE RECEIVED. DISCHARGED UNDER CARE [facility].
--- NOTE | 2018-09-29 17:25 | MORECARE ---
CASE MANAGEMENT DISCHARGE SUMMARY PATIENT: YAJAIRA SMITH UNIT: [id number] ADM DATE: 09/23/18 AGE: 68 : 49 SEX: F ROOM/BED: D.2213 AUTHOR: GOPI GOULD PHYSICIAN: REFERRING PHYSICIAN: IRENE CLACNY MD DATE OF SERVICE: 09/29/18 Discharge Plan Patient Name: YAJAIRA SMITH Facility: [facility]:[place] : 1950 Planned Disposition: Home Anticipated Discharge Date: 09/29/18 Discharge Date: 09/29/2018 Expected LOS: 6 Initial Reviewer: [email or web address] Initial Review Date: 09/23/2018 Generated: 09/29/18 6:25 pm DCP- Discharge Planning Updated by [email or web address]: Ngozi Esparza on 09/25/18 10:[address] Patient Name: YAJAIRA SMITH Admission Status: Elective Accout number: [id number] Admission Date: 09-23-2018 : 1950 Admission Diagnosis: Attending: IRENE CLANCY Current LOS: 2 Anticipated DC Date: Planned Disposition: Home Primary Insurance: MEDICARE A & B Discharge Planning Comments: CM met with patient to complete initial dc planning assessment. CM educated patient on the CM role and verbal consent given by patient to complete assessment. Patient lives at home with her sister where she is independent with her care. At discharge patient plans to return home and feels this is a safe discharge. CM discussed availability of home health, rehab services, and medical equipment. Patient has a cane, crutches, walker at home. She did not think she would need rehab, if she did she has used an outpatient rehab. Patient is scheduled for have surgery on Sunday. Patient denied known discharge needs at this time. CM will continue to follow and will assist as needed with dc plans/needs. Purification Director: Ngozi Esparza DCPIA - Discharge Planning Initial Assessment Updated by [email or web address]: Ngozi Esparza on 09/25/18 11:45 am * Is the patient Alert and Oriented? Yes * How many steps to enter\exit or inside your home? * PCP AB * Pharmacy [facility] * Preadmission Environment Home with Family * ADLs Independent * Equipment Cane Crutch Rolling Walker * List name and contact numbers for known caregivers / representatives who currently or will assist patient after discharge: [place] [phone] * Verbal permission to speak to the caregivers and representatives has been obtained from the patient. Yes * Community resources currently utilized None * Additional services required to return to the preadmission environment? No * Can the patient safely return to the preadmission environment? Yes * Has this patient been hospitalized within the prior 30 days at any hospital? No Last DP export: 09/25/18 10:56 am Patient Name: YAJAIRA SMITH Page 48320 at 1725 All edits/amendments must be made on the electronic document DICTATION DATE: 09/29/181723 CONTROL SYSTEM COMPUTER SCIENTIST: ADWOA 09/29/181723 RPT#: [id number] DC DATE:09/29/18 STATUS: DIS IN [facility] [address] [place] [address] END OF REPORT
--- NOTE | 2018-09-29 17:38 | MORECARE ---
CASE MANAGEMENT DISCHARGE SUMMARY PATIENT: YAJAIRA SMITH UNIT: [id number] ADM DATE: 09/23/18 AGE: 68 : 49 SEX: F ROOM/BED: D.2213 AUTHOR: BRYANNA,DOC PHYSICIAN: REFERRING PHYSICIAN: IRENE CLANCY MD DATE OF SERVICE: 09/29/18 Discharge Plan Patient Name: YAJAIRA SMITH Facility: [facility]:[place] : 1950 Planned Disposition: Home Anticipated Discharge Date: 09/29/18 Discharge Date: 09/29/2018 Expected LOS: 6 Initial Reviewer: [email or web address] Initial Review Date: 09/23/2018 Generated: 09/29/18 6:38 pm Comments DCP- Discharge Planning Updated by [email or web address]: Ginger Jenkins on 09/29/18 4:[address] LATE ENTRY 1000 DR CLANCY REQUEST CM TO SPEAK WITH THE PATIENT REGARDING A [place]APEZE FOR HOME. CM VISITED. SHE HAD NO PREFERRED PROVIDER. DISCUSSED PROVIDERS. DME PROVIDER LIST GIVEN. SHE HAD QUESTIONS REGARDING COVERAGE. EXPLAINED THE OFFICE WOULD HAVE TO ADDRESS W/ HER ON SUNDAY. PATIENT CHOICE FORM SIGNATURES OBTAINED. COPY TO THE PATIENT AND COPY TO THE CHART. TC TO [facility]. SPOKE WITH THE [place] EVALUATOR VENDING MACHINE SERVICER, [place]. HE WILL HAVE TO OBTAIN ONE FROM ANOTHER OFFICE ON SUNDAY. THE OFFICE WILL CALL THE PATIENT IN THE AM SHE WANTED TO KNOW IF IT WAS COVERED BY INSURANCE. FAXED FACE SHEET, PRESCRIPTION AND CLINICAL FOR INSURANCE DOCUMENTATION. CONTACT PHONE NUMBER FOR BELEN PROVIDED W/ DISCHARGE PAPERWORK FORE THE PATIENT. SHE IS IN AGREEMENT W/ PLAN. DCP- Discharge Planning Updated by [email or web address]: Ngozi Esparza on 09/25/18 10:[address] Patient Name: YAJAIRA SMITH Admission Status: Elective Accout number: [id number] Admission Date: 09-23-2018 : 1950 Admission Diagnosis: Attending: IRENE CLANCY Current LOS: 2 Anticipated DC Date: Planned Disposition: Home Primary Insurance: MEDICARE A & B Discharge Planning Comments: CM met with patient to complete initial dc planning assessment. CM educated patient on the CM role and verbal consent given by patient to complete assessment. Patient lives at home with her sister where she is independent with her care. At discharge patient plans to return home and feels this is a safe discharge. CM discussed availability of home health, rehab services, and medical equipment. Patient has a cane, crutches, walker at home. She did not think she would need rehab, if she did she has used an outpatient rehab. Patient is scheduled for have surgery on Sunday. Patient denied known discharge needs at this time. CM will continue to follow and will assist as needed with dc plans/needs. Replacer: Ngozi Esparza DCPIA - Discharge Planning Initial Assessment Updated by [email or web address]: Ngozi Esparza on 09/25/18 11:45 am * Is the patient Alert and Oriented? Yes * How many steps to enter\exit or inside your home? * PCP AB * Pharmacy [facility] * Preadmission Environment Home with Family * ADLs Independent * Equipment Cane Crutch Rolling Walker * List name and contact numbers for known caregivers / representatives who currently or will assist patient after discharge: [place] [phone] * Verbal permission to speak to the caregivers and representatives has been obtained from the patient. Yes * Community resources currently utilized None * Additional services required to return to the preadmission environment? No * Can the patient safely return to the preadmission environment? Yes * Has this patient been hospitalized within the prior 30 days at any hospital? No Last DP export: 09/29/18 4:25 pm Patient Name: YAJAIRA SMITH Page [phone] at 1738 All edits/amendments must be made on the electronic document DICTATION DATE: 09/29/181736 HOTEL DESK CLERK: ADWOA 09/29/181736 RPT#: [id number] DC DATE:09/29/18 STATUS: DIS IN [facility] [address] [place] [address] END OF REPORT
--- NOTE | 2018-09-30 13:47 | MORECARE ---
CASE MANAGEMENT DISCHARGE SUMMARY PATIENT: YAJAIRA SMITH UNIT: [id number] ADM DATE: 09/23/18 AGE: 68 : 49 SEX: F ROOM/BED: D.2213 AUTHOR: BRYANNA,DOC PHYSICIAN: REFERRING PHYSICIAN: IRENE CLANCY MD DATE OF SERVICE: 09/30/18 Discharge Plan Patient Name: YAJAIRA SMITH Facility: [facility]:[place] : 1950 Planned Disposition: Home Anticipated Discharge Date: 09/29/18 Discharge Date: 09/29/2018 Expected LOS: 6 Initial Reviewer: [email or web address] Initial Review Date: 09/23/2018 Generated: 09/30/18 2:47 pm Comments DCP- Discharge Planning Updated by [email or web address]: Ginger Jenkins on 09/29/18 4:[address] LATE ENTRY [address] DR CLANCY REQUEST CM TO SPEAK WITH THE PATIENT REGARDING A TRAPEZE FOR HOME. CM VISITED. SHE HAD NO PREFERRED PROVIDER. DISCUSSED PROVIDERS. DME PROVIDER LIST GIVEN. SHE HAD QUESTIONS REGARDING COVERAGE. EXPLAINED THE OFFICE WOULD HAVE TO ADDRESS W/ HER ON SUNDAY. PATIENT CHOICE FORM SIGNATURES OBTAINED. COPY TO THE PATIENT AND COPY TO THE CHART. TC TO BELEN. SPOKE WITH THE [place] APPRENTICE DIRECTOR OF SOLUTIONS ARCHITECTURE, [place]. HE WILL HAVE TO OBTAIN ONE FROM ANOTHER OFFICE ON SUNDAY. THE OFFICE WILL CALL THE PATIENT IN THE AM SHE WANTED TO KNOW IF IT WAS COVERED BY INSURANCE. FAXED FACE SHEET, PRESCRIPTION AND CLINICAL FOR INSURANCE DOCUMENTATION. CONTACT PHONE NUMBER FOR [facility] PROVIDED W/ DISCHARGE PAPERWORK FORE THE PATIENT. SHE IS IN AGREEMENT W/ PLAN. DCP- Discharge Planning Updated by [email or web address]: Ngozi Esparza on 09/25/18 10:[address] Patient Name: YAJAIRA SMITH Admission Status: Elective Accout number: [id number] Admission Date: 09-23-2018 : 1950 Admission Diagnosis: Attending: IRENE CLANCY Current LOS: 2 Anticipated DC Date: Planned Disposition: Home Primary Insurance: MEDICARE A & B Discharge Planning Comments: CM met with patient to complete initial dc planning assessment. CM educated patient on the CM role and verbal consent given by patient to complete assessment. Patient lives at home with her sister where she is independent with her care. At discharge patient plans to return home and feels this is a safe discharge. CM discussed availability of home health, rehab services, and medical equipment. Patient has a cane, crutches, walker at home. She did not think she would need rehab, if she did she has used an outpatient rehab. Patient is scheduled for have surgery on Sunday. Patient denied known discharge needs at this time. CM will continue to follow and will assist as needed with dc plans/needs. Margin Clerk: Ngozi Esparza DCPIA - Discharge Planning Initial Assessment Updated by [email or web address]: Ngozi Esparza on 09/25/18 11:45 am * Is the patient Alert and Oriented? Yes * How many steps to enter\exit or inside your home? * PCP AB * Pharmacy [facility] * Preadmission Environment Home with Family * ADLs Independent * Equipment Cane Crutch Rolling Walker * List name and contact numbers for known caregivers / representatives who currently or will assist patient after discharge: [place] [phone] * Verbal permission to speak to the caregivers and representatives has been obtained from the patient. Yes * Community resources currently utilized None * Additional services required to return to the preadmission environment? No * Can the patient safely return to the preadmission environment? Yes * Has this patient been hospitalized within the prior 30 days at any hospital? No Last DP export: 09/29/18 4:38 pm Patient Name: YAJAIRA SMITH Page 30541 at 1347 All edits/amendments must be made on the electronic document DICTATION DATE: 09/30/18 1347 PUBLIC HEALTH DIRECTOR: ADWOA 09/30/18 1347 RPT#: [id number] DC DATE:09/29/18 STATUS: DIS IN [facility] [address] [place] [address] END OF REPORT
== END 2018-09-29 12:45 | disposition home or self-care (01) | DRG 516 ==
LOC: D.MRI 11:13 → D.MS 15:46
PROVIDERS: Family Medicine; Neurological Surgery; ADMIT Orthopaedic Surgery; ATTEND Orthopaedic Surgery
PROC: 0SH004Z Insertion of Internal Fixation Device into Lumbar Vertebral Joint, Open Approach (ICD-10-PCS; principal; 2018-09-27 07:30)
DX: M51.16 Intervertebral disc disorders with radiculopathy, lumbar region (principal); I20.1 Angina pectoris with documented spasm; I10 Essential (primary) hypertension; I25.10 Atherosclerotic heart disease of native coronary artery without angina pectoris; E78.5 Hyperlipidemia, unspecified

== ENCOUNTER → 2019-11-18 11:36 | Outpatient (CLI) | payer MEDICARE ==
[2018-09-24 20:28] VITALS: BMI 30.9
[~2019-11-18 11:36] MED LIST changes: +CARAFATE1 G PO; +DILAUDID2 MG PO; +HYDROCODON-ACE1 EA10 PO; -INDERAL10 MG PO; +LUNESTA2 M1 PO; +NITRO-DUR0.6 MG TRANSDERM; +NORVASC5 MG PO; +PROPRANOLOL HCL20 MG PO; +SOMA350 MG PO; +ZOLOFT100 MG PO
== END | disposition home or self-care (01) ==
LOC: D.LABREF 11:36
PROVIDERS: ATTEND Internal Medicine Pulmonary Disease
DX: Z11.59 Encounter for screening for other viral diseases (principal)

== ENCOUNTER → 2019-11-25 12:01 | Outpatient (CLI) | payer MEDICARE ==
[2018-09-24 20:28] VITALS: BMI 30.9
== END | disposition home or self-care (01) ==
LOC: D.LABREF 12:01
PROVIDERS: ATTEND Internal Medicine Pulmonary Disease
DX: Z11.59 Encounter for screening for other viral diseases (principal)

== ENCOUNTER 2019-11-27 06:11 | Inpatient (IN) | payer MEDICARE, OTHER ==
[2019-11-25 11:11] LABS: HEMATOCRIT 36.7 % (36.0-48.0); HEMOGLOBIN 11.7 g/dL (12-16); MCH 28.3 pg (26.0-34.0); MCHC 31.9 g/dL (31.0-37.0); MCV 88.9 fL (80.0-100.0); RBC 4.13 10x6/uL (4.00-5.40); RDW 14.8 % (11.5-14.5); WBC 6.2 10x3/uL (4.8-10.8)
[2019-11-25 11:33] LABS: ANION GAP 15.5 mmol/L (8-16); CALCIUM 9.4 mg/dL (8.5-10.1); CARBON DIOXIDE 24.5 mmol/L (21.0-32.0); CREATININE - SERUM 1.3 mg/dL (0.6-1.3)
[2019-11-27] VITALS (8 sets, daily range): BP systolic 18–159; BP diastolic 60–86; BMI 32.7
[~2019-11-27] VITALS: Ht 162.6 cm; Wt 86.2 kg
--- NOTE | ~2019-11-27 | OP ---
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 PROCEDURE: Anterior cervical discectomy and fusion at C3-C4 with Zavation anterior cervical plate and screws separately from a PEEK interbody cage at C3-C4 with bone stem cells. SURGEON: Benito Teague MD DESCRIPTION OF TECHNIQUE: After induction of general endotracheal anesthesia, C3-C4 interspace was identified with fluoroscopic x-ray. A Newton dissector localized the C3-C4 interspace. After infiltration of 1:100,000 epinephrine and 1% lidocaine, a transverse skin incision was carried out from the midline to the sternocleidomastoid muscle. The platysma was divided with #15-blade. Using blunt and sharp dissection with Metzenbaum scissors, I proceeded in avascular plane. The C3-C4 interspace was identified with fluoroscopic x-ray and a spinal needle. The longus colli muscles were elevated from bodies of C3 and C4. Self-retaining retractors were placed deep to the longus colli muscles. [place] distracting pins were placed in the bodies of C3 and C4. The level was confirmed with fluoroscopic x-ray. The disc space was incised under distraction. The pituitary rongeurs and curettes were used to remove the cartilaginous endplates at C3 and C4. A Midas Harvey drill and microscope were used to remove osteophytes posteriorly. The posterior longitudinal ligament was removed with Cloward rongeurs. Following this, the dura was decompressed well. A separate PEEK interbody cage was placed in the disc space under distraction. Prior to this, it was filled with bone stem cells. A Zavation anterior cervical plate and screws was used to span the C3-C4 interspace. Locking cams were tightened down over the screw heads. Good position of the hardware was confirmed with fluoroscopic x-ray. This plate was a separate anterior cervical plate from the PEEK interbody cage. A 4-0 Vicryl suture was used to reapproximate the platysma and subdermal layer. The skin was reapproximated with Steri-Strips and benzoin. A sterile dressing was applied to the wound. The patient was awakened in good condition and taken to recovery. All counts were reported as correct. Estimated blood loss was minimal. TRANSINT:[id number] Voice Confirmation ID: [id number] DOCUMENT ID: [id number] BENITO TEAGUE MD CC: [id number] DICTATION DATE: 12/22/19902 MANAGER ADMINISTRATIVE: 12/22/19 1155 DIS IN 11/28/19 [address] [place] [address]
--- NOTE | 2019-11-27 12:12 | NUR ---
1211 PATIENT AROUSABLE, OPA DISCONTINUED MAINTAINING PATEN AIRWAY
--- NOTE | 2019-11-27 13:33 | NUR ---
PATIENT ADMITTED TO ROOM 2213. BED ALARM ON. CLEAR LIQUID TRAY ORDERED. ADMISSION COMPLETE.
[2019-11-28 04:00] VITALS: BP 117/67
[2019-11-28 08:46] VITALS: BP 134/84
--- NOTE | 2019-11-28 10:36 | NUR ---
PT LYOING IN BED WITH FRIEND AT [facility], STATED PAIN IS NOT TOO BAD JUST A NEUSANCE MORE THAN ANYTHING, PT INQUIRED ON POSSIBLE EDC TODAY. EXPLAINED THAT WE ARE WAITING ON DR RIVAS FOR ROUNDS. NO OTHER NEEDS AT THIS TIME, CONTINUE WITH PLAN OF CARE
[2019-11-28 11:14] VITALS: Ht 162.6 cm; Wt 86.2 kg
[2019-11-28] MEDS ORDERED: HYDROCODON-ACE1 EA10 PO (15:59)
--- NOTE | 2019-11-28 17:23 | NUR ---
I have reviewed this patient and I concur with the Shift Assessment completed by the Licensed Practical Nurse today this shift.
== END 2019-11-28 19:13 | disposition home or self-care (01) | DRG 473 ==
LOC: D.OPS 06:11 → D.MS 12:32 → D.OPS 12:33 → D.MS 12:33
PROVIDERS: Anesthesiology; ADMIT Neurological Surgery; ATTEND Neurological Surgery
PROC: 0RG10A0 Fusion of Cervical Vertebral Joint with Interbody Fusion Device, Anterior Approach, Anterior Column, Open Approach (ICD-10-PCS; principal; 2019-11-27 09:00)
PROC: 0RT30ZZ Resection of Cervical Vertebral Disc, Open Approach (ICD-10-PCS; 2019-11-27 09:00)
DX: M50.21 Other cervical disc displacement, high cervical region (principal); M54.12 Radiculopathy, cervical region; M25.78 Osteophyte, vertebrae

== ENCOUNTER → 2019-12-10 10:32 | Outpatient (CLI) | payer MEDICARE ==
[2019-11-28 11:14] VITALS: BMI 32.6
--- NOTE | ~2019-12-10 | EC ---
PATIENT:YAJAIRA SMITH DATE OF SERVICE: 12/10/19 SEX: F MEDICAL RECORD: [id number] DATE OF : [birth year] [facility] AGE OF PATIENT: 69 ADMISSION DATE: 12/10/19 REFERRING PHYSICIAN: INTERPRETING PHYSICIAN: SHABBIR QUEZADA MD ECHOCARDIOGRAM REPORT ECHO CHARGES 4 ECHO COMPLETE Date: 12/10/19 CLINICAL DIAGNOSIS: CAD ECHOCARDIOGRAPHIC MEASUREMENTS (adult normal given) AC root (d.<3.7cm) 3.5 cm LV Septum d (<1.2 cm> 1.3 cm Valve Excursion 1.7 cm LV Septum (systole) 1.5 cm Left Atria (s.<4.0cm> 2.7 cm LVPW d(<1.2cm) 1.5 cm RV (d.<2.3cm) 2.3 cm LVPW (sytole) 1.9 cm LV diastole(<5.6CM) 4.7 cm MV E-F(>70mm/sec) cm LV systole 3.2 cm LVOT Diameter 1.9 cm MV exc.(>10mm) cm Est.ejection fraction (50-75%) % DOPPLER: LVIT cm/sec A 90.0 cm/sec E 39.0 cm/sec LA cm/sec RVSP 16 mmHg LVOT 108 cm/sec AOP1/2T m/s Asc. Ao 136 cm/sec RVOT 94 cm/sec RA cm/sec PA 93 cm/sec AV Gradient Peak 7.41 mmHg AV Mean 3.53 mmHg AV Area 2.6 cm MV Gradient Peak 6.56 mmHg MV Mean 2.77 mmHg MV Area cm COMMENTS: Spa Associate: 2 RUBINA WHITE Beauty Culture Teacher: 3 Dr. Oliveros TAPE# PACS Pericardial Effusion N DATE OF SERVICE: Adequate 2D, color flow imaging, spectral Doppler, and M-Mode. Mild LVH. LV internal dimensions are normal. Wall motion is normal. EF is greater than or equal to 55%. Aortic valve is tricuspid. No evidence of stenosis by Doppler interrogation. Left atrium is normal at 2.7 cm. Mitral valve shows no prolapse. Trace MR. Right-sided chambers are grossly normal. Trace TR. ECHOCARDIOGRAM REPORT [id number] YAJAIRA SMITH TRANSINT:[id number] Voice Confirmation ID: [id number] DOCUMENT ID: [id number] SHABBIR QUEZADA MD CC: [id number] DICTATION DATE: 12/11/19 1519 COLOR MAKER FORMULATOR: 12/11/19 1841 DEP CLI 12/10/19 [id number] [place] [address]
== END | disposition home or self-care (01) ==
LOC: D.HCCECHO 10:32
PROVIDERS: ATTEND Internal Medicine Interventional Cardiology
DX: I25.10 Atherosclerotic heart disease of native coronary artery without angina pectoris (principal)

== ENCOUNTER → 2019-12-31 08:38 | Outpatient (CLI) | payer MEDICARE ==
[2019-11-28 11:14] VITALS: BMI 32.6
== END | disposition home or self-care (01) ==
LOC: D.HCCARDIO 08:38
PROVIDERS: ATTEND Internal Medicine Cardiovascular Disease
DX: I25.10 Atherosclerotic heart disease of native coronary artery without angina pectoris (principal)

== ENCOUNTER 2020-01-08 10:50 | Outpatient (CLI) | payer MEDICARE, OTHER ==
[~2020-01-08] VITALS: Ht 162.6 cm; Wt 84.2 kg
--- NOTE | ~2020-01-08 | HEMODYNAMI ---
PATIENT:YAJAIRA SMITH MEDICAL RECORD: [id number] : 48 LOCATION:[facility] ADMISSION DATE: 01/08/20 Generatedon:01/08/202013:53 Patient name: YAJAIRA SMITH Patient #: [id number] SSN : [id number] : 1950 Date of study: 01/08/2020 Page: Of Hemodynamic Procedure Report Patient Data Patient Demographics Procedure consent was obtained First Name: YAJAIRA Gender: Female Last Name: LUIS : 1950 Middle Initial: E Age: 69 year(s) Patient #: [id number] Race: SSN: [id number] Additional ID: [id number] Contact details [address]: [address] [place] [address] State: [place] City: [place] Zip code: [address] Past Medical History Allergies: No known allergies Admission Admission Data Admission Date: 01/08/2020 Admission Time: 10:50 Arrival Date: 01/08/2020 Arrival Time: 0:00 Admit Source: Other Insurance Payor: Medicare [facility] #: [id number] Height (in.): 64 BSA: 1.89 (m2) Height (cm.): 162.56 BMI: 31.86 (kg/m2) Weight (lbs.): 185.59 Weight (kg.): 84.18 Lab Results Lab Result Date: 01/08/2020 Lab Result Time: 0:00 Biochemistry Name Units Result Min Max BUN mg/dl 11 --(-*--)-- 7 18 Creatinine mg/dl 1.4 --(----)*- 0.6 1.3 eGFR ml/min 39 *-(----)-- 90 120 NONAFRICAN CBC Name Units Result Min Max Hematocrit % 39.5 -*(----)-- 42 54 Hemoglobin g/dl 12.6 -*(----)-- 13.5 17.5 Procedure Procedure Types Cath Procedure Diagnostic Procedure [facility] w/Coronaries Procedure Description Procedure Date Procedure Date: 01/08/2020 Procedure Start Time: 13:41 Procedure End Time: 13:52 Procedure Staff Name Function Jas Espinal MD Performing Physician Elly Metzger RT Monitor Adelia Lam RT Scrub Tai Stinson RN Nurse Bishop Kaur CRNA Additional personnel Procedure Data Cath Procedure Fluoroscopy Diagnostic fluoroscopy Total fluoroscopy Time: 1.2 time: 1.2 min min Diagnostic fluoroscopy Total fluoroscopy dose: 307 dose: 307 mGy mGy Contrast Material Contrast Material Type Amount (ml) Isovue 370 51 Entry Location Entry Primary Successful Side Size Upsize Upsize Entry Closure Succes sful Closure Location (Fr) 1 (Fr) 2 (Fr) Remarks Device Remarks Femoral Right 5 Fr Exoseal artery Estimated blood loss: 5 ml Diagnostic catheters Device Type Used For End Catheter Placement MULTIPACK JL 4.0 5Fr Procedure catheter MULTIPACK 3DRC 5Fr Procedure catheter MULTIPACK Pigtail 5 Fr Procedure catheter Procedure Complications No complications Procedure Medications Medication Administration Route Dosage 0.9% NaCl I.V. 100 ml/hr Oxygen etCO2 Nasal cannula 2 l/min Heparin Flush Bag added to field 2 bags (1000units/500ml NS) Lidocaine 2% added to field 20 Refer to Anesthesia Notes for Sedation Medications Hemodynamics Rest BSA: 1.89 (m2) HGB: 12.6 (g/dl) O2 Consumption: Estimated: 190.26 (ml/min) O2 Co nsumption indexed: Estimated:100.67 (ml/min/m) Heart Rate: 93 (bpm) Pressure Samples Time Site Value (mmHg) Purpose Heart Use Rate(bpm) 13:45 LV 30/2,4 Snapshot 93 Gradients Valve Time Site Site Mean SEP/DFP Peak To Heart Use 1 2 (mmHg) (sec/min) Peak Rate (mmHg) (bpm) Aortic 13:46 LV AO 95 Snapshots Pre Cath Intra NCS Post Cath Vital Signs Time Heart Resp SPO2 etCO2 NIBP (mmHg) Rhythm Pain Sedation Rate (ipm) (%) (mmHg) Status Level (bpm) 13:03:14 95 10 100 32.3 135/88(120) NSR 0 (11) 10(A) , No pain 13:07:17 96 12 100 27 149/99(141) NSR 0 (11) 10(A) , No pain 13:12:23 97 9 100 36 144/89(128) NSR 0 (11) 10(A) , No pain 13:16:35 93 11 100 36 140/86(130) NSR 0 (11) 10(A) , No pain 13:20:44 94 12 100 31.5 138/87(120) NSR 0 (11) 10(A) , No pain 13:24:52 94 21 100 34.5 146/93(125) NSR 0 (11) 10(A) , No pain 13:29:02 96 13 100 33.7 139/92(124) NSR 0 (11) 10(A) , No pain 13:33:08 95 10 100 34.5 151/100(119) NSR 0 (11) 10(A) , No pain 13:37:22 98 17 100 32.2 130/81(110) NSR 0 (11) 10(A) , No pain 13:41:32 96 20 100 0.7 115/76(93) NSR 0 (11) 9(A) , No pain 13:45:40 79 17 100 31.5 104/64(82) NSR 0 (11) 9(A) , No pain 13:49:39 97 17 100 30.7 109/76(90) NSR 0 (11) 9(A) , No pain Medications Time Medication Route Dose Verified Delivered Reason Notes Eff ectiveness by by 13:02:05 0.9% NaCl I.V. 100 Tai Tai Per ml/hr Shantell Stinson physician RN RN 13:02:17 Oxygen etCO2 2 Tai Tai for low 02 Nasal l/min Shantell Stinson sats cannula RN RN 13:02:29 Heparin Flush added 2 Tai Tai used for Bag to bags Shantell Stinson procedure (1000units/500ml field RN RN NS) 13:02:40 Lidocaine 2% added 20ml Tai Tai for local to vial Shantell Stinson anesthetic field RN RN 13:38:27 Refer to Tai Tai for Anesthesia Notes Shantell Stinson sedation for Sedation RN RN Medications Procedure Log Time Note 12:48:51 Informed consent obtained and on chart 12:49:43 Adelia Lam RT(R) sent for patient. Start room use. 12:50:23 Diagnostic Cath Status : Elective 12:50:45 Arrival Date: 01/08/2020 12:00:00 AM 12:50:46 Admit Source: Other 12:51:23 Patient Height : 64 inches 12:51:30 Patient Weight : 185.59 lbs 12:51:37 Insurance Payor : Medicare 12:53:40 Procedure Status Elective Heart Cath (OP). 12:53:50 Time tracking: Regular hours (M-F 7:00 - 5:00) 12:53:54 Plan of Care:Hemodynamics will remain stable., Cardiac rhythm will remain stable., Comfort level will be maintained., Respiratory function will remain adequate., Patient/ family verbilizes understanding of procedure., Procedure tolerated without complication., Recovers from procedure without complications.. 12:54:00 Patient received from Pre/Post Procedure Room to CCL 2 Alert and oriented. Tansferred to table in Supine position. 12:54:01 Warm blankets applied, and murtaza hugger turned on for patient comfort. 12:54:02 Correct patient and procedure confirmed by team. 12:54:02 ECG and BP/O2 sat monitors applied to patient. 12:54:13 H&P Date Dictated: 12/23/2019 Within 30 days and on chart.. 12:54:14 Pre-procedure instructions explained to patient. 12:54:14 Pre-op teaching completed and patient verbalized understanding. 12:54:16 Family in waiting room. 12:54:17 Patient NPO since Midnight. 12:54:19 Is the patient allergic to Iodine/contrast media? No. 12:54:25 Was the patient premedicated? No 12:54:26 Is patient on blood thinner?Yes 12:54:30 ACC The patient was administered the following blood thiners within the last 24 hours: ACCBrilinta 12:54:33 Patient diabetic? No. 12:54:35 If diabetic: On Metformin? N/A 12:54:40 Patient not . Patient is over age 55. 12:54:44 ----Pre-sedation anethsthesia assessment.---- 12:54:48 Previous problem with sedation/anesthesia? No ? 12:54:49 Snore? Yes 12:54:50 Sleep apnea? No 12:54:51 Deviated septum? No 12:54:53 Opens mouth fully? Yes 12:54:54 Sticks out tongue? Yes 12:54:55 Airway obstruction? No ? 12:54:58 Dentures? No ? 12:55:00 Risk of Mortality: 0.1 12:55:01 Risk of blood transfusion: 1.9 12:55:01 Risk of BRENT: 1.5 12:55:06 IV patent on arrival in left antecubital with 0.9% NaCl at [facility]. 12:56:07 Lab Result : BUN 11 mg/dl 12:56:07 Lab Result : Creatinine 1.4 mg/dl 12:56:07 Lab Result : eGFR NONAFRICAN 39 ml/min 12:56:40 Alarms reviewed by R. N. 12:56:40 Sharps counted by scrub and verified by R.N. 12:56:54 Stress Test: yes; abnormal INFERIOR 12:57:17 Right groin area was prepped with chlora-prep and draped in sterile fashion 12:57:51 Pre procedure: right dorsailis pedis pulse 2+ Normal; easily identifiable; not easily obliterated 12:57:55 Patient pain scale 0/10 ?. 12:58:02 Full Disclosure recording started 13:02:05 0.9% NaCl 100 ml/hr I.V. was administered by Tai Stinson RN; Per physician; Verbal order read back and verified. 13:02:17 Oxygen 2 l/min etCO2 Nasal cannula was administered by Tai Stinson RN; for low 02 sats; Verbal order read back and verified. 13:02:18 Vital chart was started 13:02:19 Baseline sample Acquired. 13:02:24 Rhythm: sinus tachycardia 13:02:29 Heparin Flush Bag (1000units/500ml NS) 2 bags added to field was administered by Tai Stinson RN; used for procedure; Verbal order read back and verified. 13:02:40 Lidocaine 2% 20ml vial added to field was administered by Tai Stinson RN; for local anesthetic; Verbal order read back and verified. 13:25:16 Use device set Femoral Dx 13:25:17 ACIST Syringe (86539) opened to sterile field. 13:25:18 Bag Decanter () opened to sterile field. 13:25:19 Medline Cath Pack ([id number]) opened to sterile field. 13:25:20 ACIST Hand Control (00317) opened to sterile field. 13:25:21 ACIST Manifold (05260) opened to sterile field. 13:25:22 DIAGNOSTIC Multipack 5Fr catheter set ([id number]) opened to sterile field. 13:25:23 SHEATH 5FR [place] ([id number]) opened to sterile field. 13:25:23 EMERALD Guide Wire (458-543) opened to sterile field. 13:27:01 --------ALL STOP TIME OUT------ 13::02 Final Timeout: patient, procedure, and site verified with staff and physician. All members of the team are in agreement. 13:27:04 Right groin site verified by team. 13:27:08 Fire Safety Assessment: A--An alcohol-based skin anteseptic being used preoperatively., C--Open oxygen or nitrous oxide is being used., D--An ESU, laser, or fiber-optic light is being used. 13:27:11 Physical assessment completed. ASA score P 2 - A patient with mild systemic disease as per Jas Espinal MD. 13:27:16 3b) 30-44 Moderately reduced kidney function. 13:27:21 Maximum allowable contrast dose (3.7 X eGFR X 0.75)108 ml. 13:27:25 Sedation plan: TIVA Medication:Propofol 13:27:31 Bishop Kaur CRNA present and monitoring patient for TIVA. 13:38:27 Refer to Anesthesia Notes for Sedation Medications was administered by Tai Stinson RN; for sedation; Verbal order read back and verified. 13:40:39 Procedure started. 13:41:14 Local anesthetic to right femoral artery with Lidocaine 2% by Jas Espinal MD.INITIAL ACCESS ONLY 13:41:39 A 5 Fr sheath was inserted into the Right Femoral artery 13:42:15 A MULTIPACK JL 4.0 5Fr catheter was advanced over the wire and used for Procedure. 13:42:44 LCA angiography performed. 13:42:47 Injector settings: Ml/sec: 3, Volume: 6, 13:43:35 Catheter removed. 13:43:48 A MULTIPACK 3DRC 5Fr catheter was advanced over the wire and used for Procedure. 13:44:14 RCA angiography performed. 13:44:18 Injector settings: Ml/sec: 3, Volume: 6, 13:44:38 ACCDominant side:Left 13:44:40 Catheter removed. 13:45:04 A MULTIPACK Pigtail 5 Fr catheter was advanced over the wire and used for Procedure. 13:45:41 LV gram done using LORENZANA 13:45:49 Injector settings: Ml/sec: 5, Volume: 15, 13:46:03 LV hemodynamics recorded. 13:46:10 EF : 55 % 13:46:21 Catheter removed. 13:47:11 Lab Result : Hemoglobin 12.6 g/dl 13:47:11 Lab Result : Hematocrit 39.5 % 13:47:13 EXOSEAL 5Fr (EX500) opened to sterile field. 13:47:15 Sheath removed intact; hemostasis achieved with Exoseal to the Right Femoral artery. 13:48:00 Procedure ended.(Physican Out) 13:51:02 Fluoroscopy time 01.20 minutes. 13:51:05 Fluoroscopy dose: 307 mGy 13:51:05 Flurop Dose total: 307 13:51:12 Dose Area Product 98795 mGy/cm. 13:51:17 Contrast amount:Isovue 370 51ml. 13:51:20 Maximum allowable dose exceeded? No. 13:51:21 Sharps counted by scrub and verified by R.N. 13:51:27 Post-op/insertion site Right Femoral artery dressed using a 4 x 4 and Tegaderm. 13:51:32 Post right femoral artery:stable, soft, clean and dry 13:51:33 Post Procedure Pulses reassessed and unchanged 13:51:39 Post procedure: right dorsailis pedis pulse 2+ Normal; easily identifiable; not easily obliterated. 13:51:42 Post-procedure physical assessment completed. ASA score P 2 - A patient with mild systemic disease as per Jas Espinal MD. 13:51:44 Post procedure rhythm: unchanged. 13:51:47 Estimated blood loss: 5 ml 13:51:48 Post procedure instruction explained to patient.Patient verbalizes understanding. 13:51:49 Patient needs reinforcement of post procedure teaching. 13:52:11 Procedure and supply charges have been captured, reviewed, submitted and are correct. 13:52:14 Procedure Complication : No complications 13:52:29 Vital chart was stopped 13:52:31 [facility] Findings: mild to moderate CAD (<70%) 13:52:34 Operative report dictated upon procedure completion. 13:52:34 See physician's report for complete and final results. 13:52:36 Report given to Pre/Post Procedure Room. 13:52:39 Patient transfered to Pre/Post Procedure Room with Stretcher. 13:52:41 Procedure ended. 13:52:41 Full Disclosure recording stopped 13:52:47 End room use (Document Last) Device Usage Item Name Manufacture Quantity Catalog Hospital Part Current Minimal L ot# / Number Charge Number Stock Stock Serial# Code ACIST Acist 1 85127 688022 003663 [id number] 20 Syringe Medical (67989) Systems Inc Bag Microtek 1 2001S 620084 28343 608683 5 Decanter Medical Inc. () Medline Medline 1 [id number] 042299 68295 097321 5 Cath Pack ([id number]) ACIST Hand Acist 1 89654 443263 655085 862994 5 Control Medical (92015) Systems Inc ACIST Acist 1 11385 897752 109265 971851 5 Manifold Medical (21388) Systems Inc DIAGNOSTIC Cardinal 1 LA2860 522977 85967 007023 30 Multipack Health 5Fr catheter set (KU6894) SHEATH 5FR Terumo 1 [id number] 564862 197302 665647 5 [place] (FBS617) EMERALD Cardinal 1 502-455 974984 235799 622531 5 Guide Wire [facility] (502455) MULTIPACK Cardinal 1 816836 5 JL 4.0 5Fr Health catheter MULTIPACK Cardinal 1 539470 5 3DRC 5Fr Health catheter MULTIPACK Cardinal 1 479844 5 Pigtail 5 Health Fr catheter EXOSEAL 5Fr Cardinal 1 EX500 889804 567923 264811 10 (EX500) Health Signature Audit [place] Stage Time Signature Unsigned Intra-Procedure 01/08/2020 Elly Metzger 1:53:25 PM RT(R) Intra-Procedure 01/08/2020 Tai 1:53:43 PM Shantell PAUL Intra-Procedure 01/08/2020 Jas Heredia 1:53:57 PM Kevin STATON Signatures Performing Physician : Signature : Jas Espinal MD Date : Time : Monitor : Elly Young Signature : RT Date : Time : Nurse : Tai Lorigan Signature : RN Date : Time : [address] [place] [address]
[2020-01-08] MEDS ORDERED: LUNESTA1 MG PO (11:46)
[2020-01-08] MEDS ORDERED: LUMIGAN 0.01%2.5 ML EACH EYE (11:47)
[2020-01-08 11:50] VITALS: BP 179/105; Ht 162.6 cm; Wt 84.2 kg
[2020-01-08 12:22] LABS: ANION GAP 12.9 mmol/L (8-16); CALCIUM 9.2 mg/dL (8.5-10.1); CARBON DIOXIDE 24.2 mmol/L (21.0-32.0); CHOL - HDL RATIO 2.9 ratio (2.3-4.1); CREATININE - SERUM 1.4 mg/dL (0.6-1.3); LDL-HDL RATIO 1.2 ratio (1.5-3.5); POTASSIUM - SERUM 4.1 mmol/L (3.5-5.1)
[2020-01-08 13:44] LABS: HEMATOCRIT 39.5 % (36.0-48.0); HEMOGLOBIN 12.6 g/dL (12-16); LYMPHOCYTES 39.5 % (15-50); MCH 28.3 pg (26.0-34.0); MCHC 31.9 g/dL (31.0-37.0); MCV 88.8 fL (80.0-100.0); MEAN PLATELET VOLUME 8.5 fL (7.4-10.4); NEUTROPHILS 52.8 % (40-80); PLATELET COUNT 303 10x3/uL (130-400); RBC 4.45 10x6/uL (4.00-5.40); RDW 14.2 % (11.5-14.5); WBC 5.4 10x3/uL (4.8-10.8)
--- NOTE | 2020-01-08 14:00 | NUR ---
PT REC'D TO ROOM 3 VIA STRETCHER FROM SURGICAL ASST. MONITORS ESTAB. FRIEND AT BS. SEE FRONT END MECHANIC, ALARMS ON AND C/L IN REACH.
--- NOTE | 2020-01-08 14:15 | NUR ---
VSS. R GROIN SITE SOFT, PULSES PALP WITH BRISK CAP REFILL. PT DENIES NEEDS, ALARMS ON AND C/L IN REACH.
--- NOTE | 2020-01-08 14:45 | NUR ---
R GROIN SITE SOFT, C/D/I. NO S/S BLEEDING OR HEMATOMA. FEET WARM WITH PALP PULSES. ALARMS ON AND C/L IN REACH.
--- NOTE | 2020-01-08 15:00 | NUR ---
R GROIN SITE SOFT, C/D/I, NO S/S BLEEDING OR HEMATOMA. HOB ELEVATED AND SANDWICH TRAY PROVIDED WITH ICE WATER. DENIES OTHER NEEDS.
--- NOTE | 2020-01-08 15:30 | NUR ---
R GROIN SITE SOFT, C/D/I. NO S/S BLEEDING OR SWELLING. ALL DISCHARGE INSTRUCTIONS REVIEWED WITH PT, UNDERSTANDING VERBALIZED. VSS.
--- NOTE | 2020-01-08 15:43 | NUR ---
R GROIN SITE SOFT, NO S/S BLEEDING OR HEMATOMA. PIV D/C'D INTACT, DSG APPLIED. PT ALLOWED UP TO GET DRESSED AND GO TO BR INDEPENDENTLY.
--- NOTE | 2020-01-08 16:00 | NUR ---
PT DISCHARGED VIA WC TO PRIVATE VEHICLE. PT HAS ALL PAPERWORK AND BELONGINGS. NO QUESTION/CONCERNS VOICED AT THIS TIME.
--- NOTE | 2020-01-08 16:09 | OP ---
PATIENT NAME: YAJAIRA SMITH MEDICAL RECORD: [id number] :[birth year] LOCATION:D.CAT ADMISSION DATE: SURGEON: SHABBIR QUEZADA MD DATE OF OPERATION: 01/08/2020 PROCEDURE: Left heart catheterization, selective coronary angiography, right femoral artery approach. CATHETERS: A 5-Greenlandic sheath, 5/4 left and right Russ, 5/4 pig. The procedure was well tolerated. The patient returned to the mckeon, sheath removed. ExoSeal device placed. FINDINGS: Left ventriculography in 30-degree LORENZANA view: Normal wall motion and normal systolic function. CORONARY ANATOMY: LEFT MAIN: Left main is free of disease. LAD: LAD in the area of previous stenting is widely patent. No evidence of restenosis. No progression of cowlitz disease. CIRCUMFLEX: Has a left dominant circumflex, previously placed stent is widely patent, previously placed stent to the OM is widely patent. No evidence of restenosis. No progression of cowlitz disease. RIGHT CORONARY ARTERY: Rudimentary and free of disease. IMPRESSION: Patent stent, no progression of cowlitz disease. LV function remains normal. TRANSINT:[id number] Voice Confirmation ID: [id number] DOCUMENT ID: [id number] SHABBIR QUEZADA MD at 1609 CC: [id number] DICTATION DATE: 01/08/20 1356 FIELD CARE MANAGER: 01/08/20 1541 DEP CLI 01/08/20 [facility] [address] [place] [address]
== END 2020-01-08 16:00 | disposition home or self-care (01) ==
LOC: D.CATH 10:50
PROVIDERS: ATTEND Internal Medicine Interventional Cardiology
DX: I25.119 Atherosclerotic heart disease of native coronary artery with unspecified angina pectoris (principal); I10 Essential (primary) hypertension; R06.09 Other forms of dyspnea

== ENCOUNTER → 2020-03-16 11:14 | Outpatient (CLI) | payer MEDICARE, OTHER ==
[2020-01-08 11:50] VITALS: BMI 31.8
[~2020-03-16 11:14] MED LIST changes: +LUNESTA1 MG PO
== END | disposition home or self-care (01) ==
LOC: D.MRI 11:00
PROVIDERS: ATTEND Clinical Nurse Specialist Family Health
DX: M25.551 Pain in right hip (principal)

== ENCOUNTER 2020-04-12 10:28 | Day surgery (SDC) | payer MEDICARE, OTHER ==
[2020-04-09 13:25] LABS: HEMATOCRIT 36.1 % (36.0-48.0); HEMOGLOBIN 11.1 g/dL (12-16); MCH 28.2 pg (26.0-34.0); MCHC 30.7 g/dL (31.0-37.0); MCV 91.9 fL (80.0-100.0); MEAN PLATELET VOLUME 8.2 fL (7.4-10.4); RBC 3.93 10x6/uL (4.00-5.40); RDW 15.2 % (11.5-14.5); WBC 5.9 10x3/uL (4.8-10.8)
[~2020-04-12] VITALS: Ht 162.6 cm; Wt 81.6 kg
--- NOTE | ~2020-04-12 | OP ---
PATIENT NAME: YAJAIRA SMITH MEDICAL RECORD: [id number] :48 LOCATION:[facility] ADMISSION DATE: SURGEON: IRENE CLANCY MD DATE OF OPERATION: 04/12/2020 PREOPERATIVE DIAGNOSIS: Osteoarthritis, right hip. POSTOPERATIVE DIAGNOSIS: Osteoarthritis, right hip. PROCEDURE: Injection of the right hip under fluoroscopy. SURGEON: Irene Clancy MD ANESTHESIA: TIVA. INTRAOPERATIVE COMPLICATIONS: None. SUMMARY OF PATHOLOGIC FINDINGS: The patient did have fawr-md-nlrekguj osteoarthritis seen on fluoroscopy consistent with radiographs. OPERATIVE SUMMARY IN DETAIL: After obtaining the appropriate preoperative orthopedic surgery consent as well as anesthetic consultation, evaluation and clearance, the patient was brought to the operating room and placed on the operating table in supine position. After adequate TIVA anesthesia was administered, the patient's right hip was prepped and draped in routine sterile fashion. Under fluoroscopic guidance, 18-gauge spinal needle was directed into the hip. Small amount of Isovue was used to be sure that the needle was in the appropriate place and then 5 cc of 0.25% Marcaine with epinephrine and 40 mg of Depo-Medrol were injected into the patient's right tip. Tip was withdrawn. Bandage was applied. The patient was the awakened and taken back to outpatient in stable condition. TRANSINT:[id number] Voice Confirmation ID: [id number] DOCUMENT ID: [id number] IRENE CLANCY MD CC: [id number] DICTATION DATE: 04/12/20928 DIRECTOR OF HOME ECONOMICS: 04/12/20 173 DEP SDC 04/12/20 [facility] [address] [place] [address]
[2020-04-12 08:17] VITALS: BP 113/68; Ht 162.6 cm; Wt 81.6 kg
--- NOTE | 2020-04-12 10:23 | NUR ---
0956 IV DC'D. CATHETER TIP INTACT. NO BLEEDING AT SITE AFTER HOLDING PRESSURE. COBAN DRESSING APPLIED. REVIEWED DISCHARGE INSTRUCTIONS WITH PT AND HER ACCOUNTS RECEIVABLE ACCOUNTANT WHO BOTH VOICE UNDERSTANDING OF INSTRUCTIONS.
[~2020-04-12 10:28] MED LIST changes: +EFFIENT10 MG PO
== END 2020-04-12 10:29 | disposition home or self-care (01) ==
LOC: D.OPS 10:28
PROVIDERS: Anesthesiology; ATTEND Orthopaedic Surgery
DX: M16.11 Unilateral primary osteoarthritis, right hip (principal)

== ENCOUNTER 2020-12-09 09:10 | Day surgery (SDC) | payer MEDICARE, OTHER ==
[~2020-12-09] VITALS: Ht 162.6 cm; Wt 88.6 kg
[2020-12-09 09:24] LABS: BASOPHILS 0.5 % (0-2); EOSINOPHILS 0.7 % (0-7); HEMATOCRIT 41.2 % (36.0-48.0); HEMOGLOBIN 13.2 g/dL (12-16); MCH 29.2 pg (26.0-34.0); MCHC 32.1 g/dL (31.0-37.0); MCV 90.7 fL (80.0-100.0); MEAN PLATELET VOLUME 6.2 fL (7.4-10.4); NEUTROPHILS 70.8 % (40-80); RBC 4.54 10x6/uL (4.00-5.40); RDW 16.7 % (11.5-14.5); WBC 10.6 10x3/uL (4.8-10.8)
[2020-12-09 09:35] LABS: PLATELET COUNT 392 10x3/uL (130-400)
[2020-12-09 09:36] LABS: ANION GAP 10.8 mmol/L (8-16); CALCIUM 9.3 mg/dL (8.5-10.1); CARBON DIOXIDE 29.8 mmol/L (21.0-32.0); CREATININE - SERUM 1.5 mg/dL (0.6-1.3); POTASSIUM - SERUM 4.6 mmol/L (3.5-5.1)
[2020-12-09 10:14] VITALS: BP 113/63; Ht 162.6 cm; Wt 88.6 kg
--- NOTE | 2020-12-09 11:08 | NUR ---
ORDER FROM DR. JAVIER FAXED TO OFFICE 1115 DC TEACHING COMPLETED TO PT AND SISTER-INDIA, 1130 PIV REMOVED, CATHETER INTACT, PT GETTING DRESSED WITH SISTER'S HELP 1148 PT DC'D VIA WC ACCOMPANIED BY THIS NURSE TO POV WITH ALL BELONGINGS AND DC PACKET WITH SISTER DRIVING.
--- NOTE | 2020-12-09 12:40 | OP ---
PATIENT NAME: YAJAIRA SMITH MEDICAL RECORD: [id number] :48 LOCATION:[facility] ADMISSION DATE: SURGEON: AFSHIN JAVIER MD DATE OF OPERATION: 12/09/2020 PROCEDURE: Colonoscopy. PREOPERATIVE DIAGNOSES: Constipation and history of polyps. MEDICATION: Propofol per anesthesia. DESCRIPTION OF PROCEDURE: Colonoscopy was attempted. The colonoscope was inserted through the rectum and advanced to 20 cm. Unfortunately, there was solid stool, which was thick and adherent and could not be suctioned. The thick solid stool prevented visualization; therefore, the procedure was stopped. FINAL DIAGNOSIS: Poor prep with solid stool. PLAN: Recommend repeat colonoscopy with 2-day prep and 2 days of clear liquids. TRANSINT:[id number] Voice Confirmation ID: [id number] DOCUMENT ID: [id number] AFSHIN JAVIER MD at 1240 CC: [id number] DICTATION DATE: 12/09/20 1043 SHOW DOG TRAINER: 12/09/20 1054 REG [facility] [address] [place] [address]
== END 2020-12-09 11:45 | disposition home or self-care (01) ==
LOC: D.OPS 09:10
PROVIDERS: Anesthesiology; ATTEND Internal Medicine Gastroenterology
DX: K59.00 Constipation, unspecified (principal); Z86.010 Personal history of colon polyps; K21.9 Gastro-esophageal reflux disease without esophagitis